=== PATIENT | male | born 1955 | race Caucasian/White ===

== ENCOUNTER 2020-02-15 19:17 | Observation (INO) | payer MEDICARE, MEDICAID ==
[2020-02-15] VITALS (12 sets, daily range): BP systolic 135–171; BP diastolic 66–81
[~2020-02-15] VITALS: Ht 188 cm; Wt 74.4 kg
--- OUTSIDE RECORDS SUMMARY | 2020-02-15 19:27 | XMS REPORT ---
Author Author Christiano WEBB Organization [facility] Address [address] [place], [place] [address] Care Team Providers Care Purchasing Intern Name Role Phone CELI WEBB PCP CELI WEBB PreferredProvider Allergies and Adverse Reactions Not available. Plan of Treatment Not available. Medications Active Name Start Date Estimated Completion Date SIG Co mments Vraylar 1.5 mg oral capsule 02/11/2019 03/13/2019 take 1 capsule (1.5 mg) by oral route once daily for 30 days metformin 500 mg oral tablet 02/11/2019 03/13/2019 attila e 1 tablet (500 mg) by oral route 2 times per day with morning and evening meals for 30 days Discontinued Name Start Date Discontinued Date SIG Comments olanzapine 20 mg oral tablet 02/07/2019 02/11/2019 gabapentin 800 mg oral tablet 01/28/2019 02/11/2019 duloxetine 60 mg oral capsule,delayed release(DR/EC) 01/22/2019 Problem List Description Status Onset Schizoaffective disorder, bipolar type Active Type 2 diabetes mellitus with hyperglycemia Active Medication management Active Bipolar affective disorder, current epis ode depressed, current episode severity unspecified Active 02/14/2019 Type 2 diabetes mellitus with hyperglyce modesta, without long-term current use of insulin Active 02/14/2019 Vital Signs Date Time BP-Sys(mm[Hg] BP-Lizz(mm[Hg]) HR(bpm) RR(rpm) Temp WT HT HC BMI BSA BMI Percentile O2 Sat(%) 02/10/2019 2:58:00 PM 132 mmHg 72 mmHg 72 bpm 19 rpm 98.1 F 173.312 lbs 96 % Social History Not available. History of Procedures Date Ordered Description Order Status 02/11/2019 12:00 AM COMPLETE CBC W/AUTO DIFF WBC Returned 02/11/2019 12:00 AM COMPREHEN METABOLIC PANEL Returned 02/11/2019 12:00 AM GLYCOSYLATED HEMOGLOBIN TEST Returned 02/11/2019 12:00 AM LIPID PANEL Returned 02/11/2019 12:00 AM Prostate Cancer Screening Returned Results Summary Not available. History Of Immunizations Not available. History of Past Illness Name Date of Onset Comments Schizoaffective disorder, bipolar type Type 2 diabetes mellitus with hyperglycemia Medication management Bipolar affective disorder, current epis ode depressed, current episode severity unspecified 02/14/2019 Type 2 diabetes mellitus with hyperglyce modesta, without long-term current use of insulin 02/14/2019 Schizoaffective disorder, bipolar type Feb 11 2019 9:48AM Type 2 diabetes mellitus with hyperglycemia Feb 11 2019 9:4 8AM Medication management Feb 11 2019 9:48AM Prostate cancer screening Feb 11 2019 9:48AM Smoker Feb 10 2019 3:01PM Medication management Feb 10 2019 3:01PM Weight loss, non-intentional Feb 10 2019 3:01PM Type 2 diabetes mellitus with hyperglycemia Feb 10 2019 3:0 1PM Bipolar affective disorder, current epis ode depressed, current episode severity unspecified Feb 10 2019 3:01PM Stress due to marital problems Feb 10 2019 3:01PM Schizoaffective disorder, bipolar type Feb 10 2019 3:01PM Payers Insurance Name Company Name Plan Name Plan Number Policy Number Charles cy Group Number Start Date Medicare [facility] Medicare RH [id number] N/ A Medicare Part A Medicare - Lab/Xray [id number] N/A [facility] [employer] [facility] Comm [id number] N/A History of Encounters Visit Date Visit Type Provider 02/10/2019 Office visit CELI JJ
--- OUTSIDE RECORDS SUMMARY | 2020-02-15 19:27 | XMS REPORT ---
Author Author Christiano WEBB Organization [facility] Address [address] [place] [id number] Care Team Providers Care Education Professional Name Role Phone CELI WEBB PCP CELI WEBB PreferredProvider Allergies and Adverse Reactions Not available. Plan of Treatment Planned Activity Comments Planned Date Planned Time Plan/Goal CBC with Differential 02/11/2019 12:00 AM CMP 02/11/2019 12:00 AM Hgb A1c 02/11/2019 12:00 AM .Lipid Panel 02/11/2019 12:00 AM Medications Active Name Start Date Estimated Completion [...] mellitus with hyperglycemia Active Medication management Active Vital Signs Date Time BP-Sys(mm[Hg] BP-Lizz(mm[Hg]) HR(bpm) RR(rpm) Temp WT HT HC BMI BSA BMI Percentile O2 Sat(%) 02/10/2019 2:58:00 PM 132 mmHg 72 mmHg 72 bpm 19 rpm 98.1 F 173.312 lbs 96 % Social History Not available. History of Procedures Not available. Results Summary Not available. History Of Immunizations Not available. History of Past Illness Name Date of Onset Comments Schizoaffective disorder, bipolar type Type 2 diabetes mellitus with hyperglycemia Medication management Schizoaffective disorder, bipolar type Feb 11 2019 9:48AM Type 2 diabetes mellitus with hyperglycemia Feb 11 2019 9:4 8AM Medication management Feb 11 2019 9:48AM Prostate cancer screening Feb 11 2019 9:48AM Payers Insurance Name Company Name Plan Name Plan Number Policy Number Charles cy Group Number Start Date Medicare RHC Medicare [facility] [id number] N/ A Medicare Part A Medicare - Lab/Xray [id number] N/A [facility] [id number] N/A History of Encounters Visit Date Visit Type Provider 02/10/2019 Office visit CELI JJ
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
--- OUTSIDE RECORDS SUMMARY | 2020-02-15 19:28 | XMS REPORT ---
Author Author Christiano Case Organization Severino Case MD Address [address] [place] [address] Care Team Providers Care Dock Operations Supervisor Name Role Phone Severino Case Unavailable PROBLEMS Type Condition ICD9-CM Code [id number] Code Onset Dates Condition S tatus SNOMED Code Problem Type 2 diabetes mellitus with other specified complication E11.69 Active 12977330338872 Problem Low back pain M54.5 Active 446278 007 Problem Essential (primary) hypertension I10 Active 87780951 ALLERGIES Unknown Allergies SOCIAL HISTORY No smoking Hx information available PLAN OF CARE VITAL SIGNS MEDICATIONS Medication Instructions Dosage Frequency Start Date End Date Duration S tatus Hydrocodone-Acetaminophen 5-325 MG Orally q.i.d. for pain 1 tablet as needed 30 days Active RESULTS No Results PROCEDURES No Known procedures IMMUNIZATIONS No Known Immunizations
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
--- OUTSIDE RECORDS SUMMARY | 2020-02-15 19:28 | XMS REPORT ---
Author Christiano Ortiz Organization [employer] Address Unknown Phone Unavailable Care Team Providers Care Rehab Rn Name Role Phone Raleigh Nuno CP Unavailable Allergies No Known Allergies Problems Problem Type Condition ICD-9 Code Onset Dates Condition Statu s Problem Polyneuropathy in diabetes 357.2 A ctive Problem Lumbago 724.2 Active Problem Unspecified essential hypertension 401.9 Active Problem Diabetes with other specifie d manifestations, type II or unspecified type, not stated as uncontrolled 250.80 Active Assessment Lumbago 724.2 Active Medications Medication Code System Code Instructions Start Date End Date Status Dosage Hydrocodone-Acetaminophen [facility] [address]-81 5-325 MG Orally q.i. d. for pain 1 tablet as needed Results No Known Results Summary Purpose [employer] Submission
--- OUTSIDE RECORDS SUMMARY | 2020-02-15 19:28 | XMS REPORT | Clinical Summary ---
Author Author Christiano Coreas Organization [facility] Address Unknown Phone Unavailable Allergies, Adverse Reactions, Alerts Allergy Name Reaction Description Start Date Severity Status Pr ovider Allergies Unknown Conditions or Problems Problem Name Problem Code Onset Date Status Entry Date Provider Comment Standard Description Annotate Diabetes, Type 2 250.00 Active Karey Li RMTina Diabetes mellitus without mention of complication, type II or unspecified type, not stated as uncontrolled Hypertension 401.9 Active MARLA MerlosTina Unspecified essential hypertension Medication List Medication Instructions Start Date Stop Date Generic Name NDC Status Provider Patient Instruction GABAPENTIN 800 MG ORAL TABS 1 tid GABAPENTIN 584557 43251 Active Karey Li RMA Active HYDROCODONE-ACETAMINOPHEN 5-325 MG ORAL TABS 1 qid 8 HYDROCODONE-ACETAMINOPHEN 38515488131 Active Karey Li RMA Active GLUCOPHAGE 1000 MG ORAL TABS 1 bid METFORMIN HCL 91732766471 Active Karey Li RMA Active LISINOPRIL-HYDROCHLOROTHIAZIDE 20-12.5 MG ORAL TABS 1 daily 20 07/07/28 LISINOPRIL-HYDROCHLOROTHIAZIDE 62150877867 Active Karey Li RMA Active PHENAZO 200 MG ORAL TABS 1 tab prn PHENAZOPYRIDIN E HCL 49530511413 Active Karey Li RMA Active LOVASTATIN 20 MG ORAL TABS 1 daily LOVASTATIN 8875826 7606 Active Karey Li RMA Active LORAZEPAM 2 MG ORAL TABS 1 tid LORAZEPAM 8139280642 1 Active Karey Li RMA Active LANTUS SOLOSTAR 100 UNIT/ML SOLN 30 units daily INSULIN GLARGINE 26690144234 Active Karey Li RMA Active CYMBALTA 20 MG ORAL CPEP 1 bid DULOXETINE HCL 46364 916727 Active AMARI Merlos Active ZYPREXA 20 MG ORAL TABS 1 daily OLANZAPINE 7413552636 0 Active AMARI Merlos Active
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
--- OUTSIDE RECORDS SUMMARY | 2020-02-15 19:28 | XMS REPORT | Continuity of Care Document ---
Author Author [facility] Organization [facility] Address [address] [place] [address] Phone Unavailable Care Team Providers Care Accounting Machine Operator Name Role Phone GOKUL YEAGER MD PCP Insurance Providers Payer Name Policy Number Subscriber Name Relationship Medicare [id number] Maria Ines Rossi 18 Self / Same As Patient Advance Directives Directive Response Recorded Date/Time Living Will No 07/13/16 9:48am Advance Directives No 07/25/16 8:47am Advance Directive on File No 10/14/16 8:52p m Durable POA for HC No 10/14/16 8:52pm Power of Welcome Hostess No 10/14/16 8:52pm Organ Donor No 10/14/16 8:52pm Living Will No 10/14/16 8:52pm Chief Complaint and Reason for Visit Chief Complaint Altered Mental Status Reason for Visit [id number] Recent unexplained weight loss [id number] Problems Active Problems Medical Problem Onset Date Status Dehydration, moderate Unknown Acute Recent unexplained weight loss Unknown Acute Schizophrenia, chronic condition Unknown Acute Seizure with provoking factor Unknown Acute Medications Current Home Medications Medication Dose Units Route Directions Days/Qty Instructions Star t Date Olanzapine 5 Mg 15 Mg Oral Once A Day for Unknown 07/24/16 Duloxetine Hcl 20 Mg 20 Mg Oral Twice A Day for Unknown 07/24/16 Metformin Hcl 1,000 Mg 500 Mg Oral Twice A Day for Diabetes 10/14/16 Lorazepam 1 Mg 0.5 Mg Oral Four Times A Day for Anxiety 10/14/16 Gabapentin 800 Mg 800 Mg Oral Three Times A Day for Neuropat hy 10/14/16 Past Home Medications Medication Directions Ordered Status Lovastatin 20 Mg Tablet, 20 Mg Oral Once A Day for High Cholestr ol 07/24/16 Discontinued Lisinopril/Hydrochlorothiazide 1 Each Tablet, 1 Each O ral Once A Day for Hypertension 07/24/16 Discontinued Social History Social History Problem Response Recorded Date/Cleve e Alcohol Use other 10/14/2016 6:49pm Smoking Status Current every day smoker 10/14/2016 6:49 pm Smoked in the last 12 months? Yes 10/14/2016 6:49pm Do you dip or chew tobacco? No 10/14/2016 6 :49pm Approx how many cigs per day? 22 10/14/2016 6:49pm Level of Dependence High 10/14/2016 6:49pm Former smoker, last day smoked? 10/14/2016 10/14/20 16 6:49pm Query Response Start Date Stop Date Smoking Status Current every day smoker 020 Hospital Discharge Instructions No hospital discharge instructions. Plan of Care Discharge Date 10/14/16 8:30pm Disposition 01 D/C HOME Condition at Discharge Improved Instructions/Education Provided Altered Mental Status (ED) Forms Provided ER Discharge Phone Call [facility] k Prescriptions See Medication Section Referrals GOKUL YEAGER MD - Additional Instructions/Education Drink WATER every 20 minutes while awake through the next 24 hours, with a goal of 4 liters (enough that your urine is either clear, or very pale yellow). Obtain rest/ avoid exertion for the next [address] Follow up with Dr. Yeager to discuss further diagnostic evaluation of sudden weight loss. A full body bone scan may be of benefit. Reference Links [facility] Functional Status Query Response Date Recorded Activities of Daily Living Performs w/o Assistance October 14, 2016 6:36pm Cognitive Function Intact October 14, 2016 6:36pm Allergies, Adverse Reactions, Alerts No known allergies. Immunizations No immunization records. Vital Signs Acute Vital Signs Vital Response Date/Time Temperature (Fahrenheit) 97.6 degrees F (97.6 - 99.5) 2015 8:25pm Temperature (Calculated Celsius) 36.59621 degrees C (36.4 - 37.5) 10/14/2016 8:25pm Temperature Source Temporal Artery Scan 10/14/2016 8:25pm Pulse Pulse Ox Pulse Rate (adult) 80 beats per minute (60 - 90) 10/14/20 8:25pm Pulse Location Modifier Right 10/14/2016 7: 45pm Oxygen Saturation Respiratory Rate 16 breaths per minute (12 - 24) 10/14/20 8:25pm O2 Sat by Pulse Oximetry 96 % (90 - 100) 10/14/2016 8 :25pm Blood Pressure 160/76 mm Hg 10/14/2016 8:25pm Blood Pressure Mean 104 mm Hg 10/14/2016 8:25pm Height 6 ft 2 in Weight 184 lb Body Mass Index 23.6 kg/m^2 Results Pending Laboratory Results Test Name Collection Date/Time Procedures Procedure Status Date Provider(s) ANESTH LOW INTESTINE SCOPE Completed 07/25/16 DENA BETANCOURT GLASS POLISHER DIAGNOSTIC COLONOSCOPY Completed 07/25/16 MARIA INES BROWN MD INSPECTION OF LOWER INTESTINAL TRACT, ENDO Completed 07/25 MARIA INES BROWN MD, ARIC B. GLASS POLISHER Encounters Encounter Location Arrival/Admit Date Discharge/Depart Date Attending Provider Departed Emergency Room [facility] 10/14/16 6:15pm 10/14 8:30pm KM MCKEON APRN Departed Surgical Day Care [facility] 07/25/16 7:35am 07/25/16 11:50am GOKUL YEAGER MD Registered Clinic [facility] 07/13/16 9:47am GOKUL YEAGER MD Recent Diagnosis
--- OUTSIDE RECORDS SUMMARY | 2020-02-15 19:28 | XMS REPORT ---
Author Christiano Ortiz Organization [employer] Address Unknown Phone Unavailable Care Team Providers Care School Community Relations Coordinator Name Role Phone Raleigh Nuno CP Unavailable Allergies No Known Allergies Problems Problem Type Condition Code Onset Dates Condition Statu s Problem Low back pain M54.5 Active Problem Essential (primary) hypertension I10 Active Problem Type 2 diabetes mellitus with other specified complica tion E11.69 Active Assessment Lumbago 724.2 Active Medications Medication Code System Code Instructions Start Date End Date Status Dosage Hydrocodone-Acetaminophen [facility] [address]-21 5-325 MG Orally q.i. d. for pain 1 tablet as needed Results No Known Results Summary Purpose [employer] Submission
--- OUTSIDE RECORDS SUMMARY | 2020-02-15 19:28 | XMS REPORT ---
Author Author Christiano Case Organization [employer] Address Unknown Phone Unavailable Care Team Providers Care Time Piece Repairer Name Role Phone Severino Case CP Unavailable Allergies No Known Allergies Problems Problem Type Condition Code Onset Dates Condition Statu s Problem Low back pain M54.5 Active Problem Essential (primary) hypertension I10 Active Problem Type 2 diabetes mellitus with other specified complica tion E11.69 Active Medications Medication Code System Code Instructions Start Date End Date Status Dosage Hydrocodone-Acetaminophen [facility] [address]-22 5-325 MG Orally q.i. d. for pain 1 tablet as needed Results No Known Results Summary Purpose [employer] Submission
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
--- OUTSIDE RECORDS SUMMARY | 2020-02-15 19:28 | XMS REPORT ---
Author Christiano Ortiz Organization [employer] Address Unknown Phone Unavailable Care Team Providers Care Sub Arc Operator Name Role Phone Raleigh Nuno CP Unavailable [...] Start Date End Date Status Dosage Hydrocodone-Acetaminophen [facility] [address]-93 5-325 MG Orally q.i. d. for pain 1 tablet as needed Results No Known Results Summary Purpose [employer] Submission
--- OUTSIDE RECORDS SUMMARY | 2020-02-15 19:28 | XMS REPORT ---
Author Christiano Ortiz Organization [employer] Address Unknown Phone Unavailable Care Team Providers Care Conservation Or Heritage Architect Name Role Phone Raleigh Nuno CP Unavailable Allergies No Known Allergies Problems Problem Type Condition ICD-9 Code Onset Dates Condition Statu s Problem Polyneuropathy in diabetes 357.2 A ctive Problem Lumbago 724.2 Active Problem Unspecified essential hypertension 401.9 Active Problem Diabetes with other specifie d manifestations, type II or unspecified type, not stated as uncontrolled 250.80 Active Medications Medication Code System Code Instructions Start Date End Date Status Dosage Hydrocodone-Acetaminophen [facility] [address]-37 5-325 MG Orally q.i. d. for pain 1 tablet as needed Results No Known Results Summary Purpose [employer] Submission
--- OUTSIDE RECORDS SUMMARY | 2020-02-15 19:28 | XMS REPORT ---
Author Christiano Ortiz Organization [employer] Address Unknown Phone Unavailable Care Team Providers Care Safe Deposit Box Rental Clerk Name Role Phone Raleigh Nuno CP Unavailable [...] Start Date End Date Status Dosage Hydrocodone-Acetaminophen [facility] [address]-44 5-325 MG Orally q.i. d. for pain 1 tablet as needed Results No Known Results Summary Purpose [employer] Submission
--- OUTSIDE RECORDS SUMMARY | 2020-02-15 19:28 | XMS REPORT | Clinical Summary ---
Author Author Christiano Coreas Organization [facility] Address Unknown Phone Unavailable Allergies, Adverse Reactions, [...] 800 MG ORAL TABS 1 tid GABAPENTIN 564257 63262 Active Karey Li RMA Active HYDROCODONE-ACETAMINOPHEN 5-325 MG ORAL TABS 1 qid 8 HYDROCODONE-ACETAMINOPHEN 99407277114 Active Karey Li RMA Active GLUCOPHAGE 1000 MG ORAL TABS 1 bid METFORMIN HCL 62509095512 Active Karey Li RMA Active LISINOPRIL-HYDROCHLOROTHIAZIDE 20-12.5 MG ORAL TABS 1 daily 20 07/07/28 LISINOPRIL-HYDROCHLOROTHIAZIDE 47244812331 Active Karey Li RMA Active PHENAZO 200 MG ORAL TABS 1 tab prn PHENAZOPYRIDIN E HCL 83228680386 Active Karey Li RMA Active LOVASTATIN 20 MG ORAL TABS 1 daily LOVASTATIN 5941862 7606 Active Karey Li RMA Active LORAZEPAM 2 MG ORAL TABS 1 tid LORAZEPAM 8426087952 1 Active Karey Li RMA Active LANTUS SOLOSTAR 100 UNIT/ML SOLN 30 units daily INSULIN GLARGINE 09988548295 Active Karey Li RMA Active CYMBALTA 20 MG ORAL CPEP 1 bid DULOXETINE HCL 07907 143781 Active AMARI Merlos Active ZYPREXA 20 MG ORAL TABS 1 daily OLANZAPINE 9269401316 0 Active AMARI Merlos Active
--- OUTSIDE RECORDS SUMMARY | 2020-02-15 19:28 | XMS REPORT ---
Author Christiano Ortiz Organization [employer] Address Unknown Phone Unavailable Care Team Providers Care Program Coordinator Executive Education Name Role Phone Raleigh Nuno CP Unavailable [...] Start Date End Date Status Dosage Hydrocodone-Acetaminophen [facility] [address]-30 5-325 MG Orally q.i. d. for pain Active 1 tablet as needed Results No Known Results Summary Purpose [employer] Submission
--- OUTSIDE RECORDS SUMMARY | 2020-02-15 19:28 | XMS REPORT ---
Author Christiano Ortiz Organization [employer] Address Unknown Phone Unavailable Care Team Providers Care Security Escort Name Role Phone Raleigh Nuno CP Unavailable Allergies, Adverse Reactions, Alerts Substance Reaction Event Type N.K.D.A. Info Not Available Non Drug Allergy Problems Problem Type Condition Code Onset Dates Condition Statu s Assessment Acute sinusitis, unspecified J01.90 Active Medications Medication Code System Code Instructions Start Date End Date Status Dosage Cephalexin [facility] [address]-68 500 MG Orally Three times a day N 2014Sep 03, 2015 1 capsule Zyprexa [facility] [address]-50 20 MG Orally Once a day 1 tablet Lantus [facility] [address]-52 100 UNIT/ML Subcutaneous Once a day February 30 units Lancet Device [facility] [address] . dx code 250.80 once a day December 23, 2013 as directed Hydrocodone-Acetaminophen [facility] [address]-98 5-325 MG Orally q.i. d. for pain 1 tablet as needed Lisinopril-Hydrochlorothiazide [facility] 07455370909 20-12.5 MG TAKE 1 TABLET BY MOUTH EVERY DAY FOR BLOOD PRESSURE Contour Blood Glucose System [facility] [address]-96 * March 18, 2013 as directed Lorazepam [facility] [address]-41 2 MG Orally Three times a day 1 tablet Lantus SoloStar [facility] [address]-12 100 UNIT/ML Subcutaneous once a day February 22, 2015 30 units Neurontin [facility] [address]-61 300 MG TAKE 1 CAPSULE BY MOUTH TWICE DAILY Ascensia Contour Test [facility] 0 In Vitro Sep 25, 2014 as directed Metformin HCl [facility] 09877453382 1000 MG TAKE 1 TABLET BY MOUTH TWICE DAILY Lovastatin [facility] 25919848864 20 MG TAKE 1 TA BLET BY MOUTH EVERY DAY Gabapentin [facility] [address]-33 600 MG Orally Three times a day Jun 07, 2015 1 tablet Lisinopril [facility] [address]-80 20 MG Orally Once a day 1 tablet Cymbalta [facility] [address]-56 20 MG Orally Twice a day 1 capsule Insulin Syringe [facility] 8271-793123 31G X 5/16 dx code 250.80 once a day December 23, 2013 as directed Procedures Procedure Coding System Code Date Office Visit, Est Pt., Level 3 CPT-4 53242 N 2014 Vital Signs Date/Time: Aug 24, 2015 BMI 30.87 Index Weight 234 lbs Height 73 in Oximetry 97 % Cardiac Monitoring Heart Rate 79 /min Blood Pressure Diastolic 82 mm Hg Blood Pressure Systolic 136 mm Hg Respiratory Rate 20 /min Temperature 96.8 F Results No Known Results Summary Purpose [employer] Submission
--- OUTSIDE RECORDS SUMMARY | 2020-02-15 19:28 | XMS REPORT ---
Author Christiano Ortiz [facility] Address Unknown Phone Unavailable Care Team Providers Care Mold Closer Helper Name Role Phone Raleigh Nuno CP Unavailable Allergies, Adverse Reactions, Alerts Substance Reaction Event Type N.K.D.A. Info Not Available Non Drug Allergy Problems Problem Type Condition Code Onset Dates Condition Statu s Problem Low back pain M54.5 Active Problem Essential (primary) hypertension I10 Active Problem Type 2 diabetes mellitus with other specified complica tion E11.69 Active Assessment Thrombocytopenia, unspecified D69.6 Active Assessment Type 2 diabetes mellitus with other specified complica tion E11.69 Active Medications Medication Code System Code Instructions Start Date End Date Status Dosage Lantus SoloStar [facility] [address]-12 100 UNIT/ML Subcutaneous once a day February 22, 2015 30 units Insulin Syringe [facility] 8271-712420 31G X 5/16 dx code 250.80 once a day December 23, 2013 as directed Lovastatin [facility] [id number] 20 MG TAKE 1 TA BLET BY MOUTH EVERY DAY Contour Blood Glucose System [facility] [address]-42 * March 18, 2013 as directed Lancet Device [facility] 20716-62468 . dx code 250.80 once a day December 23, 2013 as directed Hydrocodone-Acetaminophen [facility] [address]-79 5-325 MG Orally q.i. d. for pain 1 tablet as needed Gabapentin [facility] [address]-42 800 MG Orally take 1 tablet by mouth three times a day Phenazopyridine HCl [facility] [address]-89 200 MG Orally Three times a day February 16, 2016 1 tablet prn bladder pain Lantus [facility] [address]-51 100 UNIT/ML Subcutaneous Once a day February 30 units Zyprexa [facility] [address]-17 20 MG Orally Once a day 1 tablet Cymbalta [facility] [address]-96 20 MG Orally Twice a day 1 capsule Metformin HCl [facility] 62307493876 1000 MG TAKE 1 TABLET BY MOUTH TWICE DAILY [facility] Contour Test NDC 0 In Vitro Sep 25, 2014 as directed Lorazepam [facility] [address]-05 2 MG Orally Three times a day 1 tablet Lisinopril-Hydrochlorothiazide [facility] 52014143737 20-12.5 MG TAKE 1 TABLET BY MOUTH EVERY DAY FOR BLOOD PRESSURE Procedures Procedure Coding System Code Date Office Visit, Est Pt., Level 3 CPT-4 50425 S ept 2015 Vital Signs Date/Time: Jul 03, 2016 BMI 25.81 Index Weight 197 lbs Height 73.25 in Oximetry 95 % Cardiac Monitoring Heart Rate 88 /min Blood Pressure Diastolic 73 mm Hg Blood Pressure Systolic 135 mm Hg Respiratory Rate 20 /min Results No Known Results Summary Purpose [employer] Submission
[2020-02-15] MEDS ORDERED: NS IV 1000 ML 1,000 ML IV ONE (19:29)
--- OUTSIDE RECORDS SUMMARY | 2020-02-15 19:29 | XMS REPORT ---
Author Author Christiano Case Organization Severino Case MD Address [address] [place] [address] Care Team Providers Care [employer] Principal Name Role Phone Severino Case Unavailable PROBLEMS Type Condition ICD9-CM Code ITF42-CB Code Onset Dates Condition S tatus SNOMED Code Problem Schizophrenia, unspecified F20.9 Act taina 17828675 Problem Personal history of tobacco use, presenting hazards to health V15.82 Active 6442238595054 Problem Essential (primary) hypertension I10 Active 88640853 Problem Type 2 diabetes mellitus with other specified complication E11.69 Active 49232169514222 Problem Low back pain M54.5 Active 760103 007 ALLERGIES Unknown Allergies SOCIAL HISTORY No smoking Hx information available PLAN OF CARE VITAL SIGNS MEDICATIONS Medication Instructions Dosage Frequency Start Date End Date Duration S tatus Hydrocodone-Acetaminophen 5-325 MG Orally q.i.d. for pain 1 tablet as needed 30 days Active RESULTS No Results PROCEDURES No Known procedures IMMUNIZATIONS No Known Immunizations
--- OUTSIDE RECORDS SUMMARY | 2020-02-15 19:29 | XMS REPORT ---
Author Author Christiano Case Organization [employer] Address Unknown Phone Unavailable Care Team Providers Care Academic Tutor Name Role Phone Severino Case CP Unavailable Allergies No Known Allergies Problems Problem Type Condition Code Onset Dates Condition Statu s Problem Low back pain M54.5 Active Problem Essential (primary) hypertension I10 Active Problem Type 2 diabetes mellitus with other specified complica tion E11.69 Active Medications No Known Medications Results No Known Results Summary Purpose [employer] Submission
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
--- OUTSIDE RECORDS SUMMARY | 2020-02-15 19:29 | XMS REPORT ---
Author Author Christiano Case Organization [employer] Address Unknown Phone Unavailable Care Team Providers Care Grails Web Application Developer Name Role Phone Severino Case CP Unavailable Allergies No Known Allergies Problems Problem Type Condition Code Onset Dates Condition Statu s Problem Low back pain M54.5 Active Problem Essential (primary) hypertension I10 Active Problem Type 2 diabetes mellitus with other specified complica tion E11.69 Active Assessment Essential (primary) hypertension I10 Active Assessment Type 2 diabetes mellitus with other specified complica tion E11.69 Active Assessment Low back pain M54.5 Active Medications No Known Medications Results No Known Results Summary Purpose [employer] Submission
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
--- OUTSIDE RECORDS SUMMARY | 2020-02-15 19:29 | XMS REPORT ---
Author Christiano Ortiz Organization [employer] Address Unknown Phone Unavailable Care Team Providers Care Cash Analyst Name Role Phone Raleigh Nuno CP Unavailable Allergies, Adverse Reactions, Alerts Substance Reaction Event Type N.K.D.A. Info Not Available Non Drug Allergy Problems Problem Type Condition ICD-9 Code Onset Dates Condition Statu s Problem Polyneuropathy in diabetes 357.2 A ctive Problem Lumbago 724.2 Active Problem Unspecified essential hypertension 401.9 Active Assessment Lumbago 724.2 Active Problem Diabetes with other specifie d manifestations, type II or unspecified type, not stated as uncontrolled 250.80 Active Assessment Cellulitis and abscess of hand, except fingers and wagner mb 682.4 Active Medications Medication Code System Code Instructions Start Date End Date Status Dosage Hydrocodone-Acetaminophen [facility] [address]-90 5-325 MG Orally q.i. d. for pain Active 1 tablet as needed Bactrim DS [facility] [address]-33 800-160 MG Orally twice a day Oct 01, 2014 Oct 11, 2014 Active 1 tablet Metformin HCl [facility] [address]-47 1000 MG Active TA KE 1 TABLET BY MOUTH TWICE DAILY Lisinopril-Hydrochlorothiazide [facility] [address]-32 20-12.5 MG Active TAKE 1 TABLET BY MOUTH EVERY DAY FOR BLOOD PRESSURE Neurontin [facility] [address]-17 300 MG Active TAKE 1 CAPSULE BY MOUTH TWICE DAILY [employer] Contour Test ND 0 In Vitro Sep 25, 2014 Ac tive as directed Lancet Device [facility] [address] . dx code 250.80 once a day December 23, 2013 Active as directed Lovastatin [facility] [address]-70 20 MG Active TAKE 1 TABLET BY MOUTH EVERY DAY Insulin Syringe [facility] 8271-595956 31G X 5/16 dx code 250.80 once a day December 23, 2013 Active as directed Flexeril [facility] [address]-76 10 MG Orally up to three times a day March 27, 2012 Active 1 tablet Etodolac [facility] [address]-73 400 MG Active TAKE 1 T ABLET BY MOUTH TWICE DAILY Cymbalta [facility] [address]-87 20 MG Orally Twice a day Active 1 capsule Lantus [facility] [address]-86 100 UNIT/ML Subcutaneous Once a day February 12, 2014 Active 30 units Zyprexa [facility] [address]-14 20 MG Orally Once a day Ac tive 1 tablet Lisinopril [facility] [address]-25 20 MG Orally Once a day Active 1 tablet Contour Blood Glucose System [facility] [address]-82 * March 18, 2013 Active as directed Procedures Procedure Coding System Code Date BP SCR PRFRM RCMDD DEFIND SCR INTVL CPT-4 G8783 Oct 01, 2014 Office Visit, Est Pt., Level 3 CPT-4 36465 D 2013 Vital Signs Date/Time: Oct 01, 2014 BMI 29.16 Index Weight 215 lbs Height 72 in Oximetry 97 % Cardiac Monitoring Heart Rate 88 /min Blood Pressure Diastolic 68 mm Hg Blood Pressure Systolic 136 mm Hg Respiratory Rate 20 /min Results No Known Results Summary Purpose [employer] Submission
--- OUTSIDE RECORDS SUMMARY | 2020-02-15 19:29 | XMS REPORT ---
Author Author Christiano Case Organization [employer] Address Unknown Phone Unavailable Care Team Providers Care Organic Section Technical Lead Name Role Phone Severino Case CP Unavailable Allergies No Known Allergies Problems Problem Type Condition Code Onset Dates Condition Statu s Problem Low back pain M54.5 Active Problem Essential (primary) hypertension I10 Active Problem Type 2 diabetes mellitus with other specified complica tion E11.69 Active Medications Medication Code System Code Instructions Start Date End Date Status Dosage Lantus [facility] [address]-40 100 UNIT/ML Subcutaneous Once a day February 30 units Results No Known Results Summary Purpose [employer] Submission
--- OUTSIDE RECORDS SUMMARY | 2020-02-15 19:29 | XMS REPORT | Continuity of Care Document ---
Author Author [facility] Organization [facility] Address [address] [place] [address] Phone Unavailable Care Team Providers Care Roller Engraver Name Role Phone GOKUL YEAGER MD PCP Insurance Providers Payer Name Policy Number Subscriber Name Relationship Medicare [id number] Maria Ines Rossi 18 Self / Same As Patient Advance Directives Directive Response Recorded Date/Time Living Will No 07/13/16 9:48am Advance Directives No 07/25/16 8:47am Advance Directive on File No 07/25/16 8:47a m Problems No problem information available. Medications Current Home Medications Medication Dose Units Route Directions Days/Qty Instructions Star t Date Olanzapine 5 Mg 20 Mg Oral Once A Day for Unknown 07/24/16 Duloxetine Hcl 20 Mg 20 Mg Oral Twice A Day for Unknown 07/24/16 Insulin Glargine,Hum.rec.anlog 100 Unit/1 Ml 0 Sosa b-Q Once A Day for Diabetes 07/24/16 Lovastatin 20 Mg 20 Mg Oral Once A Day for High Cholestrol 07/24/16 Phenazopyridine Hcl 200 Mg 200 Mg Oral T hree Times A Day as needed for Bladder Pain 07/24/16 Lisinopril/Hydrochlorothiazide 1 Each 1 Each Oral On ce A Day for Hypertension 07/24/16 Gabapentin 800 Mg 800 Mg Oral Three Times A Day for Unknown 07/24/16 Social History No social history. Hospital Discharge Instructions No hospital discharge instructions. Plan of Care Discharge Date 07/25/16 11:50am Prescriptions See Medication Section Functional Status No functional status results. Allergies, Adverse Reactions, Alerts No allergy information available. Immunizations No immunization records. Vital Signs Acute Vital Signs Vital Response Date/Time Temperature (Fahrenheit) 97.7 degrees F (97.6 - 99.5) 2015 10:33am Temperature (Calculated Celsius) 36.48904 degrees C (36.4 - 37.5) 07/25/2016 10:33am Temperature Source Temporal Artery Scan 07/25/2016 10:33am Pulse Pulse Rate (adult) 68 beats per minute (60 - 90) 07/25/20 16 10:48am Pulse Pulse Rate (adult) 65 beats per minute (60 - 90) 07/25/20 16 10:48am Oxygen Saturation Respiratory Rate 16 breaths per minute (12 - 24) 07/25/20 10:48am O2 Sat by Pulse Oximetry 96 % (90 - 100) 07/25/2016 1 0:48am Oxygen Saturation Respiratory Rate 18 breaths per minute (12 - 24) 07/25/20 16 10:48am O2 Sat by Pulse Oximetry 96 % (90 - 100) 07/25/2016 1 0:48am Blood Pressure 148/74 mm Hg 07/25/2016 10:48am Blood Pressure Mean 98 mm Hg 07/25/2016 10:48a m Blood Pressure 162/89 mm Hg 07/25/2016 10:48am Blood Pressure Mean 113 mm Hg 07/25/2016 10:48a m Results No known relevant diagnostic tests, laboratory data and/or discharge summary. Procedures Procedure Status Date Provider(s) Colonoscopy Completed 07/25/16 ANITRA BROWN MD Encounters Encounter Location Arrival/Admit Date Discharge/Depart Date Attending Provider Departed Surgical Day Care [facility] 07/25/16 7:35am 07/25/16 11:50am GOKUL YEAGER MD Registered Clinic [facility] 07/13/16 9:47am GOKUL YEAGER MD
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
--- OUTSIDE RECORDS SUMMARY | 2020-02-15 19:29 | XMS REPORT ---
Author Christiano Ortiz Organization [employer] Address Unknown Phone Unavailable Care Team Providers Care It Sales Executive Name Role Phone Raleigh Nuno CP Unavailable [...] Date End Date Status Dosage Lantus SoloStar [facility] [address]-05 100 UNIT/ML Subcutaneous once a day February 22, 2015 30 units Results No Known Results Summary Purpose [employer] Submission
--- OUTSIDE RECORDS SUMMARY | 2020-02-15 19:29 | XMS REPORT ---
Author Author Christiano Case Organization [employer] Address Unknown Phone Unavailable Care Team Providers Care Coffee Roaster Name Role Phone Severino Case CP Unavailable Allergies, Adverse Reactions, Alerts Substance Reaction Event Type N.K.D.A. Info Not Available Non Drug Allergy Problems Problem Type Condition Code Onset Dates Condition Statu s Problem Low back pain M54.5 Active Problem Essential (primary) hypertension I10 Active Problem Type 2 diabetes mellitus with other specified complica tion E11.69 Active Assessment Thrombocytopenia, unspecified D69.6 Active Medications Medication Code System Code Instructions Start Date End Date Status Dosage Metformin HCl [facility] 93850281363 1000 MG TAKE 1 TABLET BY MOUTH TWICE DAILY Ascensia Contour Test ND 0 In Vitro Sep 25, 2014 as directed Cymbalta [facility] [address]-19 20 MG Orally Twice a day 1 capsule Lovastatin [facility] 12774352049 20 MG TAKE 1 TA BLET BY MOUTH EVERY DAY Gabapentin [facility] [address]-54 800 MG Orally take 1 tablet by mouth three times a day Lantus [facility] [address]-45 100 UNIT/ML Subcutaneous Once a day February 30 units Lorazepam [facility] [address]-30 2 MG Orally Three times a day 1 tablet Zyprexa [facility] [address]-21 20 MG Orally Once a day 1 tablet Contour Blood Glucose System [facility] [address]-60 * March 18, 2013 as directed Hydrocodone-Acetaminophen [facility] [address]-25 5-325 MG Orally q.i. d. for pain 1 tablet as needed Lancet Device [facility] [address] . dx code 250.80 once a day December 23, 2013 as directed Phenazopyridine HCl [facility] [address]-56 200 MG Orally Three times a day February 16, 2016 1 tablet prn bladder pain Lisinopril-Hydrochlorothiazide [facility] 96467262874 20-12.5 MG TAKE 1 TABLET BY MOUTH EVERY DAY FOR BLOOD PRESSURE Insulin Syringe [facility] 8271-116677 31G X 5/16 dx code 250.80 once a day December 23, 2013 as directed Procedures Procedure Coding System Code Date Office Visit, Est Pt., Level 1 CPT-[address] 2015 Results Name Result Date Reference Range Unit Abnormali ty Flag COMPLETE BLOOD COUNT ----Eos Auto 0.4 [id number] % ----Candler Auto 4.7 12040509 % ----Neutrophil Abs 5.58 [id number] 1.80-7.80 10e9/L ----Baso Auto 0.6 17214748 % ----Mean Plt Volume 12.4 [id number] 9.5-12.8 fL ----Monocyte Abs 0.34 [id number] 0.20-1.00 10e9/L ----Platelet Count 127 [id number] 146-367 10e9/L L ----Lymphocyte Abs 1.16 66050746 1.00-4.00 10e9/L ----MCHC 35.1 83437375 31.6-35.5 g/dL ----MCH 34.2 93329426 27.6-33.8 pg H ----MCV 97.3 55645775 83.7-99.8 fL ----RDW-SD 46.5 48252841 39.8-51.6 fL ----RDW 12.9 72542946 12.2-15.0 % ----Lymph Auto 16.2 76338801 % ----Neut Auto 78.0 25376281 % ----Eosinophil Abs 0.03 46960483 0.00-0.45 10e9/L ----Basophil Abs 0.04 87879052 0.00-0.20 10e9/L ----WBC 7.2 05210432 4.3-11.0 10e9/L ----RBC 4.77 02067035 4.34-5.61 10e12/L ----Hemoglobin 16.3 86622988 12.5-17.3 g/dL ----Hematocrit 46.4 81068414 38.3-51.2 % Summary Purpose [employer] Submission
--- OUTSIDE RECORDS SUMMARY | 2020-02-15 19:29 | XMS REPORT | Continuity of Care Document ---
Author Author [facility] Organization [facility] Address [address] [place] [address] Phone Unavailable Care Team Providers Care Line Repairer Name Role Phone GOKUL YEAGER MD PCP Insurance Providers Guarantor Maria Ines Rossi Address [address] [place] [address] Email N Payer Medicare Policy Number [id number] Subscriber's Name Maria Ines Rossi Relationship 18 Self / Same As Patient Effective Date 91 Advance Directives Directive Response Recorded Date/Time Living Will No 07/13/16 9:48am Advance Directives No 07/25/16 8:47am Advance Directive on File No 08/07/17 9:49p m Durable POA for HC No 08/07/17 9:49pm Power of Crossing [place] No 08/07/17 9:49pm Organ Donor No 08/07/17 9:49pm Living Will No 08/07/17 9:49pm Chief Complaint and Reason for Visit Chief Complaint Laceration Reason for Visit Laceration of index finger o f right hand without complication Problems Medical Problem Onset Date Status Dehydration, moderate Unknown Acute Recent unexplained weight loss Unknown Acute Schizophrenia, chronic condition Unknown Acute Seizure with provoking factor Unknown Acute Past Problems Medical Problem Onset Date Status Laceration of index finger of right hand without complicatio n Unknown Acute Medications Current Home Medications Medication Dose Units Route Directions Days Qty Instructio ns Start Date Duloxetine Hcl (Cymbalta) 20 Mg Capsule.dr 20 Mg Oral Twice A Day for Unknown Gabapentin 800 Mg Tablet 800 Mg Oral Three Times A Day for N europathy Metformin Hcl 1,000 Mg Tablet 500 Mg Oral Twice A Day for Di abetes Olanzapine (Zyprexa Tablet) 5 Mg Tablet 15 Mg Oral Once A D ay for Unknown Past Home Medications Medication Directions Ordered Status Lisinopril/Hydrochlorothiazide (Lisinopr il-Hctz 20-12.5 Mg Tab) 1 Each Tablet, 1 Each Oral Once A Day for Hypertension Discontinued Lorazepam 1 Mg Tablet, 0.5 Mg Oral Four Times A Day for Anxiety Discontinued Lovastatin 20 Mg Tablet, 20 Mg Oral Once A Day for High Cholestr ol Discontinued Social History Social History Problem Response Recorded Date/Time Onset Date Status Smoking Status Current every day smoker 08/07/2017 9:52pm Not Appli cable Not Applicable Smoked in the last 12 months? Yes 08/07/2017 9:52pm Not Ap plicable Not Applicable Do you dip or chew tobacco? No 08/07/2017 9:52pm Not Appl icable Not Applicable Approx how many cigs per day? 22 08/07/2017 9:52pm Not Ap plicable Not Applicable Level of Dependence High 08/07/2017 9:52pm Not Applicable N ot Applicable Former smoker, last day smoked? 10/14/2016 08/07/2017 9:52pm Not Applicable Not Applicable Smoking Status Start Date Stop Date Current every day smoker 10/14/2020 Hospital Discharge Instructions No hospital discharge instruction information available. Plan of Care Discharge Date 08/07/17 10:47pm Disposition 01 D/C HOME Condition at Discharge Stable and Improved Instructions/Education Provided How to Stop Smoking (E D) Laceration (ED) Forms Provided ER Discharge Phone Call [facility] k Prescriptions See Medication Section Referrals GOKUL YEAGER MD Address: [address] [address] [address] [place], [place] [address] Additional Instructions/Education Keep area clean and dry. Antibiotic ointment and dressing to laceration daily for the next 48 hours. If laceration begins to have pus/drainage, red streaks, increased pain, fever, seek medical attention immediately Tetanus was updated today F/U with PCP for suture removal in 7 days or sooner if needed Functional Status Query Response Date Recorded Activities of Daily Living Performs w/o Assistance August 07, 2017 9:52pm Cognitive Function Intact August 07, 2017 9:52pm Allergies, Adverse Reactions, Alerts No known allergies. 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 08/07/17 Administered 1 [id number] SANOFI- [employer]UR Query Response on File Recorded Date/Time Hx Influenza Vaccination No 08/07/17 9:50pm Hx Pneumococcal Vaccination No 08/07/17 9:5 0pm Hx Tetanus, Diphtheria Vaccination Unsure when 08/07 9:50pm Vital Signs Acute Vital Signs Vital Response Date/Time Temperature (Fahrenheit) 98.8 degrees F (97.6 - 99.5) 2016 10:39pm Temperature (Calculated Celsius) 37.03646 degrees C (36.4 - 37.5) 08/07/2017 10:39pm Temperature Source Temporal Artery Scan 08/07/2017 10:39pm Pulse Pulse Ox Pulse Rate (adult) 82 beats per minute (60 - 90) 08/07/20 10:39pm Pulse Location Modifier Left 08/07/2017 10 :39pm Oxygen Saturation Respiratory Rate 18 breaths per minute (12 - 24) 08/07/20 10:39pm O2 Sat by Pulse Oximetry 94 % (90 - 100) 08/07/2017 1 0:39pm Blood Pressure 130/69 mm Hg 08/07/2017 10:39pm Blood Pressure Mean 89 mm Hg 08/07/2017 10:39p m Height 6 ft 2 in 08/07/2017 10:11pm Weight 180 lb 08/07/2017 10:11pm Body Mass Index 23.1 kg/m^2 08/07/2017 10:11pm Results Laboratory Results Test Name Result Units Flags Reference Collection Date/Time Result Date/Time Comments White Blood Count 10.2 x10^3/uL 4.0-11.0 10/14/2016 6:14pm 6:36pm Red Blood Count 4.69 10^6/uL 4.50-6.50 10/14/2016 6:14pm 09/22 6:36pm Hematocrit 45.9 % 40.0-54.0 10/14/2016 6:14pm 6 6:36pm Mean Corpuscular Volume 98 fl H 76-96 10/14/2016 6:14p m 10/14/2016 6:36pm Mean Corpuscular Hemoglobin 35.4 pg *H 27.0-32.0 6:14pm 10/14/2016 6:36pm Mean Corpuscular Hemoglobin Concent 36.2 g/dl *H 31.0 -35.0 10/14/2016 6:14pm 10/14/2016 6:36pm Red Cell Distribution Width 12.6 % 11.0-16.0 6:14pm 10/14/2016 6:36pm Platelet Count 151 10^3/uL 150-400 10/14/2016 6:14pm 016 6:36pm Mean Platelet Volume 10.5 fl H 6.0-10.0 10/14/2016 6:14pm 10/14/2016 6:36pm Neutrophils (%) (Auto) 71.2 % H 45.0-70.0 10/14/2016 6:14 pm 10/14/2016 6:36pm Lymphocytes (%) (Auto) 22.0 % 20.0-40.0 10/14/2016 6:14 pm 10/14/2016 6:36pm Monocytes (%) (Auto) 5.9 % 3.0-10.0 10/14/2016 6:14pm 10/14/2016 6:36pm Eosinophils (%) (Auto) 0.7 % L 1.0-5.0 10/14/2016 6:14pm 10/14/2016 6:36pm Basophils (%) (Auto) 0.2 % 0.0-0.5 10/14/2016 6:14pm 1 12/15/2015 6:36pm Neutrophils # (Auto) 7.27 x10^3/uL 2.00-7.50 6 6:14pm 10/14/2016 6:36pm Lymphocytes # (Auto) 2.25 x10^3/uL 1.50-4.00 6 6:14pm 10/14/2016 6:36pm Monocytes # (Auto) 0.60 x10^3/uL 0.20-0.80 10/14/2016 6:14pm 10/14/2016 6:36pm Eosinophils # (Auto) 0.07 x10^3/uL 0.04-0.40 6 6:1410/14/2016 6:36pm Basophils # (Auto) 0.02 x10^3/uL 0.02-0.10 10/14/2016 6:14pm 10/14/2016 6:36pm Prothrombin Time 12.0 Seconds 11.1-13.9 10/14/2016 6:14pm 6:50pm Prothromb Time International Ratio 1.09 1.0-2 .0 10/14/2016 6:14pm 10/14/2016 6:50pm Volume Urine Centrifuged 12 ML ml 10/14/2016 6:14 pm 10/14/2016 7:16pm Test based ON 12 ml volume. Urine Color DARK YELLOW STRAW 10/14/2016 6:14pm 2015 7:16pm Urine Clarity CLEAR CLEAR 10/14/2016 6:14pm 10/14/20 16 7:16pm Urine Specific [place] 1.030 A 1.010-1.020 10/14 6:14pm 10/14/2016 7:16pm Urine pH 5.5 5.0-6.0 10/14/2016 6:14pm 10/14/2016 7: 16pm Urine Leukocyte Esterase NEGATIVE NEGATIVE 10/14 6:14pm 10/14/2016 7:16pm Urine Nitrite NEGATIVE NEGATIVE 10/14/2016 6:14pm 2015 7:16pm Urine Protein 100 NEGATIVE 10/14/2016 6:14pm 016 7:16pm Urine Glucose (UA) NEGATIVE NEGATIVE 10/14/2016 6:14pm 1 12/15/2015 7:16pm Urine Ketones NEGATIVE NEGATIVE 10/14/2016 6:14pm 2015 7:16pm Urine Urobilinogen 0.2 0.2-1.0 10/14/2016 6:14pm 7:16pm Urine Bilirubin NEGATIVE NEGATIVE 10/14/2016 6:14pm 09/22 7:16pm Urine Occult Blood TRACE A NEGATIVE 10/14/2016 6:14pm 7:16pm Urine WBC NONE #/HPF OCCASIONAL 10/14/2016 6:14pm 6 7:16pm Urine RBC NONE #/HPF OCCASIONAL 10/14/2016 6:14pm 6 7:16pm Urine Epithelial Cells NONE #/HPF OCCASIONAL 2015 6:14pm 10/14/2016 7:16pm Urine Other Casts NONE #/LPF NEGATIVE 10/14/2016 6:14pm 7:16pm Urine Bacteria NONE NONE 10/14/2016 6:14pm 016 7:16pm Urine Other Crystals NONE NONE 10/14/2016 6:14pm 1 12/15/2015 7:16pm Urine Mucus NONE NONE 10/14/2016 6:1410/14/2016 7:16pm Urine Culture Indicated NO NO 10/14/2016 6:14p m 10/14/2016 7:16pm Sodium Level 135 mmol/L L 137-145 10/14/2016 6:14pm 6 6:54pm Potassium Level 3.6 mmol/L 3.5-5.1 10/14/2016 6:142015 6:54pm Carbon Dioxide Level 23.8 mmol/L 22-10/14/2016 6:14pm 12/15/2015 6:54pm Anion Gap 19.8 mEq/L H 8-16 10/14/2016 6:1410/14/2016 6 :54pm Blood Urea Nitrogen 11 mg/dL -10/14/2016 6:14pm 6:54pm Creatinine 0.86 mg/dl 0.66-1.25 10/14/2016 6:14pm 6 6:54pm Est Glomerular Filtrat Rate mL/min > 90.00 10/14/2016 6:10/14/2016 6:53pm GFR NORMALS: Stage I: GFR >90 Stage II GFR 60-89 Stage III GFR 30-60 Stage IV: GFR 15-29 Stage V: GFR <15 BUN/Creatinine Ratio 12.79 10/14/2016 6:14pm 1 12/15/2015 6:54pm Glucose Level 167 mg/dL H 74-106 10/14/2016 6:14pm 10/14/20 16 6:54pm Calculated Osmolality 282.9 mosm/kg 273-304 10/14/20 16 6:14pm 10/14/2016 6:54pm Calcium Level 8.8 mg/dL 8.4-10.2 10/14/2016 6:14pm 016 6:54pm Total Bilirubin 1.0 mg/dL 0.2-1.3 10/14/2016 6:14pm 2015 6:54pm Aspartate Amino Transf (AST/SGOT) 46 U/L 17-59 10/14/2016 6:14pm 10/14/2016 6:54pm Alanine Aminotransferase (ALT/SGPT) 84 U/L H 21-7 2 10/14/2016 6:14pm 10/14/2016 6:54pm Alkaline Phosphatase 80 U/L 38-126 10/14/2016 6:14pm 1 12/15/2015 6:54pm Total Protein 7.9 g/dL 6.4-8.4 10/14/2016 6:14pm 10/14/20 16 6:54pm Albumin 3.7 g/dL 3.4-5.5 10/14/2016 6:14pm 10/14/2016 6:5 4pm Globulin 4.2 H 2.3-3.5 10/14/2016 6:14pm 10/14/2016 6: 54pm Albumin/Globulin Ratio 0.880 10/14/2016 6:14pm 10/14/2016 6:54pm Phencyclidine (PCP) Screen NEGATIVE NEGATIVE 6:14pm 10/14/2016 7:16pm Propoxyphene Screen NEGATIVE NEGATIVE 10/14/2016 6:14pm 10/14/2016 7:16pm Procedures Procedure Status Date Provider(s) ROUTINE VENIPUNCTURE Completed 10/14/16 CT HEAD/BRAIN W/O DYE Completed 10/14/16 COMPREHEN METABOLIC PANEL Completed 10/14/16 URINALYSIS NONAUTO W/SCOPE Completed 10/14/16 COMPLETE CBC W/AUTO DIFF WBC Completed 10/14/16 PROTHROMBIN TIME Completed 10/14/16 BLOOD CULTURE FOR BACTERIA Completed 10/14/16 ELECTROCARDIOGRAM TRACING Completed 10/14/16 EMERGENCY DEPT VISIT Completed 10/14/16 DRUG TEST PRESUMP OPTICAL Completed 10/14/16 DRUG TEST DEF 1-7 CLASSES Completed 10/14/16 INFUSION, NORMAL SALINE SOLUTION , 1000 CC Com pleted 10/14/16 EMERGENCY DEPT VISIT Completed 10/14/16 ELECTROCARDIOGRAM REPORT Completed 10/14/16 HYDRATION IV INFUSION INIT Completed 10/14/16 HYDRATE IV INFUSION ADD-ON Completed 10/14/16 Check Blood Sugar Active 10/14/16 REI MCKEON APRN Insertion of intravenous saline lock Active 10/14/16 KM MCKEON APRN Cardiac event monitoring Active 10/14/16 KM MCKEON APRN Insertion of intravenous saline lock Active 10/14/16 KM MCKEON APRN Computed tomography of head or brain without contrast Completed 10/14/16 KM MCKEON APRN 12-lead electrocardiogram Completed 10/14/16 KM MCKEON APRN X-ray of chest, PA and lateral views Completed 11/17/16 BRIANNE WALKER APRN Magnetic resonance imaging of brain without then with contra st Completed 11/21/16 GOKUL YEAGER MD Encounters Encounter Location Arrival/Admit Date Discharge/Depart Date Attending Provider Departed Emergency Room [facility] 08/07/17 9:50pm 08/07 10:47pm SHUBHAM WADDELL PA-C Registered Clinic [facility] 11/21/16 4:21pm GOKUL YEAGER MD Registered Clinic [facility] 11/17/16 11:19am BRIANNE WALKER APRN Departed Emergency Room [facility] 10/14/16 6:15pm 10/14 8:30pm KM MCKEON APRN Recent Diagnosis
[2020-02-15] MEDS ORDERED: ACETAMINOPHEN 500 MG TAB (TYLENOL) PO ONE (19:30)
[2020-02-15] MEDS ORDERED: OLANZapine 5 MG ODT (ZyPREXA ZYDIS) PO ONE (19:30)
--- OUTSIDE RECORDS SUMMARY | 2020-02-15 19:30 | XMS REPORT ---
Author Author Christiano Case Organization [employer] Address Unknown Phone Unavailable Care Team Providers Care Financial Accounting Manager Name Role Phone Severino Case CP Unavailable Allergies No Known Allergies Problems Problem Type Condition Code Onset Dates Condition Statu s Problem Low back pain M54.5 Active Problem Essential (primary) hypertension I10 Active Problem Type 2 diabetes mellitus with other specified complica tion E11.69 Active Medications Medication Code System Code Instructions Start Date End Date Status Dosage Hydrocodone-Acetaminophen [facility] [address]-71 5-325 MG Orally q.i. d. for pain 1 tablet as needed Results No Known Results Summary Purpose [employer] Submission
--- OUTSIDE RECORDS SUMMARY | 2020-02-15 19:30 | XMS REPORT ---
Author Christaino Ortiz Organization [employer] Address Unknown Phone Unavailable Care Team Providers Care Physical Therapy Nurse Name Role Phone Raleigh Nuno CP Unavailable [...] Status Dosage Hydrocodone-Acetaminophen [facility] [id number] 5-325 MG Orally q.i. d. for pain Active 1 tablet as needed Results No Known Results Summary Purpose [employer] Submission
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
--- OUTSIDE RECORDS SUMMARY | 2020-02-15 19:30 | XMS REPORT ---
Author Author Christiano Case Organization Severino Case MD Address [address] [place] [address] Care Team Providers Care Emt I/99 Name Role Phone Severino Case Unavailable PROBLEMS Type Condition ICD9-CM Code [id number] Code Onset Dates Condition S tatus SNOMED Code Problem Type 2 diabetes mellitus with other specified complication E11.69 Active 08424402250915 Problem Low back pain M54.5 Active 483521 007 Problem Essential (primary) hypertension I10 Active 43128129 ALLERGIES Unknown Allergies SOCIAL HISTORY No smoking Hx information available PLAN OF CARE VITAL SIGNS MEDICATIONS Medication Instructions Dosage Frequency Start Date End Date Duration S tatus Gabapentin 800 MG take 1 tablet by mouth three times a day 31 Active RESULTS No Results PROCEDURES No Known procedures IMMUNIZATIONS No Known Immunizations
--- OUTSIDE RECORDS SUMMARY | 2020-02-15 19:30 | XMS REPORT ---
Author Christiano Ortiz Organization [employer] Address Unknown Phone Unavailable Care Team Providers Care Logistics Project Manager Name Role Phone Raleigh Nuno CP Unavailable [...] Start Date End Date Status Dosage Hydrocodone-Acetaminophen [facility] [address]-70 5-325 MG Orally q.i. d. for pain 1 tablet as needed Results No Known Results Summary Purpose [employer] Submission
--- OUTSIDE RECORDS SUMMARY | 2020-02-15 19:30 | XMS REPORT ---
Author Christiano Ortiz Organization [employer] Address Unknown Phone Unavailable Care Team Providers Care Aerodynamics Teacher Name Role Phone Raleigh Nuno CP Unavailable Allergies No Known Allergies Problems Problem Type Condition Code Onset Dates Condition Statu s Problem Low back pain M54.5 Active Problem Essential (primary) hypertension I10 Active Problem Type 2 diabetes mellitus with other specified complica tion E11.69 Active Assessment Lumbago 724.2 Active Medications Medication Code System Code Instructions Start Date End Date Status Dosage Hydrocodone-Acetaminophen [facility] [address]-72 5-325 MG Orally q.i. d. for pain 1 tablet as needed Results No Known Results Summary Purpose [employer] Submission
--- OUTSIDE RECORDS SUMMARY | 2020-02-15 19:30 | XMS REPORT ---
Author Christiano Ortiz [facility] [employer] Address Unknown Phone Unavailable Care Team Providers Care Disability Insurance Hearing Officer Name Role Phone Raleigh Nuno CP Unavailable Allergies, Adverse Reactions, Alerts Substance Reaction Event Type N.K.D.A. Info Not Available Non Drug Allergy Problems Problem Type Condition Code Onset Dates Condition Statu s Problem Low back pain M54.5 Active Problem Essential (primary) hypertension I10 Active Problem Type 2 diabetes mellitus with other specified complica tion E11.69 Active Assessment Low back pain M54.5 Active Medications Medication Code System Code Instructions Start Date End Date Status Dosage Gabapentin [facility] 40907532096 600 MG TAKE 1 T ABLET BY MOUTH THREE TIMES A DAY [facility] Contour Test ND 0 In Vitro Sep 25, 2014 as directed Insulin Syringe [facility] 8271-962556 31G X 5/16 dx code 250.80 once a day December 23, 2013 as directed Lisinopril-Hydrochlorothiazide [facility] 40388369471 20-12.5 MG TAKE 1 TABLET BY MOUTH EVERY DAY FOR BLOOD PRESSURE Lantus SoloStar [facility] [address]-55 100 UNIT/ML Subcutaneous once a day February 22, 2015 30 units Metformin HCl [facility] 09609445748 1000 MG TAKE 1 TABLET BY MOUTH TWICE DAILY Lantus [facility] [address]-61 100 UNIT/ML Subcutaneous Once a day February 30 units Lancet Device [facility] [address] . dx code 250.80 once a day December 23, 2013 as directed Cymbalta [facility] [address]-68 20 MG Orally Twice a day 1 capsule Hydrocodone-Acetaminophen [facility] [address]-20 5-325 MG Orally q.i. d. for pain 1 tablet as needed Phenazopyridine HCl [facility] [address]-25 200 MG Orally Three times a day February 16, 2016 1 tablet prn bladder pain Lovastatin [facility] 75297682914 20 MG TAKE 1 TA BLET BY MOUTH EVERY DAY Zyprexa [facility] [address]-25 20 MG Orally Once a day 1 tablet Lorazepam [facility] [address]-33 2 MG Orally Three times a day 1 tablet Contour Blood Glucose System [facility] [address]-37 * March 18, 2013 as directed Procedures Procedure Coding System Code Date Office Visit, Ruddy Pt., Level 3 CPT-4 20[address] [facility] 2015 Vital Signs Date/Time: May 19, 2016 BMI 26.07 Index Weight 199 lbs Height 73.25 in Oximetry 99 % Cardiac Monitoring Heart Rate 72 /min Blood Pressure Diastolic 78 mm Hg Blood Pressure Systolic 128 mm Hg Respiratory Rate 20 /min Results No Known Results Summary Purpose [employer] Submission
--- OUTSIDE RECORDS SUMMARY | 2020-02-15 19:30 | XMS REPORT ---
Author Author Christiano Case Organization Severino Case MD Address [address] [place] [address] Care Team Providers Care Sales Development Associate Name Role Phone Severino Case Unavailable PROBLEMS Type Condition ICD9-CM Code [id number] Code Onset Dates Condition S tatus SNOMED Code Problem Schizophrenia, unspecified F20.9 Act taina 12222302 Problem Personal history of tobacco use, presenting hazards to health V15.82 Active 4675388593030 Problem Essential (primary) hypertension I10 Active 16585323 Problem Type 2 diabetes mellitus with other specified complication E11.69 Active 37720438871254 Problem Low back pain M54.5 Active 973163 007 ALLERGIES Unknown Allergies SOCIAL HISTORY No smoking Hx information available PLAN OF CARE VITAL SIGNS MEDICATIONS Medication Instructions Dosage Frequency Start Date End Date Duration S tatus Hydrocodone-Acetaminophen 5-325 MG Orally q.i.d. for pain 1 tablet as needed 30 days Active RESULTS No Results PROCEDURES No Known procedures IMMUNIZATIONS No Known Immunizations
--- OUTSIDE RECORDS SUMMARY | 2020-02-15 19:30 | XMS REPORT ---
Author Author Christiano Case Organization [employer] Address Unknown Phone Unavailable Care Team Providers Care Hand Woven Carpet And Rug Mender Name Role Phone Severino Case CP Unavailable Allergies, Adverse Reactions, Alerts Substance Reaction Event Type N.K.D.A. Info Not Available Non Drug Allergy Problems Problem Type Condition Code Onset Dates Condition Statu s Problem Low back pain M54.5 Active Problem Essential (primary) hypertension I10 Active Problem Type 2 diabetes mellitus with other specified complica tion E11.69 Active Assessment Abnormal weight loss R63.4 Active Assessment Type 2 diabetes mellitus with other specified complica tion E11.69 Active Assessment Essential (primary) hypertension I10 Active Medications Medication Code System Code Instructions Start Date End Date Status Dosage Insulin Syringe [facility] 8271-211587 31G X /16 dx code 250.80 once a day December 23, 2013 as directed Lantus [facility] [address]-86 100 UNIT/ML Subcutaneous Once a day February 30 units Metformin HCl [facility] 96255603627 1000 MG TAKE 1 TABLET BY MOUTH TWICE DAILY Contour Blood Glucose System [facility] [address]-58 * March 18, 2013 as directed Ascensia Contour Test [facility] 0 In Vitro Sep 25, 2014 as directed Gabapentin [facility] [address]-96 800 MG Orally take 1 tablet by mouth three times a day Lovastatin [facility] 27789116961 20 MG TAKE 1 TA BLET BY MOUTH EVERY DAY Phenazopyridine HCl [facility] [address]-45 200 MG Orally Three times a day February 16, 2016 1 tablet prn bladder pain Zyprexa [facility] [address]-25 20 MG Orally Once a day 1 tablet Cymbalta [facility] [address]-86 20 MG Orally Twice a day 1 capsule Lisinopril-Hydrochlorothiazide [facility] 39061811440 20-12.5 MG TAKE 1 TABLET BY MOUTH EVERY DAY FOR BLOOD PRESSURE Lancet Device [facility] 98[address]-92392 . dx code 250.80 once a day December 23, 2013 as directed Lorazepam [facility] [address]-30 2 MG Orally Three times a day 1 tablet Hydrocodone-Acetaminophen [facility] [address]-90 5-325 MG Orally q.i. d. for pain 1 tablet as needed Procedures Procedure Coding System Code Date Office Visit, Est Pt., Level 3 CPT-4 08635 S ept 2015 Vital Signs Date/Time: Jul 12, 2016 BMI 25.68 Index Weight 196 lbs Height 73.25 in Oximetry 96 % Cardiac Monitoring Heart Rate 86 /min Results No Known Results Summary Purpose [employer] Submission
--- OUTSIDE RECORDS SUMMARY | 2020-02-15 19:30 | XMS REPORT ---
Author Christiano Ortiz Organization [employer] Address Unknown Phone Unavailable Care Team Providers Care Tradeshow Worker Name Role Phone Raleigh Nuno CP Unavailable [...] Dosage Hydrocodone-Acetaminophen [facility] [address]-27 5-325 MG Orally q.i. d. for pain 1 tablet as needed Results No Known Results Summary Purpose [employer] Submission
--- OUTSIDE RECORDS SUMMARY | 2020-02-15 19:30 | XMS REPORT ---
Author Author Christiano Case Organization [employer] Address Unknown Phone Unavailable Care Team Providers Care Lathe Operator Name Role Phone Severino Case CP Unavailable Allergies No Known Allergies Problems Problem Type Condition Code Onset Dates Condition Statu s Problem Low back pain M54.5 Active Problem Essential (primary) hypertension I10 Active Problem Type 2 diabetes mellitus with other specified complica tion E11.69 Active Medications Medication Code System Code Instructions Start Date End Date Status Dosage Uniqueantwanrob [facility] [address]-56 236 GM Orally starte the day befo re Jul 19, 2016 Jul 25, 2016 as directed Results No Known Results Summary Purpose [employer] Submission
--- OUTSIDE RECORDS SUMMARY | 2020-02-15 19:30 | XMS REPORT ---
Author Christiano Ortiz Organization [employer] Address Unknown Phone Unavailable Care Team Providers Care Geospatial Specialist Name Role Phone Raleigh Nuno CP Unavailable [...] Start Date End Date Status Dosage Hydrocodone-Acetaminophen [facility] [address]-92 5-325 MG Orally q.i. d. for pain 1 tablet as needed Results No Known Results Summary Purpose [employer] Submission
--- OUTSIDE RECORDS SUMMARY | 2020-02-15 19:30 | XMS REPORT ---
Author Author Christiano Case Organization [employer] Address Unknown Phone Unavailable Care Team Providers Care Lathe Scalper Operator Name Role Phone Severino Case CP Unavailable Allergies No Known Allergies Problems Problem Type Condition Code Onset Dates Condition Statu s Problem Low back pain M54.5 Active Problem Essential (primary) hypertension I10 Active Problem Type 2 diabetes mellitus with other specified complica tion E11.69 Active Assessment Type 2 diabetes mellitus with other specified complica tion E11.69 Active Medications Medication Code System Code Instructions Start Date End Date Status Dosage Cymbalta [facility] [address]-14 20 MG Orally Twice a day 1 capsule Gabapentin [facility] [address]-36 800 MG Orally take 1 tablet by mouth three times a day Results No Known Results Summary Purpose [employer] Submission
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
--- OUTSIDE RECORDS SUMMARY | 2020-02-15 19:30 | XMS REPORT ---
Author Author Christiano Case Organization [employer] Address Unknown Phone Unavailable Care Team Providers Care [employer] Pilot Name Role Phone Severino Case CP Unavailable [...]
--- OUTSIDE RECORDS SUMMARY | 2020-02-15 19:30 | XMS REPORT ---
Author Author Christiano Nuno Organization [employer] Address Unknown Phone Unavailable Care Team Providers Care Program Officer Name Role Phone Raleigh Nuno CP Unavailable Allergies No Known Allergies Problems Problem Type Condition Code Onset Dates Condition Statu s Problem Low back pain M54.5 Active Problem Essential (primary) hypertension I10 Active Problem Type 2 diabetes mellitus with other specified complica tion E11.69 Active Medications Medication Code System Code Instructions Start Date End Date Status Dosage Hydrocodone-Acetaminophen [facility] [address]-22 5-325 MG Orally q.i. d. for pain 1 tablet as needed Results No Known Results Summary Purpose [employer] Submission
--- OUTSIDE RECORDS SUMMARY | 2020-02-15 19:30 | XMS REPORT ---
Author Christiano Mccauley Organization [employer] Address Unknown Phone Unavailable Care Team Providers Care Can Slider Name Role Phone Severino Case CP Unavailable [...] Instructions Start Date End Date Status Dosage Lisinopril [facility] [address]-83 20 MG Orally Once a day 1 tablet Hydrocodone-Acetaminophen [facility] [address]-41 5-325 MG Orally q.i. d. for pain 1 tablet as needed [facility] Contour Test ND 0 In Vitro Sep 25, 2014 as directed Lancet Device [facility] [address]80 . dx code 250.80 once a day December 23, 2013 as directed Gabapentin [facility] [address]-28 600 MG Orally Three times a day Jun 07, 2015 1 tablet Lantus SoloStar [facility] [address]-04 100 UNIT/ML Subcutaneous once a day February 22, 2015 30 units Lisinopril-Hydrochlorothiazide [facility] 78414865040 20-12.5 MG TAKE 1 TABLET BY MOUTH EVERY DAY FOR BLOOD PRESSURE Lovastatin [facility] 36017537005 20 MG TAKE 1 TA BLET BY MOUTH EVERY DAY Insulin Syringe [facility] 8271-731964 31G X 5/16 dx code 250.80 once a day December 23, 2013 as directed Cymbalta [facility] [address]-42 20 MG Orally Twice a day 1 capsule Lorazepam [facility] [address]-69 2 MG Orally Three times a day 1 tablet Metformin HCl [facility] 22206756432 1000 MG TAKE 1 TABLET BY MOUTH TWICE DAILY Neurontin [facility] [address]-06 300 MG TAKE 1 CAPSULE BY MOUTH TWICE DAILY Lantus [facility] [address]-55 100 UNIT/ML Subcutaneous Once a day February 30 units Zyprexa [facility] [address]-69 20 MG Orally Once a day 1 tablet LiveAction Blood Glucose System [facility] [address]-78 * March 18, 2013 as directed Vital Signs Date/Time: Sep 21, 2015 Blood Pressure Systolic 148 mm Hg Weight 00 lbs Height 73 in Blood Pressure Diastolic 88 mm Hg Results No Known Results Summary Purpose [employer] Submission
--- OUTSIDE RECORDS SUMMARY | 2020-02-15 19:30 | XMS REPORT ---
Author Author Christiano Case Organization [employer] Address Unknown Phone Unavailable Care Team Providers Care Online Facilitator Name Role Phone Severino Case CP Unavailable [...]
--- OUTSIDE RECORDS SUMMARY | 2020-02-15 19:31 | XMS REPORT ---
Author Christiano Ortiz Organization [employer] Address Unknown Phone Unavailable Care Team Providers Care Batching Operator Name Role Phone Raleigh Nuno CP Unavailable Allergies No Known Allergies Problems Problem Type Condition Code Onset Dates Condition Statu s Problem Low back pain M54.5 Active Problem Essential (primary) hypertension I10 Active Problem Type 2 diabetes mellitus with other specified complica tion E11.69 Active Assessment Lumbago 724.2 Active Medications Medication Code System Code Instructions Start Date End Date Status Dosage Hydrocodone-Acetaminophen [facility] [address]-06 5-325 MG Orally q.i. d. for pain 1 tablet as needed Results No Known Results Summary Purpose [employer] Submission
--- OUTSIDE RECORDS SUMMARY | 2020-02-15 19:31 | XMS REPORT ---
Author Author Christiano Case Organization [employer] Address Unknown Phone Unavailable Care Team Providers Care Wet Press Tender Name Role Phone Severino Case CP Unavailable Allergies No Known Allergies Problems Problem Type Condition Code Onset Dates Condition Statu s Problem Low back pain M54.5 Active Problem Essential (primary) hypertension I10 Active Problem Type 2 diabetes mellitus with other specified complica tion E11.69 Active Medications Medication Code System Code Instructions Start Date End Date Status Dosage Hydrocodone-Acetaminophen [facility] [address]-95 5-325 MG Orally q.i. d. for pain 1 tablet as needed Results No Known Results Summary Purpose [employer]Works Submission
--- NOTE | 2020-02-15 19:35 | NUR ---
JENNIFER WHITE AT BEDSIDE SITTER D/T PT VERY CONFUSED AND MX ATTEMPTS TO GET OUT OF BED AND PT IS VERY UNSTEADY ON HIS FEET.
--- NOTE | 2020-02-15 19:36 | ED General ---
General Stated Complaint: CONFUSION Source of Information: Patient Exam Limitations: No Limitations History of Present Illness Date Seen by Provider: Feb 15, 2020 Time Seen by Provider: 19:15 Initial Comments Patient presents to ER by EMS from [facility] [address] with chief complaint of increasing confusion and fever. He's had no cough nor was he given any antipyretics. He has normal oxygen sats per EMS staff. He had good blood pressure and a pulse of 115. Patient states he needs to urinate. He has a history of schizoaffective bipolar disorder as well as diabetes on metformin. Blood sugar was 150 per EMS. The patient denies any pain shortness of breath abdominal pain or abdominal surgeries. Case with the nurse from [facility] and she says that his temperature has been running 97-98 week until today it was 99.9 which they considered a low-grade fever. Allergies and Home Medications Allergies Coded Allergies: No Known Drug Allergies (Unverified , 02/15/20) Patient Home Medication List Home Medication List Reviewed: Yes Review of Systems Review of Systems Constitutional: No chills; fever, malaise EENTM: No ear discharge, No ear pain Respiratory: No cough, No phlegm, No short of breath Cardiovascular: No chest pain, No edema, No Hx of Intervention, No palpitations Gastrointestinal: No abdominal pain, No constipation, No diarrhea, No nausea Genitourinary: No discharge, No dysuria; frequency Musculoskeletal: No back pain, No joint pain Skin: No pruritus, No rash Psychiatric/Neurological: Denies Headache, Denies Numbness All Other Systems Reviewed Negative Unless Noted: Yes Past [id number]-Asfvuy-Pxndrf Hx Patient Social History Alcohol Use: Denies Use Recreational Drug Use: No Smoking Status: Never a Smoker Physical Exam-Suspected Sepsis Physical Exam Vital Signs Vital Signs - First Documented 02/15/20 02/15/20 19:17 20:10 Temp 37.6 Pulse 98 Resp 20 B/P (MAP) 155/79 (104) Pulse Ox 98 O2 Delivery Room Air Capillary Refill : Height, Weight, BMI Height: '" Weight: lbs. oz. kg; BMI Method: General Appearance: WD/WN, Mild Distress Eyes: Bilateral Eye Normal Inspection, Bilateral Eye PERRL, Bilateral Eye EOMI HEENT: PERRL/EOMI, TMs Normal, Normal ENT Inspection, Pharynx Normal; No Moist Mucous Membranes Neck: Full Range of Motion, Normal Inspection Respiratory: Lungs Clear, Normal Breath Sounds, No Accessory Muscle Use, No Respiratory Distress Cardiovascular: Regular Rate, Rhythm, No Edema, No Murmur, Normal Peripheral Pulses, Tachycardia Gastrointestinal: Normal Bowel Sounds, Non Tender, Soft Extremity: Normal Capillary Refill, Normal Inspection, Non Tender Neurologic/Psychiatric: Alert, Other (oriented to person and place but not time. Attempting to get up and walk around, easily redirectable but continues to try and get up and wander) Skin: normal color, warm/dry Focused Exam Lactate Level 02/15/20 19:35: Lactic Acid Level 4.11*H 02/15/20 21:46: Lactic Acid Level 1.58 Lactic Acid Level Laboratory Tests Test 02/15/20 19:35 02/15/20 21:46 Lactic Acid Level 4.11 MMOL/L (0.50-2.00) *H 1.58 MMOL/L (0.50-2.00) Progress/Results/Core Measures Suspected Sepsis SIRS Temperature: Pulse: Respiratory Rate: Laboratory Tests 02/15/20 19:35: White Blood Count 13.7H Blood Pressure / Mean: 02/15/20 19:35: Lactic Acid Level 4.11*H 02/15/20 21:46: Lactic Acid Level 1.58 Laboratory Tests 02/15/20 19:35: Creatinine 0.77, INR Comment 1.1, Platelet Count 171, Total Bilirubin 1.0 Results/Orders Lab Results Laboratory Tests Test 02/15/20 19:35 02/15/20 21:46 Range/Units White Blood Count 13.7 H 4.3-11.0 10^3/uL Red Blood Count 4.04 L 4.35-5.85 10^6/uL Hemoglobin 13.5 13.3-17.7 G/DL Hematocrit 36 L 40-54 % Mean Corpuscular Volume 90 80-99 FL Mean Corpuscular Hemoglobin 33 25-34 PG Mean Corpuscular Hemoglobin Concent 37 H 32-36 G/DL Red Cell Distribution Width 12.1 10.0-14.5 % Platelet Count 171 130-400 10^3/uL Mean Platelet Volume 10.3 7.4-10.4 FL Neutrophils (%) (Auto) 88 H 42-75 % Lymphocytes (%) (Auto) 6 L 12-44 % Monocytes (%) (Auto) 6 0-12 % Eosinophils (%) (Auto) 0 0-10 % Basophils (%) (Auto) 0 0-10 % Neutrophils # (Auto) 12.1 H 1.8-7.8 X 10^3 Lymphocytes # (Auto) 0.8 L 1.0-4.0 X 10^3 Monocytes # (Auto) 0.8 0.0-1.0 X 10^3 Eosinophils # (Auto) 0.0 0.0-0.3 10^3/uL Basophils # (Auto) 0.0 0.0-0.1 10^3/uL Neutrophils % (Manual) 90 % Lymphocytes % (Manual) 4 % Monocytes % (Manual) 6 % Spherocytes MODERATE Prothrombin Time 14.3 12.2-14.7 SEC INR Comment 1.1 0.8-1.4 Activated Partial Thromboplast Time 30 24-35 SEC Urine Color YELLOW Urine Clarity CLEAR Urine pH 6.0 5-9 Urine Specific Kimball <=1.005 1.016-1.022 Urine Protein NEGATIVE NEGATIVE Urine Glucose (UA) 3+ H NEGATIVE Urine Ketones NEGATIVE NEGATIVE Urine Nitrite NEGATIVE NEGATIVE Urine Bilirubin NEGATIVE NEGATIVE Urine Urobilinogen 1.0 < = 1.0 MG/DL Urine Leukocyte Esterase NEGATIVE NEGATIVE Urine RBC (Auto) NEGATIVE NEGATIVE Urine RBC 0-2 /HPF Urine WBC RARE /HPF Urine Squamous Epithelial Cells NONE /HPF Urine Crystals NONE /LPF Urine Bacteria NEGATIVE /HPF Urine Casts NONE /LPF Urine Mucus NEGATIVE /LPF Urine Culture Indicated NO Sodium Level 131 L 135-145 MMOL/L Potassium Level 3.8 3.6-5.0 MMOL/L Chloride Level 97 L 98-107 MMOL/L Carbon Dioxide Level 18 L 21-32 MMOL/L Anion Gap 16 H 5-14 MMOL/L Blood Urea Nitrogen 11 7-18 MG/DL Creatinine 0.77 0.60-1.30 MG/DL Estimat Glomerular Filtration Rate > 60 BUN/Creatinine Ratio 14 Glucose Level 165 H 70-105 MG/DL Lactic Acid Level 4.11 *H 1.58 0.50-2.00 MMOL/L Calcium Level 8.6 8.5-10.1 MG/DL Corrected Calcium 8.7 8.5-10.1 MG/DL Total Bilirubin 1.0 0.1-1.0 MG/DL Aspartate Amino Transf (AST/SGOT) 31 5-34 U/L Alanine Aminotransferase (ALT/SGPT) 41 0-55 U/L Alkaline Phosphatase 61 40-136 U/L Total Protein 6.6 6.4-8.2 GM/DL Albumin 3.9 3.2-4.5 GM/DL Micro Results Microbiology 02/15/20 Influenza Types A,B Antigen (MELISSA) - Final, Complete My Orders Orders - TOBI,MIYA J Cbc With Automated Diff (02/15/20 19:24) Comprehensive Metabolic Panel (02/15/20 19:24) Blood Culture (02/15/20 19:24) Sputum Culture (02/15/20 19:24) Urinalysis (02/15/20:24) Urine Culture (02/15/20:24) Protime With Inr (02/15/20:) Partial Thromboplastin Time (02/15/20:24) Chest 1 View, Ap/Pa Only (02/15/20 19:24) Ed Iv/Invasive Line Start (02/15/20 19:24) Ed Iv/Invasive Line Start (02/15/20 19:24) Vital Signs Adult Sepsis Patie Q15M (02/15/20 19:24) O2 (02/15/20 19:24) Remove Rings In Anticipation O (02/15/20:24) Lactic Acid Analyzer (02/15/20 19:24) Ed Iv/Invasive Line Start (02/15/20 19:24) Ed Iv/Invasive Line Start (02/15/20 19:29) Ns Iv 1000 Ml (Sodium Chloride 0.9%) (02/15/20 19:29) Ns Iv 1000 Ml (Sodium Chloride 0.9%) (02/15/20 19:29) Olanzapine Orally Dissolve Tab (Zyprexa (02/15/20 19:30) Acetaminophen Tablet (Tylenol Tablet) (02/15/20 19:30) Influenza A And B Antigens (02/15/20 19:56) Manual Differential (02/15/20 19:35) Ed Iv/Invasive Line Start (02/15/20 20:22) Ns Iv 1000 Ml (Sodium Chloride 0.9%) (02/15/20 20:22) Ct Abdomen/Pelvis W (02/15/20 20:22) Iohexol Injection (Omnipaque 350 Mg/Ml 1 (02/15/20 21:00) Received Contrast (Hold Metformin- Contr (02/15/20 21:00) Sodium Chloride Flush (Catheter Flush Sy (02/15/20 21:00) Ns (Ivpb) (Sodium Chloride 0.9% Ivpb Bag (02/15/20 21:00) Medications Given in ED Current Medications Medications Dose Ordered Sig/Una Route Start Time Stop Time Status Last Admin Dose Admin Acetaminophen 1,000 mg ONCE ONCE PO 02/15/20 19:30 02/15/20 19:31 DC 02/15/20 19:54 1,000 MG Iohexol 100 ml ONCE ONCE IV 02/15/20 21:00 02/15/20 21:01 DC 02/15/20 21:03 100 ML Olanzapine 5 mg ONCE ONCE PO 02/15/20 19:30 02/15/20 19:31 DC 02/15/20 19:50 5 MG Sodium Chloride 10 ml NEEDED PRN IV 02/15/20 21:00 02/15/20 21:03 10 ML Sodium Chloride 100 ml ONCE ONCE IV 02/15/20 21:00 02/15/20 21:01 DC 02/15/20 21:03 80 ML Sodium Chloride 1,000 ml @ 0 mls/hr Q0M ONCE IV 02/15/20 19:29 02/15/20 20:00 DC 02/15/20 19:50 999 MLS/HR Vital Signs/I&O 02/15/20 02/15/20 02/15/20 02/15/20 19:17 19:54 20:10 20:20 Temp 37.6 37.6 37.2 Pulse 98 87 98 Resp 20 14 14 B/P (MAP) 155/79 (104) 157/73 (101) 145/66 Pulse Ox 98 98 O2 Delivery Room Air Room Air Room Air 02/15/20 02/15/20 02/15/20 02/15/20 20:24 20:32 21:19 21:33 Temp 37.3 Pulse 92 92 85 78 Resp 16 17 19 19 B/P (MAP) 159/67 (97) 152/69 (96) 136/68 (90) 153/81 (105) Pulse Ox 96 95 97 96 O2 Delivery Room Air Room Air Room Air Room Air 4/02/15/20 02/15/20 02/15/20 21:48 22:02 22:16 22:32 Pulse 76 68 63 61 Resp 20 22 21 20 B/P (MAP) 141/68 (92) 135/68 (90) 137/68 (91) 135/66 (89) Pulse Ox 96 98 98 98 O2 Delivery Room Air Room Air Room Air Room Air Capillary Refill : Progress Note #1: Time: 19:36 Progress Note Septic workup, suspect bladder infection. We'll get a dose of Rocephin on board after blood cultures. For his wandering behaviors were going to give him a little extra dose of Zyprexa 5 mg oral dissolving tablet. Progress Note #2: Time: 20:24 Progress Note Patient's urine is unremarkable. He has a fever and significantly elevated lactic acid. We've given 2 L or any give a third liter to give him over 30 mL/kg. His tachycardia is mildly improved. Zyprexa and a sitter have been very helpful with redirecting him. Plan to get a CT of his abdomen and pelvis. Looking for source of infection. After discussing the case with the nurse from [facility] a doesn't sound like the patient had a true fever and we have not detected a fever nor has EMS. Suspect that his lactic acidosis represents just dehydration. Diagnostic Imaging Diagonstic Imaging: Xray Plain Films/CT/US/NM/MRI: chest (1v) Comments Unremarkable one view chest x-ray. [facility] [place] NAME: MARIA INES ROSSI [facility] REC#: [id number] PT STATUS: REG ER : 1955 PHYSICIAN: MIYA BRITTON MD ADMIT DATE: 02/15/20/ER Draft Date of Exam:02/15/20 CHEST 1 VIEW, AP/PA ONLY INDICATION: Altered mental status. COMPARISON: None. EXAMINATION: Single frontal view of the chest was obtained. FINDINGS: Normal heart size and pulmonary vascularity. The lungs are well aerated and clear. No large pleural effusion or pneumothorax is seen. The visualized osseous structures show no acute abnormality. IMPRESSION: No acute cardiopulmonary process. Dictated on workstation # [id number] Dict: 02/15/202030 Trans: 02/15/202039 [facility] [phone] Interpreted by: MIN WEBER MD Electronically signed by: Reviewed: Reviewed by Me Diagonstic Imaging: CT (with IV contrast) Plain Films/CT/US/NM/MRI: abdomen, pelvis Comments NAME: MARIA INES ROSSI [facility] REC#: [id number] PT STATUS: REG ER : 1955 PHYSICIAN: MIYA BRITTON MD ADMIT DATE: 02/15/20/ER Draft Date of Exam:02/15/20 CT ABDOMEN/PELVIS W PROCEDURE: CT abdomen and pelvis with contrast. TECHNIQUE: Multiple contiguous axial images were obtained through the abdomen and pelvis after administration of intravenous contrast. Auto Exposure Controls were utilized during the CT exam to meet ALARA standards for radiation dose reduction. INDICATION: Increased confusion and fever. COMPARISON: None. FINDINGS: Included portions of the lung bases show pleural-based masslike density within the posterior left lower lobe that measures 1.2 x 2.6 cm (image 1, series 2). CT abdomen: Large amount of air and stool is noted within the colon and rectum. Stool ball measures 8.7 x 9.5 cm in axial dimension. Normal appendix cannot be adequately identified, but there is no pericecal inflammation. Small bowel loops are nondistended. Kidneys, adrenal glands, spleen, pancreas and liver have a normal CT appearance. There is no loculated fluid collection, free fluid or free air within the abdomen. No abnormal mesenteric or retroperitoneal adenopathy is seen. Note is made of moderate calcified aortic, arterial and coronary atherosclerosis. Osseous structures show no acute abnormality. CT pelvis: Urinary bladder is unopacified. No calculi are seen within the urinary bladder. There is no loculated fluid collection, free fluid or free air within the pelvis. No abnormal adenopathy is seen. Osseous structures show no acute abnormality. IMPRESSION: 1. Large amount of rectal and colonic air and stool. Please correlate for underlying impaction/constipation. 2. Partially visualized pleural-based nodular masslike density within the posterior left lower lobe. Complete characterization with dedicated CT of the chest is recommended and could be performed on a nonemergent basis. 3. Moderate calcified aortic, coronary and arterial atherosclerosis. Dictated on workstation # [id number] Dict: 02/15/202108 Trans: 02/15/202117 [facility] [phone] Interpreted by: MIN WEBER MD Electronically signed by: Reviewed: Reviewed [place] Study, Reviewed by Me Departure Communication (Admissions) Time/Spoke to Admitting Phy: 22:10 Discussed the case with Dr. Eden and he agrees to observe the patient for some IV fluids and repeat labs in the morning. Impression Primary Impression: Dehydration Additional Impressions: Impaction of colon Lactic acidosis Disposition: ADMITTED INPATIENT Condition: Stable Admissions Decision to Admit Reason: Admit from ER (General) Decision to Admit/Date: Feb 15, 2020 Time/Decision to Admit Time: 22:17 Departure-Patient Inst. Referrals: NO,LOCAL PHYSICIAN (PCP) Primary Care Physician MIYA BRITTON Feb 15, 2020 19:36
[2020-02-15] MEDS: NS IV 1000 ML 1,000 ML IV SCH ×2 (19:57→20:42)
[2020-02-15 20:01] LABS: BILIRUBIN,URINE NEGATIVE (NEGATIVE); CLARITY,URINE CLEAR; COLOR,URINE YELLOW; GLUCOSE, URINE (UA) 3+ (NEGATIVE); KETONES,URINE NEGATIVE (NEGATIVE); LEUKOCYTE ESTERASE ,URINE NEGATIVE (NEGATIVE); NITRITE,URINE NEGATIVE (NEGATIVE); PROTEIN,URINE NEGATIVE (NEGATIVE)
[2020-02-15 20:04] LABS: BASOPHILS % (AUTO) 0 % (0-10); EOSINOPHILS % (AUTO) 0 % (0-10); HEMATOCRIT 36 % (40-54); HEMOGLOBIN 13.5 G/DL (13.3-17.7); LYMPHOCYTES # (AUTO) 0.8 X 10^3 (1.0-4.0); LYMPHOCYTES % (AUTO) 6 % (12-44); MEAN CORPUSCULAR HEMOGLOBIN 33 PG (25-34); MEAN CORPUSCULAR HGB CONC 37 G/DL (32-36); MEAN CORPUSCULAR VOLUME 90 FL (80-99); MEAN PLATELET VOLUME 10.3 FL (7.4-10.4); MONOCYTES # (AUTO) 0.8 X 10^3 (0.0-1.0); MONOCYTES % (AUTO) 6 % (0-12); NEUTROPHILS # (AUTO) 12.1 X 10^3 (1.8-7.8); NEUTROPHILS % (AUTO) 88 % (42-75); PLATELET COUNT 171 10^3/uL (130-400); RED CELL DISTRIBUTION WIDTH 12.1 % (10.0-14.5); WHITE BLOOD COUNT 13.7 10^3/uL (4.3-11.0)
[2020-02-15 20:10] LABS: BACTERIA,URINE NEGATIVE /HPF; RBC,URINE 0-2 /HPF; WBC,URINE RARE /HPF
--- NOTE | 2020-02-15 20:12 | NUR ---
2005-1ST LITER OF NS STARTED BY EMS COMPLETE AT THIS TIME. 2012-2ND LITER OF NS STARTED IN ED COMPLETE AT THIS TIME.
[2020-02-15 20:13] LABS: INR 1.1 (0.8-1.4); PROTHROMBIN TIME PATIENT 14.3 SEC (12.2-14.7)
[2020-02-15 20:19] LABS: ALANINE AMINOTRANSFERASE 41 U/L (0-55); ALBUMIN 3.9 GM/DL (3.2-4.5); ALKALINE PHOSPHATASE 61 U/L (40-136); BUN/CREATININE RATIO 14; CALCIUM 8.6 MG/DL (8.5-10.1); CARBON DIOXIDE 18 MMOL/L (21-32); CHLORIDE 97 MMOL/L (98-107); CREATININE SERUM 0.77 MG/DL (0.60-1.30); GFR ESTIMATED > 60; GLUCOSE 165 MG/DL (70-105); POTASSIUM 3.8 MMOL/L (3.6-5.0); SODIUM 131 MMOL/L (135-145); TOTAL PROTEIN 6.6 GM/DL (6.4-8.2)
[2020-02-15] MEDS ORDERED: NS IV 1000 ML 1,000 ML IV SCH (20:22)
--- NOTE | 2020-02-15 20:40 | Diagnostic Imaging Report ---
INDICATION: Altered mental status. COMPARISON: None. EXAMINATION: Single frontal view of the chest was obtained. FINDINGS: Normal heart size and pulmonary vascularity. The lungs are well aerated and clear. No large pleural effusion or pneumothorax is seen. The visualized osseous structures show no acute abnormality. IMPRESSION: No acute cardiopulmonary process. Dictated by: Dictated on workstation # [id number]
[2020-02-15 20:43] LABS: LYMPHOCYTES % (MANUAL) 4 %; MONOCYTES % (MANUAL) 6 %; NEUTROPHILS % (MANUAL) 90 %
[2020-02-15 20:44] LABS: SPHEROCYTES MODERATE
[2020-02-15] MEDS ORDERED: HOLD METFORMIN - RECEIVED CONTRAST 20 ML VIAL IV SCH (21:00)
[2020-02-15] MEDS ORDERED: CATHETER FLUSH 10 ML SYR IV PRN (21:00)
[2020-02-15] MEDS ORDERED: IOHEXOL 350 MG/ML 100 ML (OMNIPAQUE 350) VIAL IV ONE (21:00)
[2020-02-15] MEDS ORDERED: NS 100 ML (IVPB) BAG IV ONE (21:00)
--- NOTE | 2020-02-15 21:19 | Diagnostic Imaging Report ---
PROCEDURE: CT abdomen and pelvis with contrast. TECHNIQUE: Multiple contiguous axial images were obtained through the abdomen and pelvis after administration of intravenous contrast. Auto Exposure Controls were utilized during the CT exam to meet ALARA standards for radiation dose reduction. INDICATION: Increased confusion and fever. COMPARISON: None. FINDINGS: Included portions of the lung bases show pleural-based masslike density within the posterior left lower lobe that measures 1.2 x 2.6 cm (image 1, series 2). CT abdomen: Large amount of air and stool is noted within the colon and rectum. Stool ball measures 8.7 x 9.5 cm in axial dimension. Normal appendix cannot be adequately identified, but there is no pericecal inflammation. Small bowel loops are nondistended. Kidneys, adrenal glands, spleen, pancreas and liver have a normal CT appearance. There is no loculated fluid collection, free fluid or free air within the abdomen. No abnormal mesenteric or retroperitoneal adenopathy is seen. Note is made of moderate calcified aortic, arterial and coronary atherosclerosis. Osseous structures show no acute abnormality. CT pelvis: Urinary bladder is unopacified. No calculi are seen within the urinary bladder. There is no loculated fluid collection, free fluid or free air within the pelvis. No abnormal adenopathy is seen. Osseous structures show no acute abnormality. IMPRESSION: 1. Large amount of rectal and colonic air and stool. Please correlate for underlying impaction/constipation. 2. Partially visualized pleural-based nodular masslike density within the posterior left lower lobe. Complete characterization with dedicated CT of the chest is recommended and could be performed on a nonemergent basis. 3. Moderate calcified aortic, coronary and arterial atherosclerosis. Dictated by: Dictated on workstation # [id number]
--- NOTE | 2020-02-15 23:30 | NUR ---
MARIA INES ROSSI admitted to room 425-1, with an admitting diagnosis of Dehydration, Metformin Lactic Acidosis, and Constipation, on 02/15/20 from ER via card, accompanied by this RN.MARIA INES ROSSI introduced to surroundings, call light, bed controls, phone, TV, temperature control, lights, meal times, smoking policy, visitor policy, side rail policy, bathrooms and showers. Patient Rights given to patient in the handbook. MARIA INES ROSSI verbalizes understanding that [facility] is not responsible for the loss or damage to any personal effects or valuables that are kept in the patients posession during their hospitalization. The following Patient Care Plans were discussed with the fall precautions and dehydration: Discharge Planning, to [place]. MARIA INES ROSSI verbalizes understanding of Interdisciplinary Patient Education. Patient was informed about the Rapid Response Team and its purpose.
[2020-02-15] MEDS ORDERED: LORazepam INJ 2 MG/ML (ATIVAN) VIAL IV PRN (23:45)
[2020-02-15] MEDS ORDERED: ONDANSETRON 4 MG/2 ML (SDV) Z0FRAN IV PRN (23:45)
[2020-02-15] MEDS ORDERED: polyethylene glycoL POWDER 17 GM (MIRALAX) PACK PO PRN (23:45)
[2020-02-15] MEDS ORDERED: OLANZapine 5 MG ODT (ZyPREXA ZYDIS) PO PRN (23:45)
[2020-02-15] MEDS: NS W/KCL 20 MEQ/L 1,000 ML IV SCH (23:52)
[2020-02-16 04:00] VITALS: BP 158/67
[2020-02-16] MEDS: NS W/KCL 20 MEQ/L 1,000 ML IV SCH ×4 (04:41→20:24)
[2020-02-16 04:49] LABS: BASOPHILS % (AUTO) 0 % (0-10); EOSINOPHILS % (AUTO) 0 % (0-10); HEMATOCRIT 33 % (40-54); HEMOGLOBIN 11.8 G/DL (13.3-17.7); LYMPHOCYTES % (AUTO) 21 % (12-44); MEAN CORPUSCULAR HEMOGLOBIN 33 PG (25-34); MEAN CORPUSCULAR HGB CONC 36 G/DL (32-36); MEAN CORPUSCULAR VOLUME 92 FL (80-99); MEAN PLATELET VOLUME 10.5 FL (7.4-10.4); MONOCYTES # (AUTO) 0.6 X 10^3 (0.0-1.0); MONOCYTES % (AUTO) 6 % (0-12); NEUTROPHILS # (AUTO) 6.9 X 10^3 (1.8-7.8); NEUTROPHILS % (AUTO) 72 % (42-75); PLATELET COUNT 142 10^3/uL (130-400); RED CELL DISTRIBUTION WIDTH 12.2 % (10.0-14.5); WHITE BLOOD COUNT 9.6 10^3/uL (4.3-11.0)
[2020-02-16 05:02] LABS: ALBUMIN 3.2 GM/DL (3.2-4.5); CHLORIDE 112 MMOL/L (98-107); POTASSIUM 3.6 MMOL/L (3.6-5.0); SODIUM 141 MMOL/L (135-145)
[2020-02-16 05:03] LABS: CALCIUM 7.9 MG/DL (8.5-10.1)
[2020-02-16 05:04] LABS: GLUCOSE 137 MG/DL (70-105)
[2020-02-16 05:05] LABS: TOTAL PROTEIN 5.5 GM/DL (6.4-8.2)
[2020-02-16 05:06] LABS: BILIRUBIN,TOTAL 0.8 MG/DL (0.1-1.0); CARBON DIOXIDE 20 MMOL/L (21-32)
[2020-02-16 05:08] LABS: ALKALINE PHOSPHATASE 48 U/L (40-136); CREATININE SERUM 0.63 MG/DL (0.60-1.30); GFR ESTIMATED > 60
[2020-02-16 05:09] LABS: BUN/CREATININE RATIO 13
[2020-02-16 05:11] LABS: ALANINE AMINOTRANSFERASE 33 U/L (0-55)
[2020-02-16] MEDS: inSUlin ASPART (NovoLOG) 1 UNIT/0.01 ML (CHARGE PER UNIT) SC SCH ×4 (06:06→21:22)
[2020-02-16] MEDS ORDERED: OLAN10TA19 PO (06:17)
[2020-02-16] MEDS ORDERED: METF-397 PO (06:17)
[2020-02-16 07:44] VITALS: BP 143/63
[2020-02-16] MEDS: OLANZapine 5 MG (ZyPREXA) TAB PO SCH (09:18)
[2020-02-16] MEDS ORDERED: CANA300T PO (10:38)
--- NOTE | 2020-02-16 10:39 | NUR ---
I ENTERED THE MED REC USING THE MEDICATION REVIEW REPORT FROM [facility]. INVOKANA 300MG WAS NOT SHOWING ON THE EXT MED HISTORY- I CALLED [facility] TO QUESTION THIS AND WAS TOLD IT WAS A NEW MED AND [facility] HAD DELIVERED IT- I SPOKE WITH SHAVON AND IT WAS FILLED ON 02-12-2020 #30/30DS
--- NOTE | 2020-02-16 15:06 | NUR ---
RD ASSESSMENT PMHx: DM; schizophrenia PT INTERACTION: Pt was awake and pleasant during nutrition assessment. Note pt has AMS, per chart review. Pt states current appetite is fair. Note avg PO intake 50% x2meal, per chart review. Pt states following a regular diet at home, and has no issues with chewing/swallowing food. Pt states no issues with nausea, vomiting, constipation, or diarrhea, and that his last BM was "about a month ago." Note no BM has been recorded and pt currently on bowel regimen of Miralax PRN, per chart review. Pt states recent 20# wt loss x1mon. Note unable to determine recent wt hx, per chart review. Pt states current DM management is good, but he is unaware of average blood glucose levels. Note unable to determine recent HbA1c, per chart review. ABNORMAL NUTRITION-RELATED LAB VALUES LOW: Ca 7.9; HIGH: Cl 112; glu 137 Est. kcal needs: 4098-7006 kcal | 25-30 kcal/kg Est. Pro needs: 74-89 g Pro | 1.0-1.2 g Pro/kg PES STATEMENT: Inadequate oral intake (NI-2.1) related to loss of appetite | AMS as evidenced by pt interview | chart review | avg PO intake 50% x2meal INTERVENTION: Continue with current diet order of CHO 75g/m 0snack diet. Pt may benefit from nutrition supplementation if PO intake declines. Due to pt's mental status, will attempt to offer DM education at another time. Will continue to follow and reassess as pt needs, intake, and status change. MONITOR/EVALUATE: PO Intake; Plan of Care; Hydration Status; Weight Status; Lab Values Lena Trujillo, MS, RD, LD
--- NOTE | 2020-02-16 15:12 | History & Physical ---
HPI History of Present Illness: 64 yo male sent from [facility] due to elevated temperature and increased confusion. He denies any concerns this morning. His work-up in the ER was remarkable for positive flu A, lactic acid elevation and large amount of rectal and colonic stool and air as well as partially visualized lung mass. Source: patient Exam Limitations: clinical condition Date seen by provider: Feb 16, 2020 Time Seen by Provider: 15:00 Attending Physician Claudio Guardado MD PCP Anthony Logan MD Consult Date of Admission Feb 15, 2020 at 22:15 Home Medications Home Medications Reviewed patient Home Medication Reconciliation performed by pharmacy medication reconciliations medical records technician and/or nursing. Patients Allergies have been reviewed. Allergies Coded Allergies: No Known Drug Allergies (Unverified , 02/15/20) OST-Gbprij-Byvths Hx Patient Social History Alcohol Use: Denies Use Recreational Drug Use: No Smoking Status: Current Everyday Smoker Type Used: Cigarettes Recent Foreign Travel: No Contact w/other who traveled: No Recent Hopitalizations: No Recent Infectious Disease Expo: No Physical Abuse Screen: No Sexual Abuse: No Past Medical History PMHx: Difficult to obtain due to patient unable to provide DMII Behvaioral health disorder suspected given he is on olanzepine SurgHx: Unknown Family Medical History Family History: Patient reports no known family medical history. Review of Systems ([facility]) Constitutional: No fever EENTM: No nose congestion, No throat pain Respiratory: No cough, No short of breath Cardiovascular: No chest pain Gastrointestinal: No abdominal pain, No constipation, No diarrhea, No nausea, No vomiting Musculoskeletal: No joint pain Psychiatric/Neurological: No Symptoms Reported Reviewed Test Results Reviewed Test Results Lab Laboratory Tests Test 02/15/20 19:35 02/15/20 21:46 02/16/20 04:35 02/16/20 10:24 Range/Units White Blood Count 13.7 H 9.6 4.3-11.0 10^3/uL Red Blood Count 4.04 L 3.62 L 4.35-5.85 10^6/uL Hemoglobin 13.5 11.8 L 13.3-17.7 G/DL Hematocrit 36 L 33 L 40-54 % Mean Corpuscular Volume 90 92 80-99 FL Mean Corpuscular Hemoglobin 33 33 25-34 PG Mean Corpuscular Hemoglobin Concent 37 H 36 32-36 G/DL Red Cell Distribution Width 12.1 12.2 10.0-14.5 % Platelet Count 171 142 130-400 10^3/uL Mean Platelet Volume 10.3 10.5 H 7.4-10.4 FL Neutrophils (%) (Auto) 88 H 72 42-75 % Lymphocytes (%) (Auto) 6 L 21 12-44 % Monocytes (%) (Auto) 6 6 0-12 % Eosinophils (%) (Auto) 0 0 0-10 % Basophils (%) (Auto) 0 0 0-10 % Neutrophils # (Auto) 12.1 H 6.9 1.8-7.8 X 10^3 Lymphocytes # (Auto) 0.8 L 2.0 1.0-4.0 X 10^3 Monocytes # (Auto) 0.8 0.6 0.0-1.0 X 10^3 Eosinophils # (Auto) 0.0 0.0 0.0-0.3 10^3/uL Basophils # (Auto) 0.0 0.0 0.0-0.1 10^3/uL Neutrophils % (Manual) 90 % Lymphocytes % (Manual) 4 % Monocytes % (Manual) 6 % Spherocytes MODERATE Prothrombin Time 14.3 12.2-14.7 SEC INR Comment 1.1 0.8-1.4 Activated Partial Thromboplast Time 30 24-35 SEC Urine Color YELLOW Urine Clarity CLEAR Urine pH 6.0 5-9 Urine Specific [place] <=1.005 1.016-1.022 Urine Protein NEGATIVE NEGATIVE Urine Glucose (UA) 3+ H NEGATIVE Urine Ketones NEGATIVE NEGATIVE Urine Nitrite NEGATIVE NEGATIVE Urine Bilirubin NEGATIVE NEGATIVE Urine Urobilinogen 1.0 < = 1.0 MG/DL Urine Leukocyte Esterase NEGATIVE NEGATIVE Urine RBC (Auto) NEGATIVE NEGATIVE Urine RBC 0-2 /HPF Urine WBC RARE /HPF Urine Squamous Epithelial Cells NONE /HPF Urine Crystals NONE /LPF Urine Bacteria NEGATIVE /HPF Urine Casts NONE /LPF Urine Mucus NEGATIVE /LPF Urine Culture Indicated NO Sodium Level 131 L 141 135-145 MMOL/L Potassium Level 3.8 3.6 3.6-5.0 MMOL/L Chloride Level 97 L 112 #H 98-107 MMOL/L Carbon Dioxide Level 18 L 20 L 21-32 MMOL/L Anion Gap 16 H 9 5-14 MMOL/L Blood Urea Nitrogen 11 8 7-18 MG/DL Creatinine 0.77 0.63 0.60-1.30 MG/DL Estimat Glomerular Filtration Rate > 60 > 60 BUN/Creatinine Ratio 14 13 Glucose Level 165 H 137 H 70-105 MG/DL Lactic Acid Level 4.11 *H 1.58 0.50-2.00 MMOL/L Calcium Level 8.6 7.9 L 8.5-10.1 MG/DL Corrected Calcium 8.7 8.5 8.5-10.1 MG/DL Total Bilirubin 1.0 0.8 0.1-1.0 MG/DL Aspartate Amino Transf (AST/SGOT) 31 34 5-34 U/L Alanine Aminotransferase (ALT/SGPT) 41 33 0-55 U/L Alkaline Phosphatase 61 48 40-136 U/L Total Protein 6.6 5.5 L 6.4-8.2 GM/DL Albumin 3.9 3.2 3.2-4.5 GM/DL Glucometer 157 H 70-110 MG/DL Radiology 02/14 CXR no acute process 02/15 CT abd/pelvis IMPRESSION: 1. Large amount of rectal and colonic air and stool. Please correlate for un derlying impaction/constipation. 2. Partially visualized pleural-based nodular masslike density within the posterior left lower lobe. Complete characterization with dedicated CT of the chest is recommended and could be performed on a nonemergent basis. 3. Moderate calcified aortic, coronary and arterial atherosclerosis. Physical Exam-([facility]) Physical Exam Vital Signs VS - Last 72 Hours, by Label 02/15/20 02/15/20 02/15/20 02/15/20 19:17 19:54 20:10 20:20 Temp 37.6 37.6 37.2 Pulse 98 87 98 Resp 20 14 14 B/P (MAP) 155/79 (104) 157/73 (101) 145/66 Pulse Ox 98 98 O2 Delivery Room Air Room Air Room Air 02/15/20 02/15/20 02/15/20 02/15/20 20:24 20:32 21:19 21:33 Temp 37.3 Pulse 92 92 85 78 Resp 16 17 19 19 B/P (MAP) 159/67 (97) 152/69 (96) 136/68 (90) 153/81 (105) Pulse Ox 96 95 97 96 O2 Delivery Room Air Room Air Room Air Room Air 02/15/20 02/15/20 02/15/20 02/15/20 21:48 22:02 22:16 22:32 Pulse 76 68 63 61 Resp 20 22 21 20 B/P (MAP) 141/68 (92) 135/68 (90) 137/68 (91) 135/66 (89) Pulse Ox 96 98 98 98 O2 Delivery Room Air Room Air Room Air Room Air 02/15/20 02/15/20 02/15/20 02/15/20 22:49 23:22 23:30 23:30 Temp 36.7 36.7 36.9 Pulse 66 66 60 Resp 15 15 20 B/P (MAP) 171/77 (108) 171/77 (108) 137/70 Pulse Ox 99 99 98 98 O2 Delivery Room Air Room Air Room Air Room Air 02/15/20 02/15/20 02/16/20 02/16/20 23:30 23:35 04:00 07:44 Temp 36.9 36.9 36.7 Pulse 60 64 60 Resp 20 16 18 B/P (MAP) 137/70 (92) 158/67 (97) 143/63 (89) Pulse Ox 98 98 97 97 O2 Delivery Room Air Room Air Room Air Room Air 02/16/20 02/16/20 08:00 12:23 Temp 36.7 Pulse Ox 97 O2 Delivery Room Air Capillary Refill : Less Than 3 SecondsLess Than 3 Seconds General Appearance: WD/WN, no apparent distress Eyes: Bilateral Eye EOMI Respiratory: lungs clear, normal breath sounds Cardiovascular: regular rate, rhythm, no murmur Gastrointestinal: normal bowel sounds, non tender, soft, no organomegaly Extremities: no pedal edema Neurologic/Psychiatric: standards engineer II-XII nml as tested, alert, normal mood/affect, other (oriented to self, location and year but not date or reason for admission) Skin: warm/dry Assessment/Plan Assessment/Plan Admission Status: Observation (1) Influenza A Status: Acute Assessment & Plan: No respiratory symptoms, however given age and comorbidities will start Tamiflu. Stable on room air. (2) Dehydration Status: Resolved Assessment & Plan: Hyponatremia and acidosis resolved with IVF. (3) Lactic acidosis Status: Resolved Assessment & Plan: Suspect secondary to dehydration. Resolved with IVF. (4) Pleural mass Assessment & Plan: CT chest for further evaluation. (5) Constipation Status: Acute Assessment & Plan: Miralax TID (6) Hyponatremia Status: Resolved Assessment & Plan: Hypovolemic hyponatremia, resolved with IVF (7) Diabetes mellitus, type 2 Status: Chronic Assessment & Plan: Hold home orals, diabetic diet, sliding scale insulin Qualifiers: (8) High anion gap metabolic acidosis Status: Resolved Assessment & Plan: Lactic acidosis (9) DVT prophylaxis Status: Acute Assessment & Plan: Enoxaparin Clinical Quality Measures DVT/VTE Risk/Contraindication: Risk Factor Score Per Nursin RFS Level Per Nursing on Admit: 4+=Very High CLAUDIO GUARDADO MD Feb 16, 2020 15:12
[2020-02-16] MEDS ORDERED: ENOXAPARIN 40 MG/0.4 ML (LOVENOX) SYR SQ SCH (15:30)
[2020-02-16 16:08] VITALS: BP 165/70
--- NOTE | 2020-02-16 16:17 | Diagnostic Imaging Report ---
EXAMINATION: CT Chest without contrast. TECHNIQUE: Multiple contiguous axial images were obtained through the chest without the use of intravenous contrast. All CT scans use one or more of the following dose optimizing techniques: automated exposure control, MA and/or KvP adjustment based on a patient size and exam type, or iterative reconstruction. HISTORY: Lung mass. COMPARISON: None available. FINDINGS: There is no edema or pneumonia. No pleural effusion. No pneumothorax. No suspicious nodules. Lungs are moderately emphysematous. There is mucous in the trachea. There is a 2.6 x 1.1 cm pleural-based mass in the left hemithorax in the eighth and ninth left intercostal spaces. The attenuation is that of fluid. Heart size is normal. There are moderate coronary artery calcifications. No pericardial effusion. Aorta is normal in caliber. There is no axillary or supraclavicular lymphadenopathy. There is no mediastinal lymphadenopathy. Limited views of the upper abdomen show cholelithiasis. There are no suspicious osseus lesions. IMPRESSION: 1. Indeterminate pleural-based mass in the left hemithorax between the eighth and ninth intercostal spaces. The attenuation is that of fluid. This is suggestive of a neurogenic tumor such as neurofibroma or schwannoma but the differential also includes metastatic disease and solitary fibrous tumor of the pleura among other considerations. If biopsy is not done, then close follow-up is recommended to ensure stability. Dictated by: Dictated on workstation # [id number]
[2020-02-16] MEDS: ACETAMINOPHEN 500 MG TAB (TYLENOL) PO PRN (18:46)
[2020-02-16 19:43] VITALS: BP 162/81
[2020-02-16] MEDS: polyethylene glycoL POWDER 17 GM (MIRALAX) PACK PO SCH (20:23)
[2020-02-16] MEDS: OSELTAMIVIR 75 MG (TAMIFLU) CAPSULE PO SCH (20:23)
[2020-02-16 23:25] VITALS: BP 153/92
[2020-02-17 04:30] VITALS: BP 162/70
[2020-02-17 05:07] LABS: HEMOGLOBIN 11.2 G/DL (13.3-17.7); MEAN PLATELET VOLUME 10.5 FL (7.4-10.4); RED CELL DISTRIBUTION WIDTH 12.7 % (10.0-14.5)
[2020-02-17 05:16] LABS: CHLORIDE 112 MMOL/L (98-107); POTASSIUM 3.9 MMOL/L (3.6-5.0); SODIUM 139 MMOL/L (135-145)
[2020-02-17 05:18] LABS: CALCIUM 7.8 MG/DL (8.5-10.1); GLUCOSE 148 MG/DL (70-105)
[2020-02-17 05:20] LABS: CARBON DIOXIDE 20 MMOL/L (21-32)
[2020-02-17 05:22] LABS: CREATININE SERUM 0.59 MG/DL (0.60-1.30); GFR ESTIMATED > 60
[2020-02-17 05:23] LABS: BUN/CREATININE RATIO 14
[2020-02-17] MEDS: inSUlin ASPART (NovoLOG) 1 UNIT/0.01 ML (CHARGE PER UNIT) SC SCH ×2 (05:28→11:44)
[2020-02-17] MEDS: NS W/KCL 20 MEQ/L 1,000 ML IV SCH (06:41)
[2020-02-17 08:12] VITALS: BP 167/73
[2020-02-17] MEDS: OLANZapine 5 MG (ZyPREXA) TAB PO SCH (10:25)
[2020-02-17] MEDS: polyethylene glycoL POWDER 17 GM (MIRALAX) PACK PO SCH (10:25)
[2020-02-17] MEDS: OSELTAMIVIR 75 MG (TAMIFLU) CAPSULE PO SCH (10:26)
[2020-02-17] MEDS ORDERED: POLY17PO31 PO (10:30)
[2020-02-17] MEDS ORDERED: OSLT75C PO (10:30)
--- NOTE | 2020-02-17 10:34 | Discharge Summary ---
Discharge Summary Hospital Course Problems/Diagnosis: (1) Influenza A Status: Acute Assessment & Plan: No respiratory symptoms, however given age and comorbidities will start Tamiflu. Stable on room air. Discharged with remainder of Tamiflu. (2) Dehydration Status: Resolved Resolution Date/Time: 02/16/20 @ 15:18 Assessment & Plan: Hyponatremia and acidosis resolved with IVF. (3) Lactic acidosis Status: Resolved Resolution Date/Time: 02/16/20 @ 15:19 Assessment & Plan: Suspect secondary to dehydration. Resolved with IVF. (4) Pleural mass Assessment & Plan: CT chest for further evaluation showed indeterminate mass, most likely needs biopsy, will need arranged outpatient after completing flu treatment. CT chest/abdomen 02/15: "IMPRESSION: 1. Indeterminate pleural-based mass in the left hemithorax between the eighth and ninth intercostal spaces. The attenuation is that of fluid. This is suggestive of a neurogenic tumor such as neurofibroma or schwannoma but the differential also includes metastatic disease and solitary fibrous tumor of the pleura among other considerations. If biopsy is not done, then close follow-up is recommended to ensure stability." (5) Constipation Status: Acute Assessment & Plan: Miralax TID (6) Hyponatremia Status: Resolved Resolution Date/Time: 02/16/20 @ 15:19 Assessment & Plan: Hypovolemic hyponatremia, resolved with IVF (7) Diabetes mellitus, type 2 Status: Chronic Assessment & Plan: Held home orals inpatient, diabetic diet, sliding scale insulin Qualifiers: (8) High anion gap metabolic acidosis Status: Resolved Resolution Date/Time: 02/16/20 @ 15:19 Assessment & Plan: Lactic acidosis Hospital Course Date of Admission: Feb 15, 2020 at 22:15 Admission Diagnosis : Family Physician/Provider: Anthony Logan MD Date of Discharge: 02/17/20 Discharge Diagnosis: See problem list Hospital Course: See problem list Labs and Pending Lab Test: Laboratory Tests 02/16/20 16:11: Glucometer 153H 02/17/20 04:44: White Blood Count 4.0L, Red Blood Count 3.40L, Hemoglobin 11.2L, Hematocrit 32L, Mean Corpuscular Volume 94, Mean Corpuscular Hemoglobin 33, Mean Corpuscular Hemoglobin Concent 35, Red Cell Distribution Width 12.7, Platelet Count 112L, Mean Platelet Volume 10.5H, Sodium Level 139, Potassium Level 3.9, Chloride Level 112H, Carbon Dioxide Level 20L, Anion Gap 7, Blood Urea Nitrogen 8, Creatinine 0.59L, Estimat Glomerular Filtration Rate > 60, BUN/Creatinine Ratio 14, Glucose Level 148H, Calcium Level 7.8L Microbiology 02/15/20 Influenza Types A,B Antigen (MELISSA) - Final, Complete 02/15/20 Blood Culture - Preliminary, Resulted No growth 02/15/20 Urine Culture - Final, Complete 3 or more isolates Home Meds Active Reported Invokana (Canagliflozin) 300 Mg Tablet 300 Mg PO DAILY Olanzapine 10 Mg Tablet 20 Mg PO DAILY TAKES 2 (10MG) TABS Metformin HCl 500 Mg Tablet 1,000 Mg PO BID TAKES 2 (500MG) TABS TWICE DAILY Assessment/Pt DC Instructions Anne Robbins will see you at [facility]. Discharge Diet: ADA Diet Activity as Tolerated: Yes Orders-Post D/C & Referrals Pneu Vac Indicated: Yes Discharge Physical Examination Allergies: Coded Allergies: No Known Drug Allergies (Unverified , 02/15/20) General Appearance: No Apparent Distress Respiratory: Lungs Clear, Normal Breath Sounds Cardiovascular: Regular Rate, Rhythm, No Murmur Skin: Warm/Dry Neurologic/Psychiatric: Alert, Oriented x3 (oriented to month/year not date) Copy Copies To 1: Anne Robbins APRN Clinical Quality Measures DVT/VTE Risk/Contraindication: Risk Factor Score Per Nursin RFS Level Per Nursing on Admit: 4+=Very High CLAUDIO COOK MD Feb 17, 2020 10:34
[2020-02-17 11:38] VITALS: BP 173/78
[2020-02-17] MEDS: ACETAMINOPHEN 500 MG TAB (TYLENOL) PO PRN (11:45)
[2020-02-17 13:54] VITALS: BP 173/78
--- NOTE | 2020-02-17 14:23 | NUR ---
CM/SS visited with the patient for discharge planning. Plan: The patient will return to [facility]. The set cherry picker operator time is for 1:30 today. CM/SS faxed the patients discharge information to the facility. The facility did not have any further questions or needs. CM/SS asked the patient if he had other discharge needs. He stated "no".
== END 2020-02-17 13:55 | disposition home or self-care (01) ==
LOC: ER 19:22 → 4TH 22:15
PROVIDERS: ADMIT Internal Medicine; ATTEND Family Medicine
DX: J10.1 Influenza due to other identified influenza virus with other respiratory manifestations (principal); E86.0 Dehydration; E11.10 Type 2 diabetes mellitus with ketoacidosis without coma; K56.49 Other impaction of intestine; E78.1 Pure hyperglyceridemia; R91.8 Other nonspecific abnormal finding of lung field; K59.00 Constipation, unspecified; I82.509 Chronic embolism and thrombosis of unspecified deep veins of unspecified lower extremity; F31.89 Other bipolar disorder; F17.210 Nicotine dependence, cigarettes, uncomplicated; Z79.01 Long term (current) use of anticoagulants; Z79.84 Long term (current) use of oral hypoglycemic drugs
CPT/HCPCS: 36415; 71045; 71250; 74177; 80048; 80053; 81000; 82962; 83605; 85007; 85025; 85027; 85610; 85730; 87040; 87088; 87804; G0378

== ENCOUNTER → 2020-03-22 | Outpatient (CLI) | payer MEDICARE, MEDICAID ==
[~2020-03-22] MED LIST: CANA300T PO; CATHETER FLUSH 10 ML SYR IV PRN; HOLD METFORMIN - RECEIVED CONTRAST 20 ML VIAL IV SCH; IOHEXOL 350 MG/ML 100 ML (OMNIPAQUE 350) VIAL IV ONE; METF-397 PO; NS 100 ML (IVPB) BAG IV ONE; OLAN10TA19 PO; OSLT75C PO; POLY17PO31 PO
[2020-03-22 11:07] LABS: ALANINE AMINOTRANSFERASE 60 U/L (0-55); ALBUMIN 4.3 GM/DL (3.2-4.5); ALKALINE PHOSPHATASE 61 U/L (40-136); BILIRUBIN,TOTAL 0.7 MG/DL (0.1-1.0); BUN/CREATININE RATIO 11; CALCIUM 9.5 MG/DL (8.5-10.1); CARBON DIOXIDE 27 MMOL/L (21-32); CHLORIDE 104 MMOL/L (98-107); CREATININE SERUM 0.71 MG/DL (0.60-1.30); GFR ESTIMATED > 60; GLUCOSE 112 MG/DL (70-105); POTASSIUM 4.2 MMOL/L (3.6-5.0); SODIUM 141 MMOL/L (135-145); TOTAL PROTEIN 7.6 GM/DL (6.4-8.2)
--- NOTE | 2020-03-22 12:15 | Diagnostic Imaging Report ---
PROCEDURE: CT chest with contrast only. TECHNIQUE: Multiple contiguous axial images were obtained through the chest after administration of intravenous contrast. Auto Exposure Controls were utilized during the CT exam to meet ALARA standards for radiation dose reduction. INDICATION: Mass in the left lower lung. COMPARISON: February 16, 2020. FINDINGS: No significant adenopathy within the chest. Scattered vascular calcifications without aneurysmal dilatation of the thoracic aorta. Advanced coronary artery calcifications are present. Trace pericardial effusion, similar to the prior examination. Lymph nodes anterior to the heart within the epicardial space are present, having decreased in size since the prior exam. This currently measures 1.0 x 0.8 cm when previously measured 1.2 x 1.0 cm. Mild background emphysematous changes, particularly paraseptal emphysematous changes. 2.5 cm pleural-based ovoid nodular density is again identified between the left 8th and 9th ribs. This measures 2.5 cm in length, which is not significantly changed since the prior examination. No associated osseous destruction. Mild adjacent atelectasis is present. Stable 6 mm left upper lobe pulmonary nodule, axial image 81. Mild dependent atelectasis on the right. Sub-4 mm subpleural right middle lobe pulmonary nodules are stable. No new pulmonary nodule. The trachea is patent. Cholelithiasis. Visualized upper abdomen is otherwise unremarkable. No acute osseous abnormality. IMPRESSION: Essentially stable pleural-based mass lesion between the left 8th and 9th ribs without associated osseous destruction. Prior differential considerations remain unchanged. Anterior epicardial lymph nodes are present appearing slightly decreased in size since the prior examination. Background emphysematous changes with stable 6 mm and smaller bilateral pulmonary nodules. Recommend a CT of the chest in 12 months to ensure stability of these pulmonary nodules. Cholelithiasis. Dictated by: Dictated on workstation # [id number]
== END ==
LOC: RAD 10:17
PROVIDERS: ATTEND Nurse Practitioner Community Health
DX: J98.4 Other disorders of lung (principal); R91.8 Other nonspecific abnormal finding of lung field
CPT/HCPCS: 36415; 71260; 80053

== ENCOUNTER 2020-12-24 21:54 | Emergency (ER) | payer MEDICARE, MEDICAID ==
[~2020-12-24] VITALS: Ht 187.9 cm; Wt 72.5 kg
[~2020-12-24 21:54] MED LIST changes: -CATHETER FLUSH 10 ML SYR IV PRN; -HOLD METFORMIN - RECEIVED CONTRAST 20 ML VIAL IV SCH; -IOHEXOL 350 MG/ML 100 ML (OMNIPAQUE 350) VIAL IV ONE; -NS 100 ML (IVPB) BAG IV ONE; -POLY17PO31 PO; +POLY17PO54 PO
--- NOTE | 2020-12-24 22:07 | ED General ---
General Chief Complaint: General Problems/Pain Stated Complaint: NOT ACTING RIGHT Source of Information: Patient, EMS Exam Limitations: No Limitations History of Present Illness Date Seen by Provider: Dec 24, 2020 Time Seen by Provider: 22:00 Initial Comments Patient is a 65-year-old male who is sent to the emergency department by his half-way with a chief complaint of "not acting right". residential reports that the patient was walking in a abnormal manner when he was walking to the med room. They state that he did not seem to be acting like himself. He does have a history of bipolar disorder and schizoaffective disorder. Patient presents to me without complaints. He denies any chest pain or abdominal pain. He denies headache vision changes or speech difficulties. He states that he has not been sick recently. He states that he has had a little bit of urinary hesitancy over the course of the last month but denies burning or frequency. Patient denies any history of recent falls or trauma. He is eager to be discharged back to the half-way even at the time of presentation. All other review of systems reviewed and negative except as stated. Timing/Duration: 1 Hour Severity: Mild Associated Systoms: Denies Symptoms Allergies and Home Medications Allergies Coded Allergies: No Known Drug Allergies (Unverified , 02/15/20) Home Medications Canagliflozin 300 Mg Tablet, 300 MG PO DAILY, (Reported) Metformin HCl 500 Mg Tablet, 1,000 MG PO BID, (Reported) TAKES 2 (500MG) TABS TWICE DAILY Olanzapine 10 Mg Tablet, 20 MG PO DAILY, (Reported) TAKES 2 (10MG) TABS Oseltamivir Phosphate 75 Mg Cap, 75 MG PO BID Prescribed by: CLAUDIO COOK on 02/17/20 1030 Polyethylene Glycol 3350 17 Gm Powd.pack, 17 GM PO TID PRN for CONSTIPATION-1ST LINE Prescribed by: CLAUDIO COOK on 02/17/20 1030 Patient Home Medication List Home Medication List Reviewed: Yes Review of Systems Review of Systems Constitutional: see HPI EENTM: no symptoms reported Respiratory: no symptoms reported Cardiovascular: no symptoms reported Genitourinary: hesitancy Musculoskeletal: no symptoms reported Skin: no symptoms reported Psychiatric/Neurological: Anxiety All Other Systems Reviewed Negative Unless Noted: Yes Past Nolgzhi-Wxtqyu-Ldxuvo Hx Patient Social History Alcohol Use: Denies Use Smoking Status: Current Everyday Smoker Type Used: Electronic/Vapor Recent Hopitalizations: No Immunizations Up To Date Tetanus Booster (TDap): Unknown Seasonal Allergies Seasonal Allergies: No Past Medical History Cardiac: Yes Hypertension Endocrine: Yes (OBTAINED BY [employer] RECORDS) Diabetes, Non-Insulin dep Psychosocial: Yes (SCHIZOAFFECTIVE DISORDER - OBTAINED BY [employer] RECORDS) Bipolar Integumentary: No (POOR HISTORIAN-UNABLE TO OBTAIN INFO) Family Medical History Patient reports no known family medical history. Physical Exam Vital Signs Vital Signs - First Documented 12/24/20 21:55 Temp 35.8 Pulse 82 Resp 17 B/P (MAP) 188/77 (114) Pulse Ox 97 O2 Delivery Room Air Capillary Refill : Height, Weight, BMI Height: '" Weight: lbs. oz. kg; 21.05 BMI Method: General Appearance: No Apparent Distress, WD/WN Eyes: Bilateral Eye Normal Inspection, Bilateral Eye PERRL, Bilateral Eye EOMI HEENT: PERRL/EOMI, Normal ENT Inspection Neck: Supple Respiratory: Lungs Clear, Normal Breath Sounds, No Accessory Muscle Use, No Respiratory Distress Cardiovascular: Regular Rate, Rhythm Gastrointestinal: Non Tender, Soft Extremity: Normal Inspection Neurologic/Psychiatric: Alert, Oriented x3, No Motor/Sensory Deficits, Normal Mood/Affect Skin: Normal Color, Warm/Dry Progress/Results/Core Measures Suspected Sepsis SIRS Temperature: Pulse: Respiratory Rate: Blood Pressure / Mean: Results/Orders Lab Results Laboratory Tests Test 12/24/20 22:14 Range/Units Urine Color YELLOW Urine Clarity SL CLOUDY Urine pH 5.5 5-9 Urine Specific [place] 1.020 1.016-1.022 Urine Protein NEGATIVE NEGATIVE Urine Glucose (UA) 3+ H NEGATIVE Urine Ketones NEGATIVE NEGATIVE Urine Nitrite NEGATIVE NEGATIVE Urine Bilirubin NEGATIVE NEGATIVE Urine Urobilinogen 1.0 < = 1.0 MG/DL Urine Leukocyte Esterase NEGATIVE NEGATIVE Urine RBC (Auto) NEGATIVE NEGATIVE Urine RBC NONE /HPF Urine WBC NONE /HPF Urine Squamous Epithelial Cells NONE /HPF Urine Crystals NONE /LPF Urine Bacteria NEGATIVE /HPF Urine Casts NONE /LPF Urine Mucus NEGATIVE /LPF Urine Culture Indicated NO My Orders Orders - MARIO PIMENTEL MD Ua Culture If Indicated (12/24/20 22:07) Vital Signs/I&O 12/24/20 12/24/20 21:55 23:22 Temp 35.8 Pulse 82 78 Resp 17 18 B/P (MAP) 188/77 (114) 169/80 Pulse Ox 97 97 O2 Delivery Room Air Room Air Capillary Refill : Departure Impression Primary Impression: Well adult exam Disposition: HOME, SELF-CARE Condition: Stable Departure-Patient Inst. Decision time for Depature: 22:55 Referrals: CLAUDIA HERNANDEZ MD (PCP/Family) Primary Care Physician Patient Instructions: Heart Healthy Diet Add. Discharge Instructions: Continue to take your daily medications as prescribed. Follow-up with your primary care physician as needed. Return to the emergency room for any new, concerning or emergent symptoms. All discharge instructions reviewed with patient and/or family. Voiced understanding. MARIO PIMENTEL MD Dec 24, 2020 22:07
[2020-12-24 22:19] LABS: BILIRUBIN,URINE NEGATIVE (NEGATIVE); CLARITY,URINE SL CLOUDY; COLOR,URINE YELLOW; GLUCOSE, URINE (UA) 3+ (NEGATIVE); KETONES,URINE NEGATIVE (NEGATIVE); LEUKOCYTE ESTERASE ,URINE NEGATIVE (NEGATIVE); NITRITE,URINE NEGATIVE (NEGATIVE); PH,URINE 5.5 (5-9); PROTEIN,URINE NEGATIVE (NEGATIVE)
[2020-12-24 22:27] LABS: BACTERIA,URINE NEGATIVE /HPF
[2020-12-24 23:22] VITALS: BP 169/80
== END 2020-12-24 23:27 | disposition home or self-care (01) ==
LOC: EDUNIT# 21:54 → ER 21:55
DX: Z00.00 Encounter for general adult medical examination without abnormal findings (principal); F31.9 Bipolar disorder, unspecified; F20.9 Schizophrenia, unspecified; F41.9 Anxiety disorder, unspecified; E11.9 Type 2 diabetes mellitus without complications; F17.290 Nicotine dependence, other tobacco product, uncomplicated; Z79.84 Long term (current) use of oral hypoglycemic drugs
CPT/HCPCS: 81000; 99283

== ENCOUNTER 2021-06-04 15:23 | Inpatient (IN) | payer MEDICARE, MEDICAID ==
[~2021-06-04] VITALS: Ht 187 cm; Wt 72.5 kg
[~2021-06-04 15:23] MED LIST changes: -OLAN10TA19 PO; +OLAN10TA71 PO
--- NOTE | 2021-06-04 15:31 | ED Chest Pain ---
General Stated Complaint: CP Source: patient Exam Limitations: no limitations History of Present Illness Date Seen by Provider: Jun 04, 2021 Time Seen by Provider: 15:28 Initial Comments To ER by [facility] from his home at [facility] with reports of chest pain onset 15 minutes prior to EMS arrival while he was at rest sitting in his chair. No history of chest pain is never had this before. The pain radiated down the left arm and resolved spontaneously. He could not identify any exacerbating or alleviating factors. EMS arrived and gave aspirin and nitroglycerin. History of schizoaffective disorder and diabetes type 2. No coronary history. Timing/Duration: resolved prior to arrival Severity/Quality: moderate Location: central Radiation: no radiation Activities at Onset: none ASA po MAPPING SPECIALIST: No NTG SL MAPPING SPECIALIST: No Allergies and Home Medications Allergies Coded Allergies: No Known Drug Allergies (Unverified , 02/15/20) Home Medications Canagliflozin 300 Mg Tablet, 300 MG PO DAILY, (Reported) Metformin HCl 500 Mg Tablet, 1,000 MG PO BID, (Reported) TAKES 2 (500MG) TABS TWICE DAILY Olanzapine 10 Mg Tablet, 20 MG PO DAILY, (Reported) TAKES 2 (10MG) TABS Oseltamivir Phosphate 75 Mg Cap, 75 MG PO BID Prescribed by: CLAUDIO COOK on 02/17/20 1030 Polyethylene Glycol 3350 17 Gm Powd.pack, 17 GM PO TID PRN for CONSTIPATION-1ST LINE Prescribed by: CLAUDIO COOK on 02/17/20 1030 Patient Home Medication List Home Medication List Reviewed: Yes Review of Systems Review of Systems Constitutional: see HPI EENTM: No Symptoms Reported Respiratory: No Symptoms Reported Cardiovascular: See HPI, Chest Pain Gastrointestinal: No Symptoms Reported Genitourinary: No Symptoms Reported Musculoskeletal: no symptoms reported Skin: no symptoms reported Psychiatric/Neurological: No Symptoms Reported Endocrine: No Symptoms Reported Hematologic/Lymphatic: No Symptoms Reported Past Zniqfpg-Edlyrj-Pupsof Hx Immunizations Up To Date Tetanus Booster (TDap): Unknown Seasonal Allergies Seasonal Allergies: No Past Medical History Cardiac: Yes Hypertension Endocrine: Yes (OBTAINED BY [facility]) Diabetes, Non-Insulin dep Psychosocial: Yes (SCHIZOAFFECTIVE DISORDER - OBTAINED BY [facility]) Bipolar Integumentary: No (POOR HISTORIAN-UNABLE TO OBTAIN INFO) Family Medical History Patient reports no known family medical history. Physical Exam Vital Signs Vital Signs - First Documented 06/04/21 06/04/21 15:24 15:30 Temp 36.5 Pulse 110 Resp 18 B/P (MAP) 117/80 (92) O2 Delivery Room Air Capillary Refill : Height, Weight, BMI Height: '" Weight: lbs. oz. kg; 20.00 BMI Method: General Appearance: No Apparent Distress, WD/WN, Thin, Other (A&O makes poor eye contact, GCS 15. ) Neck: Full Range of Motion, Normal Inspection Respiratory: Normal Breath Sounds, No Accessory Muscle Use, No Respiratory Distress Cardiovascular: Regular Rate, Rhythm, Normal Peripheral Pulses Gastrointestinal: Normal Bowel Sounds, Non Tender, Soft Extremity: Normal Capillary Refill, Normal Inspection Neurologic/Psychiatric: Alert, Oriented x3 Skin: Normal Color, Warm/Dry Progress/Results/Core Measures Results/Orders Lab Results Laboratory Tests Test 06/04/21 15:24 06/04/21 17:20 Range/Units White Blood Count 5.9 4.3-11.0 10^3/uL Red Blood Count 4.29 L 4.30-5.52 10^6/uL Hemoglobin 14.2 13.3-17.7 g/dL Hematocrit 42 40-54 % Mean Corpuscular Volume 97 80-99 fL Mean Corpuscular Hemoglobin 33 25-34 pg Mean Corpuscular Hemoglobin Concent 34 32-36 g/dL Red Cell Distribution Width 12.5 10.0-14.5 % Platelet Count 168 130-400 10^3/uL Mean Platelet Volume 10.6 9.0-12.2 fL Immature Granulocyte % (Auto) 0 % Neutrophils (%) (Auto) 55 42-75 % Lymphocytes (%) (Auto) 34 12-44 % Monocytes (%) (Auto) 8 0-12 % Eosinophils (%) (Auto) 3 0-10 % Basophils (%) (Auto) 0 0-10 % Neutrophils # (Auto) 3.2 1.8-7.8 X 10^3 Lymphocytes # (Auto) 2.0 1.0-4.0 X 10^3 Monocytes # (Auto) 0.5 0.0-1.0 X 10^3 Eosinophils # (Auto) 0.2 0.0-0.3 10^3/uL Basophils # (Auto) 0.0 0.0-0.1 10^3/uL Immature Granulocyte # (Auto) 0.0 0.0-0.1 10^3/uL Prothrombin Time 12.6 12.2-14.7 SEC INR Comment 0.9 0.8-1.4 Activated Partial Thromboplast Time 30 24-35 SEC D-Dimer 0.30 0.00-0.49 UG/ML Sodium Level 148 H 135-145 MMOL/L Potassium Level 4.7 3.6-5.0 MMOL/L Chloride Level 108 H 98-107 MMOL/L Carbon Dioxide Level 24 21-32 MMOL/L Anion Gap 16 H 5-14 MMOL/L Blood Urea Nitrogen 12 7-18 MG/DL Creatinine 0.75 0.60-1.30 MG/DL Estimat Glomerular Filtration Rate 104 BUN/Creatinine Ratio 16 Glucose Level 177 H 70-105 MG/DL Calcium Level 8.9 8.5-10.1 MG/DL Corrected Calcium 9.0 8.5-10.1 MG/DL Magnesium Level 2.2 1.6-2.4 MG/DL Total Bilirubin 0.3 0.1-1.0 MG/DL Aspartate Amino Transf (AST/SGOT) 41 H 5-34 U/L Alanine Aminotransferase (ALT/SGPT) 54 0-55 U/L Alkaline Phosphatase 64 40-136 U/L Myoglobin 28.4 10.0-92.0 NG/ML Troponin I < 0.028 0.055 H <0.028 NG/ML Total Protein 7.2 6.4-8.2 GM/DL Albumin 3.9 3.2-4.5 GM/DL My Orders Orders - KEYON ASIF [employer] Cbc With Automated Diff (06/04/21 15:) Magnesium (06/04/21 15:27) Chest 1 View, Ap/Pa Only (06/04/21 15:) Ekg Tracing (06/04/21 15:) Comprehensive Metabolic Panel (06/04/21 15:) Myoglobin Serum (06/04/21 15:) Protime With Inr (06/04/21 15:) Partial Thromboplastin Time (06/04/21 15:) O2 (06/04/21 15:) Monitor-Rhythm Ecg Trace Only (06/04/21 15:) Lipid Panel (06/05/21 06:00) Ed Iv/Invasive Line Start (06/04/21 15:27) Troponin I (06/04/21 15:27) Lactated Ringers (Lr 1000 Ml Iv Solution (06/04/21 16:15) Fibrin Degradation Products (06/04/21 16:29) Troponin I (06/04/21 17:30) Ekg Tracing (06/04/21 17:39) Covid 19 Inhouse Test (06/04/21 18:07) Vital Signs/I&O 06/04/21 06/04/21 15:24 15:30 Temp 36.5 Pulse 110 Resp 18 B/P (MAP) 117/80 (92) O2 Delivery Room Air Departure Communication (Admissions) NAME: MARIA INES [facility] REC#: [id number] PT STATUS: REG ER : 1955 PHYSICIAN: KEYON ASIF APRN ADMIT DATE: 06/04/21/ER Draft Date of Exam:06/04/21 CHEST 1 VIEW, AP/PA ONLY Clinical indication: Patient with chest pain. Exam: Portable chest x-ray upright view. Comparisons: Chest x-ray dated 02/15/2020. Findings: Lungs/pleura: Lungs are clear. There is no pneumothorax. There is no pleural effusion. Mediastinum: Unremarkable. Pulmonary vasculature: Unremarkable. Heart: Unremarkable. Bones/extrathoracic soft tissue: There are degenerative spurs involving the thoracic spine. Impression: There is no radiographic evidence of acute cardiopulmonary process. Dictated on workstation # [id number] Dict: 06/04/21 1601 Trans: 06/04/21 1608 [facility] [id number] Interpreted by: RASHMI CROWDER MD Electronically signed by: EKG shows sinus tachycardia rate of 110 with 1 to [address] segment depression in the inferior leads without reciprocal elevation he does not have a previous EKG that I can compare. 181-Repeat EKG done at [address] segment depression in the inferior leads as was seen on the initial EKG. His repeat troponin is a little bumped. Will admit him, trend his troponin and consult Dr. Aceves from cardiology. Impression Primary Impression: Chest pain Disposition: ADMITTED INPATIENT Condition: Stable Admissions Decision to Admit Reason: Admit from ER (General) Decision to Admit/Date: Jun 04, 2021 Time/Decision to Admit Time: 18:08 Departure-Patient Inst. Referrals: CLAUDIA HERNANDEZ MD (PCP/Family) Primary Care Physician KEYON ASIF APRN Jun 04, 2021 15:31
[2021-06-04 15:46] LABS: BASOPHILS % (AUTO) 0 % (0-10); EOSINOPHILS # (AUTO) 0.2 10^3/uL (0.0-0.3); EOSINOPHILS % (AUTO) 3 % (0-10); HEMATOCRIT 42 % (40-54); HEMOGLOBIN 14.2 g/dL (13.3-17.7); LYMPHOCYTES % (AUTO) 34 % (12-44); MEAN CORPUSCULAR HEMOGLOBIN 33 pg (25-34); MEAN CORPUSCULAR HGB CONC 34 g/dL (32-36); MEAN CORPUSCULAR VOLUME 97 fL (80-99); MEAN PLATELET VOLUME 10.6 fL (9.0-12.2); MONOCYTES # (AUTO) 0.5 X 10^3 (0.0-1.0); MONOCYTES % (AUTO) 8 % (0-12); NEUTROPHILS # (AUTO) 3.2 X 10^3 (1.8-7.8); NEUTROPHILS % (AUTO) 55 % (42-75); PLATELET COUNT 168 10^3/uL (130-400); WHITE BLOOD COUNT 5.9 10^3/uL (4.3-11.0)
[2021-06-04 15:59] LABS: ALBUMIN 3.9 GM/DL (3.2-4.5); POTASSIUM 4.7 MMOL/L (3.6-5.0)
[2021-06-04 16:00] LABS: CALCIUM 8.9 MG/DL (8.5-10.1)
[2021-06-04 16:02] LABS: TOTAL PROTEIN 7.2 GM/DL (6.4-8.2)
[2021-06-04 16:03] LABS: BILIRUBIN,TOTAL 0.3 MG/DL (0.1-1.0)
[2021-06-04 16:05] LABS: CREATININE SERUM 0.75 MG/DL (0.60-1.30)
[2021-06-04 16:08] LABS: MAGNESIUM 2.2 MG/DL (1.6-2.4)
--- NOTE | 2021-06-04 16:10 | Diagnostic Imaging Report ---
Clinical indication: Patient with chest pain. Exam: Portable chest x-ray upright view. Comparisons: Chest x-ray dated 02/15/2020. Findings: Lungs/pleura: Lungs are clear. There is no pneumothorax. There is no pleural effusion. Mediastinum: Unremarkable. Pulmonary vasculature: Unremarkable. Heart: Unremarkable. Bones/extrathoracic soft tissue: There are degenerative spurs involving the thoracic spine. Impression: There is no radiographic evidence of acute cardiopulmonary process. Dictated by: Dictated on workstation # [id number]
[2021-06-04] MEDS ORDERED: LACTATED RINGERS 1,000 ML IV SCH (16:15)
[2021-06-04 16:28] LABS: INR 0.9 (0.8-1.4); PROTHROMBIN TIME PATIENT 12.6 SEC (12.2-14.7)
[2021-06-04 19:00] VITALS: BP 122/73
[2021-06-04] MEDS ORDERED: LORazepam 0.5 MG (ATIVAN) TABLET PO PRN (20:30)
[2021-06-04] MEDS ORDERED: LORazepam INJ 2 MG/ML (ATIVAN) VIAL IVP PRN (20:30)
[2021-06-04] MEDS ORDERED: HYDROcodone/APAP 5 MG/325 MG (LORTAB) TAB PO PRN (21:45)
[2021-06-04] MEDS ORDERED: DOCUSATE SODIUM 100 MG (COLACE) CAP PO PRN (21:45)
[2021-06-04] MEDS ORDERED: diphenhydrAMINE 25 MG TAB (BENADRYL) PO PRN (21:45)
[2021-06-04] MEDS ORDERED: LOPERAMIDE 2 MG (IMODIUM) TABLET PO PRN (21:45)
[2021-06-04] MEDS ORDERED: MELATONIN 3 MG TABLET PO PRN (21:45)
[2021-06-04] MEDS ORDERED: ACETAMINOPHEN 500 MG TAB (TYLENOL) PO PRN (21:45)
[2021-06-04] MEDS ORDERED: ONDANSETRON 4 MG/2 ML (SDV) Z0FRAN IVP PRN (21:45)
[2021-06-04] MEDS ORDERED: CALCIUM CARBONATE 500 MG (TUMS) TAB.CHEW PO PRN (21:45)
[2021-06-05] VITALS (12 sets, daily range): BP systolic 114–187; BP diastolic 63–93
[2021-06-05 03:15] LABS: BASOPHILS % (AUTO) 0 % (0-10); EOSINOPHILS # (AUTO) 0.2 10^3/uL (0.0-0.3); EOSINOPHILS % (AUTO) 3 % (0-10); HEMATOCRIT 40 % (40-54); HEMOGLOBIN 13.2 g/dL (13.3-17.7); LYMPHOCYTES % (AUTO) 32 % (12-44); MEAN CORPUSCULAR HEMOGLOBIN 33 pg (25-34); MEAN CORPUSCULAR HGB CONC 33 g/dL (32-36); MEAN CORPUSCULAR VOLUME 100 fL (80-99); MEAN PLATELET VOLUME 10.5 fL (9.0-12.2); MONOCYTES # (AUTO) 0.6 10^3/uL (0.0-1.0); MONOCYTES % (AUTO) 10 % (0-12); NEUTROPHILS # (AUTO) 3.3 10^3/uL (1.8-7.8); NEUTROPHILS % (AUTO) 55 % (42-75); PLATELET COUNT 140 10^3/uL (130-400); WHITE BLOOD COUNT 6.1 10^3/uL (4.3-11.0)
[2021-06-05 03:26] LABS: POTASSIUM 4.1 MMOL/L (3.6-5.0)
[2021-06-05 03:27] LABS: CALCIUM 8.8 MG/DL (8.5-10.1)
[2021-06-05 03:32] LABS: CREATININE SERUM 0.66 MG/DL (0.60-1.30)
--- NOTE | 2021-06-05 06:36 | History & Physical-Hospitalist ---
History of Present Illness HPI/Chief Complaint Chief complaint: Non-STEMI History present illness: This is a 66-year-old white male who presented with chest pain found to have elevated troponin diagnosis of non-STEMI. Dr. Aceves with cardiology has been consulted. Protocol meds given. Patient a poor historian. Patient appears to be very thin and cachectic. Source: patient, RN/MD Exam Limitations: clinical condition Date Seen 06/05/21 Time Seen by a Provider: 12:00 Attending Physician Leda Hirsch DO PCP Anthony Logan MD Referring Physician Date of Admission Jun 04, 2021 at 19:31 Home Medications & Allergies Home Medications Reviewed patient Home Medication Reconciliation performed by pharmacy medication reconciliations respiratory therapy technician and/or nursing. Patients Allergies have been reviewed. Allergies Allergies Coded Allergies No Known Drug Allergies (Unverified02/15/20) Past Difqxng-Sxhsok-Wqiaco Hx Patient Social History Marrital Status: single Employed/Student: unemployed Tobacco Use?: Yes Tobacco type used: Cigarettes Smoking Status: Former Smoker Use of E-Cig and/or Vaping dev: Yes E-Cig or Vaping type used: Nicotine Use of E-Cig and/or Vaping Julius: Current Everyday User Substance use?: No Alcohol Use?: No Pt feels they are or have been: No Immunizations Up To Date Tetanus Booster (TDap): Unknown Hepatitis A: Yes Hepatitis B: Yes Seasonal Allergies Seasonal Allergies: No Current Status Advance Directives: No Communicates: Verbally Primary Language: Brazilian Preferred Spoken Language: Brazilian Is interpretation needed?: No Past Medical History Hypertension Diabetes, Non-Insulin dep Bipolar PMHx: Difficult to obtain due to patient unable to provide DMII Behvaioral health disorder suspected given he is on olanzepine SurgHx: Unknown Family Medical History Patient reports no known family medical history. Review of Systems Constitutional: see HPI Cardiovascular: chest pain Physical Exam Physical Exam Vital Signs Vital Signs - First Documented 06/04/21 06/04/21 06/04/21 15:24 15:30 18:41 Temp 36.5 Pulse 110 Resp 18 B/P (MAP) 117/80 (92) Pulse Ox 98 O2 Delivery Room Air Capillary Refill : Less Than 3 Seconds Height, Weight, BMI Height: '" Weight: lbs. oz. kg; 20.73 BMI Method: General Appearance: No Apparent Distress, Chronically ill, Thin Eyes: Right Eye Normal Inspection, Right Eye PERRL HEENT: PERRL/EOMI, Normal ENT Inspection, Pharynx Normal, Moist Mucous Membranes Neck: Full Range of Motion, Normal Inspection, Non Tender Respiratory: Chest Non Tender, Lungs Clear, Normal Breath Sounds, No Accessory Muscle Use, No Respiratory Distress Cardiovascular: Regular Rate, Rhythm, No Edema, No Gallop, No JVD, No Murmur, Normal Peripheral Pulses Gastrointestinal: Normal Bowel Sounds, No Organomegaly, No Pulsatile Mass, Non Tender, Soft Back: Normal Inspection, No CVA Tenderness, No Vertebral Tenderness Extremity: Normal Capillary Refill, Normal Inspection, Normal Range of Motion, Non Tender, No Calf Tenderness, No Pedal Edema Neurologic/Psychiatric: Alert, Oriented x3, No Motor/Sensory Deficits, Normal Mood/Affect Skin: Normal Color, Warm/Dry Lymphatic: No Adenopathy Results Results/Procedures Labs Laboratory Tests 06/04/21 15:24 06/05/21 02:55 Patient resulted labs reviewed. Assessment/Plan Admission Diagnosis Assessment: Non-STEMI Diabetes Hypertension Cachexia Debility Plan: Cardiology consult Admission Status: Inpatient Order (span 2 midnights) Reason for Inpatient Admission: Non-STEMI Clinical Quality Measures AMI/AHF: ASA po Prior to arrival: LEDA Jain DO Jun 05, 2021 06:36
[2021-06-05] MEDS ORDERED: ROSUVASTATIN 20 MG (CRESTOR) TABLET PO NR (09:00)
[2021-06-05] MEDS ORDERED: CATHETER FLUSH 10 ML SYR IV PRN (09:15)
[2021-06-05] MEDS ORDERED: NS IV 1000 ML 1,000 ML IV ONE (09:15)
--- NOTE | 2021-06-05 09:17 | Consultation-Cardiology ---
HPI-Cardiology Cardiology Consultation: Date of Consultation 06/05/2021 Date of Admission 06/04/2021 Attending Physician Leda Hirsch DO Admitting Physician Claudia Logan MD Consulting Physician CLAUDIA CADE JR, MD HPI: Time Seen by a Provider: 09:13 Chief Complaint: Reason for consultation: Chest pain with elevated troponin. I had the pleasure of seeing Christiano in the intensive care unit at [facility] this morning. He has no known history of coronary artery disease. He lives in independent living at [facility]. He has cardiac risk factors of type 2 diabetes mellitus and cigarette smoking. He was in his usual state of health until yesterday when he developed substernal chest discomfort with radiation to his left arm. He notified somebody at the [facility] facility who called EMS and he was brought to the hospital for further evaluation. EMS gave him aspirin and sublingual nitroglycerin and by the time he arrived in the emergency room, his chest discomfort have resolved. His initial electrocardiogram showed sinus rhythm with inferior ST depression. An electrocardiogram obtained short while later showed sinus rhythm with resolution of the inferior ST depression. His initial troponin level was undetectable. He was admitted to the hospital. Overnight, his troponin levels have gradually become elevated. When I saw the patient, he was not complaining of any chest or arm pain. He denies any previous history of chest pain. He denies dyspnea, paroxysmal nocturnal dyspnea, orthopnea, palpitations, lightheadedness, syncope, or ankle edema. From what I can tell, he smokes electronic cigarettes. Certain portions of this document may have been dictated utilizing voice recognition technology. Inherent to this technology, typographical and grammatical errors may exist. As much as I am diligent to identify and correct these mistakes, some errors may remain in the document. Review of Systems-Cardiology Review of Systems Other comments Review of 10 organ systems is as per the history of present illness, otherwise negative. RPX-Sdbbsi-Bqvjft Hx Patient Social History Marrital Status: Employed/Student: unemployed Smoking Status: Current Everyday Smoker Have you traveled recently?: No Alcohol Use?: No Pt feels they are or have been: No Tobacco type used: Cigarettes Immunizations Up To Date Tetanus Booster (TDap): Unknown Past Medical History PMH As described under Assessment. Family Medical History Family Medical History: The patient does not know of any family history of premature coronary artery disease. Family History: Patient reports no known family medical history. Allergies and Home Medications Allergies Coded Allergies: No Known Drug Allergies (Unverified , 02/15/20) Home Medications Canagliflozin 300 Mg Tablet, 300 MG PO DAILY, (Reported) Metformin HCl 500 Mg Tablet, 1,000 MG PO BID, (Reported) TAKES 2 (500MG) TABS TWICE DAILY Olanzapine 10 Mg Tablet, 20 MG PO DAILY, (Reported) TAKES 2 (10MG) TABS Oseltamivir Phosphate 75 Mg Cap, 75 MG PO BID Prescribed by: CLAUDIO COOK on 02/17/20 1030 Polyethylene Glycol 3350 17 Gm Powd.pack, 17 GM PO TID PRN for CONSTIPATION-1ST LINE Prescribed by: CLAUDIO COOK on 02/17/20 1030 Patient Home Medication List Home Medication List Reviewed: Yes Exam Vital Signs Vital Signs Date Time Temp Pulse Resp B/P (MAP) Pulse Ox O2 Delivery O2 Flow Rate FiO2 06/05/21 08:03 Room Air 06/05/21 08:00 34.9 57 12 160/73 (102) 99 Physical Exam General: Alert. No acute distress. Well nourished and appears stated age. Eye: Extraocular movements are intact. Conjunctivae are clear. There are no xanthelasma. HENT: Normocephalic. Atraumatic. Carotid pulsations 2/2 without bruits. He has seborrheic keratosis. Neck: Jugular venous pressure does not appear elevated. No thyromegaly appreciated. Respiratory: Lungs are clear to auscultation. Respirations are non-labored. Breath sounds are equal. Symmetrical chest wall expansion. Cardiovascular: Normal rate. Regular rhythm. No murmur. No gallop. Point of maximal impulse is not appear displaced. Good pulses equal in all extremities. No edema. Gastrointestinal: Soft. Normal bowel sounds. Skin: Skin turgor is normal. There is no pallor. Musculoskeletal: No kyphosis or scoliosis appreciated. Neurologic: Alert and oriented to person but not place or time. He does know he is in a hospital. Cranial nerves 3-12 appear grossly intact. The patient has good motor tone strength in the upper and lower extremities bilaterally. Psychiatric: Cooperative. Appropriate mood & affect. Labs Laboratory Tests Test 06/04/21 15:24 8/14/21 17:20 06/04/21 18:11 06/05/21 02:55 Range/Units White Blood Count 5.9 6.1 4.3-11.0 10^3/uL Red Blood Count 4.29 L 3.95 L 4.30-5.52 10^6/uL Hemoglobin 14.2 13.2 L 13.3-17.7 g/dL Hematocrit 42 40 40-54 % Mean Corpuscular Volume 97 100 H 80-99 fL Mean Corpuscular Hemoglobin 33 33 25-34 pg Mean Corpuscular Hemoglobin Concent 34 33 32-36 g/dL Red Cell Distribution Width 12.5 12.4 10.0-14.5 % Platelet Count 168 140 130-400 10^3/uL Mean Platelet Volume 10.6 10.5 9.0-12.2 fL Immature Granulocyte % (Auto) 0 0 % Neutrophils (%) (Auto) 55 55 42-75 % Lymphocytes (%) (Auto) 34 32 12-44 % Monocytes (%) (Auto) 8 10 0-12 % Eosinophils (%) (Auto) 3 3 0-10 % Basophils (%) (Auto) 0 0 0-10 % Neutrophils # (Auto) 3.2 3.3 1.8-7.8 10^3/uL Lymphocytes # (Auto) 2.0 2.0 1.0-4.0 10^3/uL Monocytes # (Auto) 0.5 0.6 0.0-1.0 10^3/uL Eosinophils # (Auto) 0.2 0.2 0.0-0.3 10^3/uL Basophils # (Auto) 0.0 0.0 0.0-0.1 10^3/uL Immature Granulocyte # (Auto) 0.0 0.0 0.0-0.1 10^3/uL Prothrombin Time 12.6 12.2-14.7 SEC INR Comment 0.9 0.8-1.4 Activated Partial Thromboplast Time 30 24-35 SEC D-Dimer 0.30 0.00-0.49 UG/ML Sodium Level 148 H 146 H 135-145 MMOL/L Potassium Level 4.7 4.1 3.6-5.0 MMOL/L Chloride Level 108 H 110 H 98-107 MMOL/L Carbon Dioxide Level 24 24 21-32 MMOL/L Anion Gap 16 H 12 5-14 MMOL/L Blood Urea Nitrogen 12 15 7-18 MG/DL Creatinine 0.75 0.66 0.60-1.30 MG/DL Estimat Glomerular Filtration Rate 104 120 BUN/Creatinine Ratio 16 23 Glucose Level 177 H 138 H 70-105 MG/DL Calcium Level 8.9 8.8 8.5-10.1 MG/DL Corrected Calcium 9.0 8.5-10.1 MG/DL Magnesium Level 2.2 1.6-2.4 MG/DL Total Bilirubin 0.3 0.1-1.0 MG/DL Aspartate Amino Transf (AST/SGOT) 41 H 5-34 U/L Alanine Aminotransferase (ALT/SGPT) 54 0-55 U/L Alkaline Phosphatase 64 40-136 U/L Myoglobin 28.4 10.0-92.0 NG/ML Troponin I < 0.028 0.055 H 0.120 H <0.028 NG/ML Total Protein 7.2 6.4-8.2 GM/DL Albumin 3.9 3.2-4.5 GM/DL SARS-CoV-2 RNA (RT-PCR) Not Detected Not Detecte Triglycerides Level 39 <150 MG/DL Cholesterol Level 135 < 200 MG/DL LDL Cholesterol Direct 89 1-129 MG/DL VLDL Cholesterol 8 5-40 MG/DL HDL Cholesterol 44 40-60 MG/DL ECG Impression ECG Comment Initial electrocardiogram in the emergency room showed sinus rhythm with approximately [address] depression. Follow-up chest x-ray in the emergency room showed sinus rhythm with resolution of the ST depression. Diagnosis/Problems Diagnosis/Problems (1) Non-ST elevation myocardial infarction (NSTEMI), initial care episode Assessment & Plan: He appears to be suffering a non-ST elevation myocardial infarction. He had dynamic ECG changes in the emergency room. Fortunately, his chest discomfort has now resolved. Nonetheless, his troponin levels are trending upwards. As such, I recommend further evaluation with an urgent cardi ac catheterization. I did need to see the patient and do my consultation in order to determine whether or not he was a candidate and needed cardiac catheterization. Unfortunately, he ate breakfast this morning so we will need to hold off for a few hours before performing the test. In the interim, I will start him on statin medication and beta-srinath. I will obtain an echocardio gram prior to the cardiac catheterization. Since he is currently pain-free, I will hold off on giving him therapeutic dose anticoagulation until we perform the cardiac catheterization. However, I did order another troponin level to be done now. If this is further elevated, then I will start him on intravenous heparin. I will hold off on giving him a P2Y12 inhibitor until we have the results of the cardiac catheterization. (2) Diabetes mellitus, type 2 Status: Chronic Assessment & Plan: This will be managed by the hospitalist. I have taken the liberty of adding an HbA1c to his blood sample from this morning. We will need to hold the Metformin for 48 hours following the cardiac catheterization. (3) Cigarette smoker Assessment & Plan: Cigarette smoking cessation was strongly encouraged. CLAUDIA CADE JR, MD Jun 05, 2021 09:17
[2021-06-05] MEDS ORDERED: METOCLOPRAMIDE INJ 10 MG/2 ML (REGLAN) IVP NR (09:30)
[2021-06-05] MEDS: NICOTINE 14 MG (NICODERM) PATCH TD SCH (09:39)
[2021-06-05] MEDS: ENOXAPARIN 40 MG/0.4 ML (LOVENOX) SYR SC SCH (09:39)
[2021-06-05] MEDS: ASPIRIN E.C. 81 MG (ECOTRIN) TAB PO SCH (09:39)
[2021-06-05] MEDS: SENNA W/DOCUSATE (SENOKOT S) TABLET PO SCH ×2 (09:39→19:39)
--- NOTE | 2021-06-05 10:31 | Tele-ICU Progress Note ---
Progress Note video rounds completed 66 y/o with NSTEMI and rising troponin Chest pain resolved Hemodynamically normal Cardiology on consult and plans for cath today Focused Exam Height, Weight, BMI Height: '" Weight: lbs. oz. kg; 20.73 BMI Method: JULIO SINGH MD Jun 05, 2021 10:31
[2021-06-05] MEDS: OLANZapine 5 MG (ZyPREXA) TAB PO SCH ×2 (11:13→19:39)
[2021-06-05] MEDS ORDERED: VERAPAMIL 5 MG/2 ML (CALAN) VIAL IV ONE (13:39)
[2021-06-05] MEDS ORDERED: LIDOCAINE 1% INJ 20 ML 20 ML VIAL ONE (13:40)
[2021-06-05] MEDS ORDERED: HEParin 1000 UNIT/ML (10ML VIAL) FOR BOLUS ONE (13:40)
[2021-06-05] MEDS ORDERED: NITRO DRIP 25000 MCG/D5W 0 ML IV ONE (13:40)
[2021-06-05] MEDS ORDERED: MIDAZOLAM 5 MG/5 ML (VERSED) VIAL ONE (13:40)
[2021-06-05] MEDS ORDERED: HEParin (CATH LAB) 2,000 ML IV ONE (13:40)
[2021-06-05] MEDS ORDERED: NS IV 1000 ML 1,000 ML ONE (13:40)
[2021-06-05] MEDS ORDERED: fentaNYL INJ 100 MCG/2 ML AMP ONE (13:41)
[2021-06-05] MEDS ORDERED: NITRO DRIP 25000 MCG/D5W 250 ML IV ONE (13:46)
--- NOTE | 2021-06-05 14:14 | Pre-Op Note & Conscious Sedat ---
Pre-Operative Progress Note H&P Reviewed The H&P was reviewed, patient examined and no changes noted. Date H&P Reviewed: Jun 05, 2021 Time H&P Reviewed: 14:13 Pre-Op Diagnosis: NSTEMI Conscious Sedation Pre-Proced ASA Score 3 For ASA 3 and 4: Consider anesthesia and medical clearance. Also, for patients with a history of failed moderate sedation consider anesthesia. Airway Lungs Heart ASA score ASA 1: a normal healthy patient ASA 2: a patient with a mild systemic disease (mid diabetes, controlled hypertension, obesity ASA 3: a patient with a severe systemic disease that limits activity (angina, COPD, prior Myocardial infarction) ASA 4: a patient with an incapacitating disease that is a constant threat to life (CHF, renal failure) ASA 5: a moribund patient not expected to survive 24 hrs. (ruptured aneurysm) ASA 6: a declared brain- patient whose organs are being harvested. For emergent operations, add the letter E after the classification Mallampati Classification Grade 1 Sedation Plan Analgesia, Amnesia, Plan communicated to team members, Discussed options with patient/fam, Discussed risks with patient/fam The patient is an appropriate candidate to undergo the planned procedure, sedation, and anesthesia. The patient immediately re-assessed prior to indication. CLAUDIA CADE JR, MD Jun 05, 2021 14:14
--- NOTE | 2021-06-05 15:10 | Cardiac Cath Report ---
CARDIAC CATHETERIZATION DATE OF PROCEDURE: 06/05/2021 INDICATION: Non-ST elevation myocardial infarction. HISTORY: The patient is a 66 year old male with no previously known history of coronary artery disease. He was in his usual state of health until yesterday when he developed substernal chest discomfort at rest. EMS was called and he was given aspirin and nitroglycerin in the field. He was taken to the emergency room for further evaluation. By the time he arrived in the emergency room, his chest discomfort had resolved. His initial troponin level was undetectable. However, overnight, his troponin levels had risen. As such, he is now referred for further evaluation with a cardiac catheterization. PROCEDURES PERFORMED: 1. Left heart catheterization with hemodynamic measurements. 2. Diagnostic [place] coronary angiography. PROCEDURE DESCRIPTION: After informed consent and in the fasting state, left heart catheterization was performed through the right radial artery utilizing a 6 Kazakh system by percutaneous approach. Standard 5 Kazakh Emmanuel catheters were utilized for the diagnostic portion of the procedure. All catheters were exchanged over a guidewire. Following the procedure, a vascular band was applied to the right wrist and the radial sheath was removed. RESULTS: HEMODYNAMICS: The aortic pressure was 124/62 mmHg. The left ventricular p ressure was 128/0 mmHg with a left ventricular end-diastolic pressure of 8 mmHg. There was no significant pressure gradient upon pullback across the aortic valve. CORONARY ANGIOGRAPHY: The coronary arteries were moderately calcified. Left main coronary artery: There was a long 70-80% stenosis distally which formed a bifurcation lesion with the left anterior descending and left c ircumflex coronary arteries with a De La Torre classification of 1, 1, 1. There was TATUM-3 flow beyond the bifurcation. Left anterior descending coronary artery: There was an 80% stenosis in the ostium and mild diffuse disease distally with TATUM-3 flow. There was a small first diagonal branch which contained a 70% stenosis proximally but this was no more than a 2 mm vessel. There was a moderate sized second diagonal branch which was subtotally occluded proximally (99%) and contained diffuse disease distally. This branch extends all the way out to the distal lateral wall. There was TATUM-1 flow. Left circumflex coronary artery: The left circumflex coronary artery was essentially 2 obtuse marginal branches. The first obtuse marginal branch contained mild diffuse disease. The second obtuse marginal branch was subtotally occluded (99%) with diffuse disease distally and TATUM-1 flow. Right coronary artery: Dominant and contained mild irregularities in the proximal and mid segment with a 70% stenosis distally in between the takeoff of the posterior descending artery and posterolateral branch. The posterior descending artery and posterolateral branches had moderate to severe diffuse disease as well as a 70% stenosis in the proximal third of the posterior descen ding artery and a 70% stenosis in the mid segment of the largest posterolateral branch. There was TATUM-2 flow. IMPRESSION: 1. Normal left heart pressures. 2. Severe calcific three-vessel coronary artery disease with a distal left main stenosis as outlined above. 3. The patient is known to have normal left ventricular systolic function with an estimated ejection fraction of 55-60% by echocardiogram performed earlier today. CLAUDIA CADE JR, MD Jun 05, 2021 15:10
[2021-06-05] MEDS ORDERED: NS IV 1000 ML 1,000 ML IV SCH ×2 (15:15)
[2021-06-05] MEDS ORDERED: PATIENT MAY USE OWN MEDS, ALL PO SCH (15:15)
[2021-06-05] MEDS ORDERED: CLOPIDOGREL 300 MG (PLAVIX) TABLET PO ONE ×2 (19:00→19:35)
[2021-06-05] MEDS ORDERED: PANTOPRAZOLE 40 MG (PROTONIX) TAB PO ONE ×2 (19:00→19:36)
[2021-06-06] VITALS (13 sets, daily range): BP systolic 116–165; BP diastolic 63–106
[2021-06-06 03:58] LABS: HEMOGLOBIN 12.3 g/dL (13.3-17.7); MEAN PLATELET VOLUME 10.4 fL (9.0-12.2)
[2021-06-06 04:14] LABS: POTASSIUM 3.8 MMOL/L (3.6-5.0)
[2021-06-06 04:15] LABS: CALCIUM 8.6 MG/DL (8.5-10.1)
[2021-06-06 04:19] LABS: CREATININE SERUM 0.7 MG/DL (0.60-1.30)
[2021-06-06] MEDS: NICOTINE 14 MG (NICODERM) PATCH TD SCH (09:09)
[2021-06-06] MEDS: PANTOPRAZOLE 40 MG (PROTONIX) TAB PO SCH (09:10)
[2021-06-06] MEDS: ASPIRIN E.C. 81 MG (ECOTRIN) TAB PO SCH (09:10)
[2021-06-06] MEDS: SENNA W/DOCUSATE (SENOKOT S) TABLET PO SCH ×2 (09:10→20:11)
[2021-06-06] MEDS: CLOPIDOGREL 75 MG (PLAVIX) TABLET PO SCH (09:11)
[2021-06-06] MEDS: NICOTINE PATCH REMOVAL TP SCH (09:13)
[2021-06-06] MEDS: ENOXAPARIN 40 MG/0.4 ML (LOVENOX) SYR SC SCH (09:21)
--- NOTE | 2021-06-06 10:42 | Progress Note ---
Subjective Subjective/Events-last exam Patient denies concerns, but is unable to explain why he is in the hospital. Objective Exam Last Set of Vital Signs Vital Signs Date Time Temp Pulse Resp B/P (MAP) Pulse Ox O2 Delivery O2 Flow Rate FiO2 06/06/21 08:15 36.5 54 15 122/63 (82) 97 Room Air Capillary Refill : Less Than 3 Seconds I&O Intake and Output 06/06/21 00:00 Intake Total 1410 ml Output Total 775 ml Balance 635 ml Intake Oral 1410 ml Output Urine Total 775 ml # Voids 1 General: Alert, No Acute Distress Lungs: Clear to Auscultation, Normal Air Movement Heart: Regular Rate, No Murmurs Abdomen: Normal Bowel Sounds, Soft Psych/Mental Status: Other (oriented to self and location, year) Results/Procedures Lab Laboratory Tests 06/06/21 03:30: White Blood Count 5.0, Red Blood Count 3.72L, Hemoglobin 12.3L, Hematocrit 37L, Mean Corpuscular Volume 100H, Mean Corpuscular Hemoglobin 33, Mean Corpuscular Hemoglobin Concent 33, Red Cell Distribution Width 12.3, Platelet Count 126L, Mean Platelet Volume 10.4, Percent Immature Platelet Fraction 2.5, Sodium Level 142, Potassium Level 3.8, Chloride Level 112H, Carbon Dioxide Level 22, Anion Gap 8, Blood Urea Nitrogen 18, Creatinine 0.70, Estimat Glomerular Filtration Rate 112, BUN/Creatinine Ratio 26, Glucose Level 213H, Calcium Level 8.6 Assessment/Plan Assessment/Plan Assessment & Plan Non-STEMI- appreciate Cardiology recommendations, had cardiac catheterization showing severe three vessel disease, unclear whether bypass will be pursued Diabetes- resume home dapagliflozin, holding metformin due to recent cath Hypertension- resume home lisinopril Altered mental status- sounds like it may be baseline, per nursing family reports he has been having progressive worsening. Minimize lines, reorient as needed. DVT prophylaxis- enoxaparin Clinical Quality Measures AMI/AHF: ASA po Prior to arrival: CLAUDIO Ye MD Jun 06, 2021 10:42
[2021-06-06] MEDS ORDERED: POLY17PO6 PO (11:55)
[2021-06-06] MEDS ORDERED: DAPA10TA PO (11:55)
[2021-06-06] MEDS ORDERED: ACET325C7 PO (11:55)
[2021-06-06] MEDS ORDERED: LISI20TA26 PO (11:55)
--- NOTE | 2021-06-06 12:24 | Cardiology Progress Note ---
Progress Note-Cardiology Events since last exam Date Seen by Provider: Jun 06, 2021 Time Seen by Provider: 12:23 Events since last exam I am seeing him for coronary artery disease with an NSTEMI. He was sitting up in bed eating lunch. He denies recurrent chest discomfort. He denies dyspnea, palpitations, syncope, or ankle edema. He is not sure if he would want to have open heart surgery. Certain portions of this document may have been dictated utilizing voice recognition technology. Inherent to this technology, typographical and grammatical errors may exist. As much as I am diligent to identify and correct these mistakes, some errors may remain in the document. Vitals Last set of Vitals Signs Vital Signs 06/06/21 06/06/21 06/06/21 11:48 12:00 12:12 Temp 36.3 Pulse 57 Resp 16 B/P (MAP) 165/81 (109) Pulse Ox 100 O2 Delivery Room Air Labs Labs Laboratory Tests 06/06/21 03:30 Exam Vital Signs Vital Signs Date Time Temp Pulse Resp B/P (MAP) Pulse Ox O2 Delivery O2 Flow Rate FiO2 06/06/21 12:12 57 06/06/21 12:00 16 165/81 (109) 100 Room Air 06/06/21 11:48 36.3 Physical Exam General: Alert. No acute distress. He is disheveled. Eye: No xanthelasma. HENT: Normocephalic. Neck: Jugular venous pressure does not appear elevated. Respiratory: Lungs are clear to auscultation. Respirations are non-labored. Breath sounds are equal. Symmetrical chest wall expansion. Cardiovascular: Normal rate. Regular rhythm. No murmur. No gallop. No edema. Gastrointestinal: Soft. Normal bowel sounds. Skin: Warm. Dry. Neurologic: Alert and oriented to person, place, time. Cranial nerves 3-11 grossly intact. Psychiatric: Cooperative. Appropriate mood & affect. Labs Laboratory Tests Test 06/06/21 03:30 Range/Units White Blood Count 5.0 4.3-11.0 10^3/uL Red Blood Count 3.72 L 4.30-5.52 10^6/uL Hemoglobin 12.3 L 13.3-17.7 g/dL Hematocrit 37 L 40-54 % Mean Corpuscular Volume 100 H 80-99 fL Mean Corpuscular Hemoglobin 33 25-34 pg Mean Corpuscular Hemoglobin Concent 33 32-36 g/dL Red Cell Distribution Width 12.3 10.0-14.5 % Platelet Count 126 L 130-400 10^3/uL Mean Platelet Volume 10.4 9.0-12.2 fL Percent Immature Platelet Fraction 2.5 0.0-7.6 % Sodium Level 142 135-145 MMOL/L Potassium Level 3.8 3.6-5.0 MMOL/L Chloride Level 112 H 98-107 MMOL/L Carbon Dioxide Level 22 21-32 MMOL/L Anion Gap 8 5-14 MMOL/L Blood Urea Nitrogen 18 7-18 MG/DL Creatinine 0.70 0.60-1.30 MG/DL Estimat Glomerular Filtration Rate 112 BUN/Creatinine Ratio 26 Glucose Level 213 H 70-105 MG/DL Calcium Level 8.6 8.5-10.1 MG/DL Diagnosis/Problems Diagnosis/Problems (1) Non-ST elevation myocardial infarction (NSTEMI), initial care episode Assessment & Plan: His cardiac catheterization from 06/05 showed severe three-ve ssel coronary disease involving the distal left main coronary artery. This is typically surgical disease. However, given his social issues, coupled with his schizoaffective disorder, he may not be an ideal candidate for coronary bypass surgery. Since he has not had any recurrent chest discomfort, I have him on guideline directed medical therapy with aspirin, clopidogrel, beta-srinath, and statin medication. My plan would be for stabilizing him medically and ultimately discharging him to home. Then I would plan on an outpatient surgical consultation for consideration of bypass surgery. If he is turned down, then we could either consider ongoing medical therapy versus high risk percutaneous coronary intervention (2) Coronary artery disease with unstable angina pectoris Assessment & Plan: As above, he suffered a non-ST elevation microinfarction and has severe three-vessel coronary artery disease. I did start him on clopidogrel yesterday since I will attempt to initially manage him medically as an outpatient once he is ready for discharge. As you know, his echocardiogram showed a normal ejection fraction. (3) Primary hypertension Assessment & Plan: He does not carry a diagnosis of hypertension but has had elevated blood pressures here in the hospital. I will continue to titrate his medication to get his blood pressure under control. (4) Mixed hyperlipidemia Assessment & Plan: I started intensive dose statin in light of the acute myocardial infarction. He will need a follow-up lipid panel 6 weeks after discharge. (5) Schizoaffective disorder Assessment & Plan: This will certainly need to be taken into consideration when we consider evaluating him for any sort of coronary revascularization procedure. (6) Cigarette smoker Assessment & Plan: Cigarette smoking cessation was strongly encouraged. (7) Diabetes mellitus, type 2 Status: Chronic Assessment & Plan: This will be managed by the hospitalist. He will need to hold Metformin for 48 hours following the cardiac catheterization. CLAUDIA CADE JR, MD Jun 06, 2021 12:24
[2021-06-06] MEDS ORDERED: lisINopril 10 MG (PRINIVIL) TABLET PO ONE (12:30)
[2021-06-06] MEDS: OLANZapine 5 MG (ZyPREXA) TAB PO SCH (20:11)
[2021-06-06] MEDS ORDERED: ROSUVASTATIN 20 MG (CRESTOR) TABLET PO SCH (21:00)
[2021-06-07 02:58] LABS: HEMATOCRIT 36 % (40-54); MEAN CORPUSCULAR HEMOGLOBIN 33 pg (25-34); MEAN CORPUSCULAR HGB CONC 33 g/dL (32-36); MEAN CORPUSCULAR VOLUME 98 fL (80-99); MEAN PLATELET VOLUME 10.3 fL (9.0-12.2); PLATELET COUNT 138 10^3/uL (130-400)
[2021-06-07 03:18] LABS: POTASSIUM 3.9 MMOL/L (3.6-5.0)
[2021-06-07 03:19] LABS: CALCIUM 8.5 MG/DL (8.5-10.1)
[2021-06-07 03:24] LABS: CREATININE SERUM 0.71 MG/DL (0.60-1.30)
[2021-06-07 03:45] VITALS: BP 125/62
[2021-06-07 08:00] VITALS: BP 163/88
[2021-06-07] MEDS: PANTOPRAZOLE 40 MG (PROTONIX) TAB PO SCH (08:15)
[2021-06-07] MEDS: CLOPIDOGREL 75 MG (PLAVIX) TABLET PO SCH (08:15)
[2021-06-07] MEDS: ENOXAPARIN 40 MG/0.4 ML (LOVENOX) SYR SC SCH (08:16)
[2021-06-07] MEDS: SENNA W/DOCUSATE (SENOKOT S) TABLET PO SCH (08:16)
[2021-06-07] MEDS: NICOTINE 14 MG (NICODERM) PATCH TD SCH (08:16)
[2021-06-07] MEDS: ASPIRIN E.C. 81 MG (ECOTRIN) TAB PO SCH (08:16)
[2021-06-07] MEDS: NICOTINE PATCH REMOVAL TP SCH (08:16)
[2021-06-07] MEDS ORDERED: NON-FORMULARY MEDICATION 1 EA EA (Dapagliflozin Propanediol (Farxiga) 10 MG) PO SCH (09:00)
[2021-06-07] MEDS ORDERED: lisINopril 10 MG (PRINIVIL) TABLET PO SCH (09:00)
--- NOTE | 2021-06-07 09:43 | Cardiology Progress Note ---
Progress Note-Cardiology Events since last exam Date Seen by Provider: Jun 07, 2021 Time Seen by Provider: 09:39 Events since last exam I am seeing him due to NSTEMI. He denies any further chest discomfort. He denies dyspnea, palpitations, syncope, or ankle edema. He wants to go home today. Certain portions of this document may have been dictated utilizing voice recognition technology. Inherent to this technology, typographical and grammatical errors may exist. As much as I am diligent to identify and correct these mistakes, some errors may remain in the document. Vitals Last set of Vitals Signs Vital Signs 06/07/21 06/07/21 08:00 08:40 Temp 37.1 Pulse 56 Resp 18 B/P (MAP) 163/88 (113) Pulse Ox 98 O2 Delivery Room Air Labs Labs Laboratory Tests 06/07/21 02:45 Exam Vital Signs Vital Signs Date Time Temp Pulse Resp B/P (MAP) Pulse Ox O2 Delivery O2 Flow Rate FiO2 06/07/21 08:40 98 Room Air 06/07/21 08:00 37.1 56 18 163/88 (113) Physical Exam General: Alert. No acute distress. He is disheveled. Eye: No xanthelasma. HENT: Normocephalic. Neck: Jugular venous pressure does not appear elevated. Respiratory: Lungs are clear to auscultation. Respirations are non-labored. Breath sounds are equal. Symmetrical chest wall expansion. Cardiovascular: Normal rate. Regular rhythm. No murmur. No gallop. No edema. Gastrointestinal: Soft. Normal bowel sounds. Skin: Warm. Dry. Neurologic: Alert and oriented to person and place but not time. Cranial nerves 3-11 grossly intact. Psychiatric: Cooperative. He continues to get out of bed and try to move around the room without assistance. Labs Laboratory Tests Test 06/07/21 02:45 Range/Units White Blood Count 4.0 L 4.3-11.0 10^3/uL Red Blood Count 3.66 L 4.30-5.52 10^6/uL Hemoglobin 12.0 L 13.3-17.7 g/dL Hematocrit 36 L 40-54 % Mean Corpuscular Volume 98 80-99 fL Mean Corpuscular Hemoglobin 33 25-34 pg Mean Corpuscular Hemoglobin Concent 33 32-36 g/dL Red Cell Distribution Width 12.0 10.0-14.5 % Platelet Count 138 130-400 10^3/uL Mean Platelet Volume 10.3 9.0-12.2 fL Sodium Level 139 135-145 MMOL/L Potassium Level 3.9 3.6-5.0 MMOL/L Chloride Level 107 98-107 MMOL/L Carbon Dioxide Level 21 21-32 MMOL/L Anion Gap 11 5-14 MMOL/L Blood Urea Nitrogen 17 7-18 MG/DL Creatinine 0.71 0.60-1.30 MG/DL Estimat Glomerular Filtration Rate 111 BUN/Creatinine Ratio 24 Glucose Level 218 H 70-105 MG/DL Calcium Level 8.5 8.5-10.1 MG/DL Diagnosis/Problems Diagnosis/Problems (1) Non-ST elevation myocardial infarction (NSTEMI), initial care episode Assessment & Plan: His cardiac catheterization from 06/05 showed severe three- vessel coronary disease involving the distal left main coronary artery. This is typically surgical disease. However, given his social issues, coupled with his schizoaffective disorder, he may not be an ideal candidate for coronary bypass surgery. Since he has not had any recurrent chest discomfort, I have him on guideline directed medical therapy with aspirin, clopidogrel, beta-srinath, and statin medication. From a cardiac standpoint he can be discharged home today. I have asked his nurse to get him an appointment to see me in my office in 2 weeks. Then I will plan on an outpatient surgical consultation for consideration of coronary bypass surgery. If he is turned down for coronary bypass surgery, then we could either consider ongoing medical therapy versus high risk percutaneous coronary intervention. (2) Coronary artery disease with unstable angina pectoris Assessment & Plan: As above, he suffered a non-ST elevation microinfarction and has severe three-vessel coronary artery disease. I did start him on clopidogrel 06/05 since I will attempt to initially manage him medically as an outpatient. I should note, his echocardiogram showed a normal ejection fraction with no significant valvular heart disease. (3) Primary hypertension Assessment & Plan: He does not carry a diagnosis of hypertension but has had elevated blood pressures here in the hospital. His blood pressure was elevated again this morning. I will increase his dose of lisinopril and give him an extra dose this morning. (4) Mixed hyperlipidemia Assessment & Plan: Continue intensive dose statin in light of the acute myocardial infarction. He will need a follow-up lipid panel 6 weeks after discharge. (5) Schizoaffective disorder Assessment & Plan: This will certainly need to be taken into consideration when we consider evaluating him for any sort of coronary revascularization procedure. (6) Cigarette smoker Assessment & Plan: Cigarette smoking cessation was strongly encouraged. (7) Diabetes mellitus, type 2 Status: Chronic Assessment & Plan: This is being managed by the hospitalist. He is now 48 hours from the cardiac catheterization and can resume his Metformin if appropriate. CLAUDIA CADE JR, MD Jun 07, 2021 09:43
[2021-06-07] MEDS ORDERED: lisINopril 40 MG (PRINIVIL) TABLET PO ONE (09:45)
[2021-06-07 12:00] VITALS: BP 181/97
[2021-06-07] MEDS ORDERED: CLOP75TA28 PO (12:10)
[2021-06-07] MEDS ORDERED: ROSU20TA32 PO (12:10)
[2021-06-07] MEDS ORDERED: ASPI-1238 PO (12:10)
--- NOTE | 2021-06-07 12:10 | Discharge Summary ---
Discharge Summary Hospital Course Hospital Course Date of Admission: Jun 04, 2021 at 19:31 Admission Diagnosis : Family Physician/Provider: Anthony Logan MD Date of Discharge: 06/07/21 Discharge Diagnosis: Non-STEMI- appreciate Cardiology recommendations, had cardiac catheterization showing severe three vessel disease, unclear whether bypass will be pursued, he was discharged with medical management and can follow up to discuss possibility of bypass outpatient. Diabetes- resume home dapagliflozin, held metformin inpatient due to recent cath Hypertension- resume home lisinopril Altered mental status- sounds like it may be baseline, per nursing family rep orts he has been having progressive worsening. Oriented to self, location and year on day of d/c. Hospital Course: See discharge diagnosis Labs and Pending Lab Test: Laboratory Tests 06/07/21 02:45: White Blood Count 4.0L, Red Blood Count 3.66L, Hemoglobin 12.0L, Hematocrit 36L, Mean Corpuscular Volume 98, Mean Corpuscular Hemoglobin 33, Mean Corpuscular Hemoglobin Concent 33, Red Cell Distribution Width 12.0, Platelet Count 138, Mean Platelet Volume 10.3, Sodium Level 139, Potassium Level 3.9, Chloride Level 107, Carbon Dioxide Level 21, Anion Gap 11, Blood Urea Nitrogen 17, Creatinine 0.71, Estimat Glomerular Filtration Rate 111, BUN/Creatinine Ratio 24, Glucose Level 218H, Calcium Level 8.5 Home Meds Active Reported Tylenol (Acetaminophen) 325 Mg Capsule 650 Mg PO Q6H PRN Miralax (Polyethylene Glycol 3350) 17 Gm Powd.pack 17 Gm PO Q8H PRN Lisinopril 20 Mg Tablet 20 Mg PO DAILY Farxiga (Dapagliflozin Propanediol) 10 Mg Tablet 10 Mg PO DAILY Olanzapine 10 Mg Tablet 20 Mg PO DAILY TAKES 2 (10MG) TABS Metformin HCl 500 Mg Tablet 1,000 Mg PO BID TAKES 2 (500MG) TABS TWICE DAILY Assessment/Pt DC Instructions Follow up with Cardiology as directed Follow up with primary physician within a week of d/c. Discharge Physical Examination Allergies: Coded Allergies: No Known Drug Allergies (Unverified , 02/15/20) General Appearance: No Apparent Distress, WD/WN Respiratory: Lungs Clear, Normal Breath Sounds Cardiovascular: Regular Rate, Rhythm Skin: Warm/Dry Neurologic/Psychiatric: Alert, Normal Mood/Affect, Other (oriented to self, location and year but not month or day, unable to state why he is in the hospital) Clinical Quality Measures AMI/AHF: ASA po Prior to arrival: CLAUDIO Ye MD Jun 07, 2021 12:10
[2021-06-07 12:56] VITALS: BP 181/97
[2021-06-08] MEDS ORDERED: lisINopril 10 MG (PRINIVIL) TABLET PO SCH (09:00)
== END 2021-06-07 12:45 | DRG 281 ==
LOC: EDUNIT# 15:23 → ER 15:25 → ICU 18:10 → OBSVTOIN 19:31 → ICU 06-06 13:26
PROVIDERS: ADMIT Internal Medicine; ATTEND Family Medicine
PROC: 4A023N7 Measurement of Cardiac Sampling and Pressure, Left Heart, Percutaneous Approach (ICD-10-PCS; principal; 2021-06-05)
PROC: B2111ZZ Fluoroscopy of Multiple Coronary Arteries using Low Osmolar Contrast (ICD-10-PCS; 2021-06-05)
DX: I21.4 Non-ST elevation (NSTEMI) myocardial infarction (principal); R64 Cachexia; I25.110 Atherosclerotic heart disease of native coronary artery with unstable angina pectoris; I10 Essential (primary) hypertension; E11.9 Type 2 diabetes mellitus without complications; F25.0 Schizoaffective disorder, bipolar type; R53.81 Other malaise; F17.290 Nicotine dependence, other tobacco product, uncomplicated; E78.00 Pure hypercholesterolemia, unspecified; R41.82 Altered mental status, unspecified; Z79.84 Long term (current) use of oral hypoglycemic drugs; Z79.899 Other long term (current) drug therapy; Z20.822 Contact with and (suspected) exposure to COVID-19
CPT/HCPCS: 36415; 71045; 80048; 80053; 80061; 83036; 83735; 83874; 84484; 85025; 85027; 85379; 85610; 85730; 87636; 93005; 93041; 93306; 93458

== ENCOUNTER 2021-12-08 12:51 | Emergency (ER) | payer MEDICARE, MEDICAID ==
[~2021-12-08] VITALS: Ht 187.9 cm; Wt 72.5 kg
[~2021-12-08 12:51] MED LIST changes: +ACET325C7 PO; +ASPI-1238 PO; +CLOP75TA28 PO; +DAPA10TA PO; +LISI20TA26 PO; +POLY17PO6 PO; +ROSU20TA32 PO
--- NOTE | 2021-12-08 13:01 | ED EENT ---
History of Present Illness General Chief Complaint: Oral/Throat Problems Stated Complaint: CHOKED ON HAM Source: patient Exam Limitations: no limitations History of Present Illness Date Seen by Provider: Dec 08, 2021 Time Seen by Provider: 12:58 Initial Comments To ER by EMS from [place] where he resides with reports that he was choking on some ham. Staff lowered him to the floor and did a Heimlich maneuver. EMS arrived on scene and with a laryngoscope was able to displace his tongue and remove the large chunk of ham. Histsory of schizoaffective disorder and diabetes type 2, severe 3 vessel CAD, HTN. Timing/Duration: abrupt Severity: moderate Prearrival Treatment: other (hemilich maneuver, ham removed) Associated Symptoms: facial pain/swelling Allergies and Home Medications Allergies Coded Allergies: No Known Drug Allergies (Unverified , 02/15/20) Patient Home Medication List Home Medication List Reviewed: Yes Acetaminophen (Tylenol) 325 Mg Capsule, 650 MG PO Q6H PRN for PAIN-MILD (1-4), (Reported) Entered as Reported by: EL BRIDGES on 06/06/21 1155 Aspirin (Aspirin EC) 81 Mg Tablet.dr, 81 MG PO DAILY Prescribed by: CLAUDIO COOK on 06/07/21 1210 Clopidogrel Bisulfate (Clopidogrel) 75 Mg Tablet, 75 MG PO DAILY Prescribed by: CLAUDIO COOK on 06/07/21 1210 Dapagliflozin Propanediol (Farxiga) 10 Mg Tablet, 10 MG PO DAILY, (Reported) Entered as Reported by: EL BRIDGES on 06/06/21 1155 Lisinopril (Lisinopril) 20 Mg Tablet, 20 MG PO DAILY, (Reported) Entered as Reported by: EL BRIDGES on 06/06/21 1155 Metformin HCl (Metformin HCl) 500 Mg Tablet, 1,000 MG PO BID, (Reported) Entered as Reported by: CINDY CALVO on 02/16/20 0617 Olanzapine (Olanzapine) 10 Mg Tablet, 20 MG PO DAILY, (Reported) Entered as Reported by: CINDY CALVO on 02/16/20 0617 Polyethylene Glycol 3350 (Miralax) 17 Gm Powd.pack, 17 GM PO Q8H PRN for CONSTIPATION-2ND LINE, (Reported) Entered as Reported by: EL BRIDGES on 06/06/21 1155 Rosuvastatin Calcium (Rosuvastatin Calcium) 20 Mg Tablet, 20 MG PO HS Prescribed by: CLAUDIO COOK on 06/07/21 1210 Review of Systems Review of Systems Constitutional: see HPI Eyes: See HPI Ears: See HPI Nose: see HPI Mouth: see HPI Throat: see HPI Respiratory: see HPI Cardiovascular: see HPI Musculoskeletal: see HPI Skin: see HPI Neurological: See HPI Hematologic/Lymphatic: See HPI Immunological/Allergic: see HPI Past Loskiwh-Iucvjy-Urvjgp Hx Immunizations Up To Date Tetanus Booster (TDap): Unknown Seasonal Allergies Seasonal Allergies: No Past Medical History Cardiac: Yes Hypertension Endocrine: Yes (OBTAINED BY [employer] RECORDS) Diabetes, Non-Insulin dep Psychosocial: Yes (SCHIZOAFFECTIVE DISORDER - OBTAINED BY [employer] RECORDS) Bipolar Integumentary: No (POOR HISTORIAN-UNABLE TO OBTAIN INFO) Family Medical History Patient reports no known family medical history. Physical Exam Vital Signs Vital Signs - First Documented 12/08/21 12:56 Temp 35.8 Pulse 93 Resp 18 B/P (MAP) 178/95 (122) Pulse Ox 97 O2 Delivery Nasal Cannula O2 Flow Rate 2.00 Height, Weight, BMI Height: '" Weight: lbs. oz. kg; 20.73 BMI Method: General Appearance: WD/WN, no apparent distress, thin, other (chronically ill, thin, no respiratory distres. O2 97% on 2L which he wears occasionally at home) Eyes: bilateral eye normal inspection, bilateral eye PERRL, bilateral eye EOMI Ears: bilateral ear auricle normal, bilateral ear canal normal, bilateral ear TM normal Mouth/Throat: normal mouth inspection Neck: non-tender, full range of motion Respiratory: no respiratory distress, no accessory muscle use Gastrointestinal: normal bowel sounds, non tender Neurologic/Psychiatric: alert, normal mood/affect, oriented x 3 Skin: normal color, warm/dry Progress/Results/Core Measures Results/Orders Lab Results Laboratory Tests Test 12/08/21 13:09 12/08/21 13:15 Range/Units Blood Gas Puncture Site RIGHT RADIAL Blood Gas Patient Temperature 35.8 Arterial Blood pH 7.28 *L 7.37-7.43 Arterial Blood Partial Pressure CO2 42 35-45 MMHG Arterial Blood Partial Pressure O2 77 L 79-93 MMHG Arterial Blood HCO3 19 L 23-27 MMOL/L Arterial Blood Total CO2 20.7 L 21.0-31.0 MMOL/L Arterial Blood Oxygen Saturation 95 94-100 % Arterial Blood Base Excess -6.4 L -2.5-2.5 MMOL/L Micheal Test POSITIVE Blood Gas Ventilator Setting NO Blood Gas Inspired Oxygen 2 L White Blood Count 3.7 L 4.3-11.0 10^3/uL Red Blood Count 4.28 L 4.30-5.52 10^6/uL Hemoglobin 14.2 13.3-17.7 g/dL Hematocrit 43 40-54 % Mean Corpuscular Volume 101 H 80-99 fL Mean Corpuscular Hemoglobin 33 25-34 pg Mean Corpuscular Hemoglobin Concent 33 32-36 g/dL Red Cell Distribution Width 12.7 10.0-14.5 % Platelet Count 144 130-400 10^3/uL Mean Platelet Volume 10.2 9.0-12.2 fL Immature Granulocyte % (Auto) 1 % Neutrophils (%) (Auto) 48 42-75 % Lymphocytes (%) (Auto) 39 12-44 % Monocytes (%) (Auto) 8 0-12 % Eosinophils (%) (Auto) 3 0-10 % Basophils (%) (Auto) 0 0-10 % Neutrophils # (Auto) 1.8 1.8-7.8 10^3/uL Lymphocytes # (Auto) 1.5 1.0-4.0 10^3/uL Monocytes # (Auto) 0.3 0.0-1.0 10^3/uL Eosinophils # (Auto) 0.1 0.0-0.3 10^3/uL Basophils # (Auto) 0.0 0.0-0.1 10^3/uL Immature Granulocyte # (Auto) 0.0 0.0-0.1 10^3/uL Sodium Level 143 135-145 MMOL/L Potassium Level 3.9 3.6-5.0 MMOL/L Chloride Level 107 98-107 MMOL/L Carbon Dioxide Level 19 L 21-32 MMOL/L Anion Gap 17 H 5-14 MMOL/L Blood Urea Nitrogen 13 7-18 MG/DL Creatinine 0.79 0.60-1.30 MG/DL Estimat Glomerular Filtration Rate 97 BUN/Creatinine Ratio 16 Glucose Level 192 H 70-105 MG/DL Calcium Level 9.4 8.5-10.1 MG/DL My Orders Orders - KEYON ASIF APRN Cbc With Automated Diff (12/08/21 12:58) Basic Metabolic Panel (12/08/21 12:58) Chest Pa/Lat (2 View) (12/08/21 12:58) Arterial Blood Gas (12/08/21 13:02) Vital Signs/I&O 12/08/21 12:56 Temp 35.8 Pulse 93 Resp 18 B/P (MAP) 178/95 (122) Pulse Ox 97 O2 Delivery Nasal Cannula O2 Flow Rate 2.00 Departure Communication (Admissions) NAME: MARIA INES ROSSI [facility] REC#: [id number] PT STATUS: REG ER : 1955 PHYSICIAN: KEYON ASIF APRN ADMIT DATE: 12/08/21/ER Draft Date of Exam:12/08/21 CHEST PA/LAT (2 VIEW) INDICATION: Choked on food. FINDINGS: Lungs are hyperexpanded but clear. No opaque foreign body. No pneumothorax or pneumomediastinum. No pleural fluid. No infiltrate, failure, or effusion. IMPRESSION: Clear hyperexpanded lungs, otherwise negative. Dictated on workstation # [id number] Dict: 12/08/21 1341 Trans: 12/08/21 1345 [id number] Interpreted by: MARTHA BRUCE Electronically signed by: Impression Primary Impression: Choking due to food in larynx Disposition: 01 HOME, SELF-CARE Condition: Stable Departure-Patient Inst. Decision time for Depature: 13:55 Referrals: CLAUDIA HERNANDEZ MD (PCP/Family) Primary Care Physician Patient Instructions: NO INSTRUCTIONS GIVEN Add. Discharge Instructions: 1. Antibiotics as directed 2. Return to ER for any concerns, low oxygen or increasing cough. Follow up with his doctor next week All discharge instructions reviewed with patient and/or family. Voiced understanding. Scripts Amoxicillin/Potassium Clav (Augmentin 875-125 Tablet) 1 Each Tablet 1 EACH PO BID, #10 TAB Prov: KEYON ASIF APRN 12/08/21 KEYON ASIF APRN Dec 08, 2021 13:00
[2021-12-08 13:13] LABS: ABG BASE EXCESS -6.4 MMOL/L (-2.5-2.5); ABG OXYGEN SATURATION 95 % (94-100); ABG PCO2 42 MMHG (35-45); ABG PO2 77 MMHG (79-93); ABG TCO2 20.7 MMOL/L (21.0-31.0)
[2021-12-08 13:17] LABS: ABG PH 7.28 (7.37-7.43); ALLENS TEST POSITIVE; INSPIRED O2 2 L; VENTILATOR NO
[2021-12-08 13:18] LABS: PATIENT TEMP 35.8
[2021-12-08 13:22] LABS: BASOPHILS % (AUTO) 0 % (0-10); EOSINOPHILS # (AUTO) 0.1 10^3/uL (0.0-0.3); EOSINOPHILS % (AUTO) 3 % (0-10); HEMATOCRIT 43 % (40-54); HEMOGLOBIN 14.2 g/dL (13.3-17.7); LYMPHOCYTES # (AUTO) 1.5 10^3/uL (1.0-4.0); LYMPHOCYTES % (AUTO) 39 % (12-44); MEAN CORPUSCULAR HEMOGLOBIN 33 pg (25-34); MEAN CORPUSCULAR HGB CONC 33 g/dL (32-36); MEAN CORPUSCULAR VOLUME 101 fL (80-99); MEAN PLATELET VOLUME 10.2 fL (9.0-12.2); MONOCYTES # (AUTO) 0.3 10^3/uL (0.0-1.0); MONOCYTES % (AUTO) 8 % (0-12); NEUTROPHILS # (AUTO) 1.8 10^3/uL (1.8-7.8); NEUTROPHILS % (AUTO) 48 % (42-75); PLATELET COUNT 144 10^3/uL (130-400); WHITE BLOOD COUNT 3.7 10^3/uL (4.3-11.0)
[2021-12-08 13:34] LABS: POTASSIUM 3.9 MMOL/L (3.6-5.0)
[2021-12-08 13:35] LABS: CALCIUM 9.4 MG/DL (8.5-10.1)
[2021-12-08 13:39] LABS: CREATININE SERUM 0.79 MG/DL (0.60-1.30)
--- NOTE | 2021-12-08 13:45 | Diagnostic Imaging Report ---
INDICATION: Choked on food. FINDINGS: Lungs are hyperexpanded but clear. No opaque foreign body. No pneumothorax or pneumomediastinum. No pleural fluid. No infiltrate, failure, or effusion. IMPRESSION: Clear hyperexpanded lungs, otherwise negative. Dictated by: Dictated on workstation # [id number]
[2021-12-08] MEDS ORDERED: AMOX-358 PO (13:57)
[2021-12-08] MEDS ORDERED: PIPERACILLIN SODIUM/TAZOBACTAM 4.5 GM in NS (IVPB) 100 ML IV ONE (14:00)
[2021-12-08 15:15] VITALS: BP 131/70
== END 2021-12-08 15:10 | disposition home or self-care (01) ==
LOC: EDUNIT# 12:51 → ER 12:54
DX: T17.328A Food in larynx causing other injury, initial encounter (principal); I10 Essential (primary) hypertension; E11.9 Type 2 diabetes mellitus without complications; F31.9 Bipolar disorder, unspecified; Z79.01 Long term (current) use of anticoagulants; Z79.82 Long term (current) use of aspirin; Z79.84 Long term (current) use of oral hypoglycemic drugs; Z79.899 Other long term (current) drug therapy
CPT/HCPCS: 36415; 71046; 80048; 82805; 85025

== ENCOUNTER 2022-04-12 21:28 | Emergency (ER) | payer MEDICARE, MEDICAID ==
[~2022-04-12] VITALS: Ht 189 cm; Wt 73.4 kg
[~2022-04-12 21:28] MED LIST changes: +AMOX-358 PO
[2022-04-12] MEDS ORDERED: ALPRAZolam 0.25 MG (XANAX) TAB PO ONE (22:00)
[2022-04-12 22:09] LABS: BASOPHILS % (AUTO) 0 % (0-10); EOSINOPHILS # (AUTO) 0.1 10^3/uL (0.0-0.3); EOSINOPHILS % (AUTO) 1 % (0-10); HEMATOCRIT 38 % (40-54); HEMOGLOBIN 13.3 g/dL (13.3-17.7); LYMPHOCYTES # (AUTO) 1.4 10^3/uL (1.0-4.0); LYMPHOCYTES % (AUTO) 27 % (12-44); MEAN CORPUSCULAR HEMOGLOBIN 33 pg (25-34); MEAN CORPUSCULAR HGB CONC 35 g/dL (32-36); MEAN CORPUSCULAR VOLUME 94 fL (80-99); MEAN PLATELET VOLUME 10.7 fL (9.0-12.2); MONOCYTES # (AUTO) 0.3 10^3/uL (0.0-1.0); MONOCYTES % (AUTO) 6 % (0-12); NEUTROPHILS # (AUTO) 3.4 10^3/uL (1.8-7.8); NEUTROPHILS % (AUTO) 66 % (42-75); PLATELET COUNT 146 10^3/uL (130-400); WHITE BLOOD COUNT 5.2 10^3/uL (4.3-11.0)
--- NOTE | 2022-04-12 22:14 | Diagnostic Imaging Report ---
INDICATION: Chest pain. EXAMINATION: Chest, 04/12/2022. COMPARISON: 06/04/2021. FINDINGS: The cardiomediastinal silhouette is unremarkable. The pulmonary vasculature is within normal limits. The lungs and pleural spaces are clear. IMPRESSION: No evidence of an acute cardiopulmonary process. Dictated by: Dictated on workstation # [id number]
[2022-04-12 22:17] LABS: ALBUMIN 4.3 GM/DL (3.2-4.5)
[2022-04-12 22:18] LABS: POTASSIUM 3.9 MMOL/L (3.6-5.0)
[2022-04-12 22:19] LABS: CALCIUM 9.5 MG/DL (8.5-10.1)
[2022-04-12 22:20] LABS: TOTAL PROTEIN 7.3 GM/DL (6.4-8.2)
[2022-04-12 22:22] LABS: BILIRUBIN,TOTAL 0.5 MG/DL (0.1-1.0)
[2022-04-12 22:24] LABS: CREATININE SERUM 0.67 MG/DL (0.60-1.30)
[2022-04-12 22:26] LABS: MAGNESIUM 1.9 MG/DL (1.6-2.4); PROTHROMBIN TIME PATIENT 13.3 SEC (12.2-14.7)
--- NOTE | 2022-04-12 22:49 | ED Cardiac General ---
History of Present Illness General Chief Complaint: Cardiac/General Problems Stated Complaint: FVT Nursing Triage Note: PT TO ROOM BY [facility]. [facility] STATES PT WAS COMPLAINING OF PAIN AND NUMBNESS IN BILATERAL ARMS. EMS REPORTS PT IN SVT ON THEIR ARRIVAL WITH HEARTRATE OF 189. EMS GAVE PT 6 THEN 12 OF ADENOSINE AND PT HEARTRATE IS 94 ON ARRIVAL. PT STATES HE NO LONGER HAS PAIN IN HIS ARMS BUT REPORTS NUMBNESS IN THE LEFT HAND FOR "SEVERAL MONTHS." Source: patient, EMS, senior living records Exam Limitations: no limitations History of Present Illness Date Seen by Provider: Apr 12, 2022 Time Seen by Provider: 21:53 Initial Comments This 67-year-old gentleman presents to the emergency room via EMS after experiencing an episode of SVT. He is a resident of [facility]. [employer] bus arrived he was found to be in SVT with a heart rate of 189. EMS administered doses of adenosine 6 mg and 12 mg. He converted after the 12 mg dose. He is in sinus rhythm on arrival. His symptoms included numbness and pain across the arms bilaterally and tachycardia. Although he has converted, he is still rather anxious on arrival. There is also report of recent weight loss of 20 pounds in the last 6 months. Blood sugar for EMS was 174. Allergies and Home Medications Allergies Coded Allergies: No Known Drug Allergies (Unverified , 02/15/20) Patient Home Medication List Home Medication List Reviewed: Yes Acetaminophen (Tylenol) 325 Mg Capsule, 650 MG PO Q6H PRN for PAIN-MILD (1-4), (Reported) Entered as Reported by: EL BRIDGES on 06/06/21 1155 Amoxicillin/Potassium Clav (Augmentin 875-125 Tablet) 1 Each Tablet, 1 EACH PO BID Prescribed by: KEYON ASIF on 12/08/21 1357 Aspirin (Aspirin EC) 81 Mg Tablet.dr, 81 MG PO DAILY Prescribed by: CLAUDIO COOK on 06/07/21 1210 Clopidogrel Bisulfate (Clopidogrel) 75 Mg Tablet, 75 MG PO DAILY Prescribed by: CLAUDIO COOK on 06/07/21 1210 Dapagliflozin Propanediol (Farxiga) 10 Mg Tablet, 10 MG PO DAILY, (Reported) Entered as Reported by: EL BRIDGES on 06/06/21 1155 Lisinopril (Lisinopril) 20 Mg Tablet, 20 MG PO DAILY, (Reported) Entered as Reported by: EL BRIDGES on 06/06/21 1155 Metformin HCl (Metformin HCl) 500 Mg Tablet, 1,000 MG PO BID, (Reported) Entered as Reported by: CINDY CALVO on 02/16/20 0617 Olanzapine (Olanzapine) 10 Mg Tablet, 20 MG PO DAILY, (Reported) Entered as Reported by: CINDY CALVO on 02/16/20 0617 Polyethylene Glycol 3350 (Miralax) 17 Gm Powd.pack, 17 GM PO Q8H PRN for CONSTIPATION-2ND LINE, (Reported) Entered as Reported by: EL BRIDGES on 06/06/21 1155 Rosuvastatin Calcium (Rosuvastatin Calcium) 20 Mg Tablet, 20 MG PO HS Prescribed by: CLAUDIO COOK on 06/07/21 1210 Review of Systems Review of Systems Constitutional: see HPI EENTM: No Symptoms Reported Respiratory: No Symptoms Reported Cardiovascular: See HPI Gastrointestinal: No Symptoms Reported Genitourinary: No Symptoms Reported Musculoskeletal: no symptoms reported Skin: no symptoms reported Psychiatric/Neurological: See HPI Endocrine: No Symptoms Reported Past Odardws-Iynqpv-Dlvcda Hx Patient Social History Tobacco Use?: No Use of E-Cig and/or Vaping dev: No Substance use?: No Alcohol Use?: No Immunizations Up To Date Tetanus Booster (TDap): Unknown Influenza Vaccine Up-to-Date: No; Not Current First/Initial COVID19 Vaccinat: UNKNOWN Seasonal Allergies Seasonal Allergies: No Past Medical History Surgeries: No (None reported) Respiratory: No Cardiac: Yes Coronary Artery Disease, Hypertension Neurological: No Reproductive Disorders: No Genitourinary: No Gastrointestinal: No Musculoskeletal: No Endocrine: Yes (OBTAINED BY [employer] RECORDS) Diabetes, Non-Insulin dep HEENT: No Cancer: No Psychosocial: Yes (SCHIZOAFFECTIVE DISORDER - OBTAINED BY [employer] RECORDS) Bipolar Integumentary: No (POOR HISTORIAN-UNABLE TO OBTAIN INFO) Family Medical History Patient reports no known family medical history. Physical Exam Vital Signs Vital Signs - First Documented 04/12/22 21:30 Pulse 94 Resp 40 B/P (MAP) 119/86 (97) Pulse Ox 96 Capillary Refill : Height, Weight, BMI Height: '" Weight: lbs. oz. kg; 20.00 BMI Method: General Appearance: WD/WN, Anxious HEENT: PERRL/EOMI, Normal ENT Inspection Neck: Normal Inspection Respiratory: Lungs Clear, Normal Breath Sounds, No Accessory Muscle Use, Other (Tachypnea) Cardiovascular: Regular Rate, Rhythm, No Edema, Normal Peripheral Pulses Gastrointestinal: Soft; No Distended Extremity: Normal Inspection, No Pedal Edema Neurologic/Psychiatric: Alert, Oriented x3, No Motor/Sensory Deficits, rivet tester II- XII Norm as Tested, Other (Anxious) Skin: Normal Color, Warm/Dry Progress/Results/Core Measures Results/Orders Lab Results Laboratory Tests Test 04/12/22 21:36 04/12/22 22:09 Range/Units White Blood Count 5.2 4.3-11.0 10^3/uL Red Blood Count 4.02 L 4.30-5.52 10^6/uL Hemoglobin 13.3 13.3-17.7 g/dL Hematocrit 38 L 40-54 % Mean Corpuscular Volume 94 80-99 fL Mean Corpuscular Hemoglobin 33 25-34 pg Mean Corpuscular Hemoglobin Concent 35 32-36 g/dL Red Cell Distribution Width 12.3 10.0-14.5 % Platelet Count 146 130-400 10^3/uL Mean Platelet Volume 10.7 9.0-12.2 fL Immature Granulocyte % (Auto) 0 % Neutrophils (%) (Auto) 66 42-75 % Lymphocytes (%) (Auto) 27 12-44 % Monocytes (%) (Auto) 6 0-12 % Eosinophils (%) (Auto) 1 0-10 % Basophils (%) (Auto) 0 0-10 % Neutrophils # (Auto) 3.4 1.8-7.8 10^3/uL Lymphocytes # (Auto) 1.4 1.0-4.0 10^3/uL Monocytes # (Auto) 0.3 0.0-1.0 10^3/uL Eosinophils # (Auto) 0.1 0.0-0.3 10^3/uL Basophils # (Auto) 0.0 0.0-0.1 10^3/uL Immature Granulocyte # (Auto) 0.0 0.0-0.1 10^3/uL Prothrombin Time 13.3 12.2-14.7 SEC INR Comment 1.0 0.8-1.4 Activated Partial Thromboplast Time 31 24-35 SEC Sodium Level 143 135-145 MMOL/L Potassium Level 3.9 3.6-5.0 MMOL/L Chloride Level 106 98-107 MMOL/L Carbon Dioxide Level 21 21-32 MMOL/L Anion Gap 16 H 5-14 MMOL/L Blood Urea Nitrogen 15 7-18 MG/DL Creatinine 0.67 0.60-1.30 MG/DL Estimat Glomerular Filtration Rate 102 BUN/Creatinine Ratio 22 Glucose Level 144 H 70-105 MG/DL Calcium Level 9.5 8.5-10.1 MG/DL Corrected Calcium 9.3 8.5-10.1 MG/DL Magnesium Level 1.9 1.6-2.4 MG/DL Total Bilirubin 0.5 0.1-1.0 MG/DL Aspartate Amino Transf (AST/SGOT) 37 H 5-34 U/L Alanine Aminotransferase (ALT/SGPT) 55 0-55 U/L Alkaline Phosphatase 60 40-136 U/L Myoglobin 23.9 10.0-92.0 NG/ML Troponin I < 0.028 <0.028 NG/ML Total Protein 7.3 6.4-8.2 GM/DL Albumin 4.3 3.2-4.5 GM/DL My Orders Orders - JOHNATHAN MOSQUERA MD Ekg Tracing (04/12/22 21:31) Alprazolam Tablet (Xanax Tablet) (04/12/22 22:00) Cbc With Automated Diff (04/12/22 21:52) Magnesium (04/12/22 21:52) Chest 1 View, Ap/Pa Only (04/12/22 21:52) Comprehensive Metabolic Panel (04/12/22 21:52) Myoglobin Serum (04/12/22 21:52) Protime With Inr (04/12/22 21:52) Partial Thromboplastin Time (04/12/22 21:52) O2 (04/12/22 21:52) Monitor-Rhythm Ecg Trace Only (04/12/22 21:52) Ed Iv/Invasive Line Start (04/12/22 21:52) Troponin I Corinne (04/12/22 21:52) Medications Given in ED Vital Signs/I&O 04/12/22 04/12/22 21:30 23:32 Pulse 94 90 Resp 40 17 B/P (MAP) 119/86 (97) 137/74 Pulse Ox 96 95 Blood Pressure Mean: 97 Progress Progress Note : Progress Note Work-up was unremarkable. He had no further cardiac events. Xanax was given for anxiety with improvement. See discharge instructions for further discussion. Initial ECG Impression Date: Apr 12, 2022 Initial ECG Impression Time: 21:34 Initial ECG Rate: 93 Initial ECG Rhythm: Normal Sinus Initial ECG Impression: Normal Comment Sinus rhythm with no ST elevation or depression. No significant abnormal intervals or axis deviation. Diagnostic Imaging Diagonstic Imaging: Xray Plain Films/CT/US/NM/MRI: chest Comments NAME: MARIA INES ROSSI [facility] REC#: [id number] PT STATUS: REG ER : 1955 PHYSICIAN: JOHNATHAN MOSQUERA MD ADMIT DATE: 04/12/22/ER Signed Date of Exam:04/12/22 CHEST 1 VIEW, AP/PA ONLY INDICATION: Chest pain. EXAMINATION: Chest, 04/12/2022. COMPARISON: 06/04/2021. FINDINGS: The cardiomediastinal silhouette is unremarkable. The pulmonary vasculature is within normal limits. The lungs and pleural spaces are clear. IMPRESSION: No evidence of an acute cardiopulmonary process. Dictated by: Dictated on workstation # [id number] Dict: 04/12/222208 Trans: 04/12/222258 [facility] [id number] Interpreted by: KERMIT FARIAS MD Electronically signed by: KERMIT FARIAS MD 04/12/222258 Departure Impression Primary Impression: SVT (supraventricular tachycardia) Additional Impression: Anxiety Disposition: 01 HOME, SELF-CARE Condition: Improved Departure-Patient Inst. Decision time for Depature: 22:48 Referrals: CLAUDIA HERNANDEZ MD (PCP/Family) Primary Care Physician Patient Instructions: Paroxysmal Supraventricular Tachycardia (DC) Add. Discharge Instructions: Continue prior medications as previously directed. Follow-up with your primary care provider and regional director of finance (Dr. Aceves) as soon as possible. If SVT returns, try Valsalva maneuvers such as bearing down or blowing through a straw. If this is not effective in aborting the SVT, you may try applying an ice pack to the face briefly. If this does not resolve the SVT, return to the ER. Call your doctor with questions or concerns. Return to the ER if there are any other worsening of symptoms. All discharge instructions reviewed with patient and/or family. Voiced understanding. Copy Copies To 1: CLAUDIA HERNANDEZ MD, JOSHUA T MD Apr 12, 2022 22:49
[2022-04-12 23:32] VITALS: BP 137/74
== END 2022-04-12 23:33 | disposition home or self-care (01) ==
LOC: EDUNIT# 21:28 → ER 21:29
DX: I47.1 Supraventricular tachycardia (principal); F41.9 Anxiety disorder, unspecified
CPT/HCPCS: 36415; 71045; 80053; 83735; 83874; 84484; 85025; 85610; 85730; 93005; 93041

== ENCOUNTER 2022-06-24 09:29 | Emergency (ER) | payer MEDICARE, MEDICAID ==
[2022-06-24] MEDS ORDERED: LIDOCAINE/EPI 2% 1:100,00 (XYLOCAINE) 20 ML VIAL INJ ONE (10:30)
--- NOTE | 2022-06-24 10:33 | ED EENT ---
History of Present Illness General Chief Complaint: Oral/Throat Problems Stated Complaint: CP/ELEV BP GUMS BLEEDING FROM TEETH EXTRACTION Nursing Triage Note: PT TO [facility] 2 BY WC WITH C/O BLEEDING GUMS AFTER DENTAL SURG ON 06/23. PT WAS NOT OFF BLOOD THINNERS BEFORE SURGERY. PT ALSO SAYS THE CENTER OF HIS CHEST HAS BEEN HURTING FOR 4-5 DAYS BUT DID NOT TELL ANYONE Source: patient Exam Limitations: no limitations History of Present Illness Date Seen by Provider: Jun 24, 2022 Time Seen by Provider: 10:28 Initial Comments Patient ritu 67yo male to the ER with [facility] from [facility] with chief complaint of lower gums bleeding. He has a psych history/developmental disability. Had teeth extracted on 06/23 while on plavix - apparently the dentis had an opening and the patient was never off his plavix prior to the procedure. He has had continuous bleeding since the procedure. no f/c. no n/v. Patient is able to give me some ROS but it is somewhat liited due to mental disability. He is slightly tachycardic on exam and appears pale. BP is 97 Systolic. No gingival "pain" reported. No other complaints of illness or injury. ALl other ROS reviewed and neg except as stated. Timing/Duration: gradual Severity: moderate Location: dental Prearrival Treatment: no prearrival treatment Associated Symptoms: denies symptoms Allergies and Home Medications Allergies Coded Allergies: No Known Drug Allergies (Unverified , 02/15/20) Patient Home Medication List Home Medication List Reviewed: Yes Acetaminophen (Tylenol) 325 Mg Capsule, 650 MG PO Q6H PRN for PAIN-MILD (1-4), (Reported) Entered as Reported by: EL BRIDGES on 06/06/21 1155 Amoxicillin/Potassium Clav (Augmentin 875-125 Tablet) 1 Each Tablet, 1 EACH PO BID Prescribed by: KEYON ASIF on 12/08/21 1357 Aspirin (Aspirin EC) 81 Mg Tablet.dr, 81 MG PO DAILY Prescribed by: CLAUDIO COOK on 06/07/21 1210 Clopidogrel Bisulfate (Clopidogrel) 75 Mg Tablet, 75 MG PO DAILY Prescribed by: CLAUDIO COOK on 06/07/21 1210 Dapagliflozin Propanediol (Farxiga) 10 Mg Tablet, 10 MG PO DAILY, (Reported) Entered as Reported by: EL BRIDGES on 06/06/21 1155 Lisinopril (Lisinopril) 20 Mg Tablet, 20 MG PO DAILY, (Reported) Entered as Reported by: EL BRIDGES on 06/06/21 1155 Metformin HCl (Metformin HCl) 500 Mg Tablet, 1,000 MG PO BID, (Reported) Entered as Reported by: CINDY CALVO on 02/16/20 0617 Olanzapine (Olanzapine) 10 Mg Tablet, 20 MG PO DAILY, (Reported) Entered as Reported by: CINDY CALVO on 02/16/20 06 Polyethylene Glycol 3350 (Miralax) 17 Gm Powd.pack, 17 GM PO Q8H PRN for CONSTIPATION-2ND LINE, (Reported) Entered as Reported by: EL BRIDGES on 06/06/21 115 Rosuvastatin Calcium (Rosuvastatin Calcium) 20 Mg Tablet, 20 MG PO HS Prescribed by: CLAUDIO COOK on 06/07/21 1210 Review of Systems Review of Systems Constitutional: see HPI Mouth: other (bleeding gums) Throat: no symptoms reported Respiratory: no symptoms reported Cardiovascular: no symptoms reported Gastrointestinal: no symptoms reported Other ROS reviewed to best of patient's ability - neg except as stated, however limited due to patient's mental challenge Past Mddnhpm-Hwqttr-Bdbfta Hx Patient Social History Tobacco Use?: No Use of E-Cig and/or Vaping dev: No Substance use?: No Alcohol Use?: No Pt feels they are or have been: No Immunizations Up To Date Tetanus Booster (TDap): Unknown First/Initial COVID19 Vaccinat: UNKNOWN Second COVID19 Vaccination Óscar: UNKNOWN Third COVID19 Vaccination Date: UNKNOWN Seasonal Allergies Seasonal Allergies: No Past Medical History Surgery/Hospitalization HX: SCHIZOAFFECTIVE DO, BIPOLAR, DM, HTN, HLD, INSOMNIA, ARTHRITIS, DENTAL SURG 06/23/22 Surgeries: No (None reported) Respiratory: No Cardiac: Yes Coronary Artery Disease, Hypertension Neurological: No Reproductive Disorders: No Genitourinary: No Gastrointestinal: No Musculoskeletal: No Endocrine: Yes (OBTAINED BY [employer] RECORDS) Diabetes, Non-Insulin dep HEENT: No Cancer: No Psychosocial: Yes (SCHIZOAFFECTIVE DISORDER - OBTAINED BY [employer] RECORDS) Bipolar Integumentary: No (POOR HISTORIAN-UNABLE TO OBTAIN INFO) Family Medical History Patient reports no known family medical history. Physical Exam Vital Signs Vital Signs - First Documented 06/24/22 09:40 Temp 36.4 Pulse 114 Resp 20 B/P (MAP) 117/60 (79) Height, Weight, BMI Height: '" Weight: lbs. oz. kg; 20.00 BMI Method: General Appearance: no apparent distress, thin, other (pale) Eyes: bilateral eye normal inspection, bilateral eye PERRL, bilateral eye EOMI Nose: normal inspection Mouth/Throat: other (all lower front teeth surgically extracted with active bleeding from right sided lower gingival. Clots present in gum. no significant swelling to gums. No purulence.) Neck: supple, normal inspection Cardiovascular: regular rate, rhythm, tachycardia Respiratory: lungs clear, normal breath sounds, no respiratory distress, no accessory muscle use Gastrointestinal: non tender, soft Neurologic/Psychiatric: alert Skin: warm/dry, pallor Progress/Results/Core Measures Results/Orders Lab Results Laboratory Tests Test 06/24/22 09:50 06/24/22 12:10 Range/Units White Blood Count 11.3 H 4.3-11.0 10^3/uL Red Blood Count 3.11 L 4.30-5.52 10^6/uL Hemoglobin 10.4 L 13.3-17.7 g/dL Hematocrit 30 L 40-54 % Mean Corpuscular Volume 97 80-99 fL Mean Corpuscular Hemoglobin 33 25-34 pg Mean Corpuscular Hemoglobin Concent 35 32-36 g/dL Red Cell Distribution Width 12.6 10.0-14.5 % Platelet Count 205 130-400 10^3/uL Mean Platelet Volume 10.7 9.0-12.2 fL Immature Granulocyte % (Auto) 0 % Neutrophils (%) (Auto) 73 42-75 % Lymphocytes (%) (Auto) 18 12-44 % Monocytes (%) (Auto) 8 0-12 % Eosinophils (%) (Auto) 0 0-10 % Basophils (%) (Auto) 0 0-10 % Neutrophils # (Auto) 8.3 H 1.8-7.8 10^3/uL Lymphocytes # (Auto) 2.1 1.0-4.0 10^3/uL Monocytes # (Auto) 0.9 0.0-1.0 10^3/uL Eosinophils # (Auto) 0.0 0.0-0.3 10^3/uL Basophils # (Auto) 0.0 0.0-0.1 10^3/uL Immature Granulocyte # (Auto) 0.0 0.0-0.1 10^3/uL Glucometer 156 H 70-110 MG/DL My Orders Orders - MARIO PIMENTEL MD Ed Iv/Invasive Line Start (06/24/22 10:23) Cbc With Automated Diff (06/24/22 10:23) Lidocaine/Epi 2% 1:100,000 (Xylocaine/Ep (06/24/22 10:30) Accucheck Stat ONCE (06/24/22 10:23) Tranexamic Acid Injection (Cyklokapron I (06/24/22 10:45) Ondansetron Injection (Zofran Injectio (06/24/22 10:45) Lidocaine/Epi Mpf 2% 1:200,000 (Xylocain (06/24/22 10:38) Olanzapine Orally Dissolve Tab (Zyprexa (06/24/22 12:00) Medications Given in ED Vital Signs/I&O Blood Pressure Mean: 79 Progress Progress Note : Time: 11:55 Progress Note Patient was injected with about 6ml of 2% lidocaine WITH epi in the right lower anterior gingiva. topical TXA applied (2x2's soaked with gauze and patient instructed to bite on the gauze. After about 20m bleeding seems to be controlled. He is tachy at 108bpm. BP 95 systolic. He's a bit pale, however his HGB is 11. He is somewhat agitated and a llittle combative with his ca regiver from the home - he has olanzepine on his med list - will give a dose here as I am certain he has not had his morning dose due to his oral bleeding. No clinical indications for blood transfusion and with bleeding stemmed, will monitor after the olanzepine and likely send home. Departure Impression Primary Impression: Gingival bleeding Disposition: HOME, SELF-CARE Condition: Improved Departure-Patient Inst. Referrals: CLAUDIA HERNANDEZ MD (PCP/Family) Primary Care Physician Patient Instructions: Bleeding Gums Add. Discharge Instructions: Soft foods for the next 24-48 hours. Resume home medications. If bleeding recurs, please bring him back to the Emergency Department for re- evaluation. Keep follow up appointment with Dentist. Return to the Emergency Department for any new, concerning or emergent complaints. Copy Copies To 1: CLAUDIA HERNANDEZ MD, KATHRYN M MD Jun 24, 2022 10:33
[2022-06-24] MEDS ORDERED: LIDOCAINE/EPI 2% 1:200,00 (XYLOCAINE) 10 ML VIAL ONE (10:38)
[2022-06-24 10:44] LABS: BASOPHILS % (AUTO) 0 % (0-10); EOSINOPHILS % (AUTO) 0 % (0-10); HEMATOCRIT 30 % (40-54); HEMOGLOBIN 10.4 g/dL (13.3-17.7); LYMPHOCYTES # (AUTO) 2.1 10^3/uL (1.0-4.0); LYMPHOCYTES % (AUTO) 18 % (12-44); MEAN CORPUSCULAR HEMOGLOBIN 33 pg (25-34); MEAN CORPUSCULAR HGB CONC 35 g/dL (32-36); MEAN CORPUSCULAR VOLUME 97 fL (80-99); MEAN PLATELET VOLUME 10.7 fL (9.0-12.2); MONOCYTES # (AUTO) 0.9 10^3/uL (0.0-1.0); MONOCYTES % (AUTO) 8 % (0-12); NEUTROPHILS # (AUTO) 8.3 10^3/uL (1.8-7.8); NEUTROPHILS % (AUTO) 73 % (42-75); PLATELET COUNT 205 10^3/uL (130-400); WHITE BLOOD COUNT 11.3 10^3/uL (4.3-11.0)
[2022-06-24] MEDS ORDERED: TRANEXAMIC ACID INJECTION 1,000 MG in NS (IVPB) 50 ML IV ONE (10:45)
[2022-06-24] MEDS ORDERED: ONDANSETRON 4 MG/2 ML (SDV) Z0FRAN IVP ONE (10:45)
[2022-06-24] MEDS ORDERED: OLANZapine 5 MG ODT (ZyPREXA ZYDIS) PO ONE (12:00)
[2022-06-24 12:15] VITALS: BP 97/57
[2022-06-27] MEDS ORDERED: METO-333 PO (10:40)
== END 2022-06-24 12:18 | disposition home or self-care (01) ==
LOC: EDUNIT# 09:29 → ER 09:32
DX: K06.8 Other specified disorders of gingiva and edentulous alveolar ridge (principal); Z98.818 Other dental procedure status
CPT/HCPCS: 36415; 82947; 85025

== ENCOUNTER 2022-06-24 17:55 | Observation (INO) | payer MEDICARE, MEDICAID ==
[~2022-06-24] VITALS: Ht 193 cm; Wt 66.1 kg
[2022-06-24] MEDS ORDERED: NS IV 1000 ML 1,000 ML IV SCH (18:15)
[2022-06-24 18:16] LABS: BASOPHILS % (AUTO) 0 % (0-10); EOSINOPHILS % (AUTO) 0 % (0-10); HEMATOCRIT 25 % (40-54); LYMPHOCYTES # (AUTO) 1.4 10^3/uL (1.0-4.0); LYMPHOCYTES % (AUTO) 15 % (12-44); MEAN CORPUSCULAR HEMOGLOBIN 33 pg (25-34); MEAN CORPUSCULAR HGB CONC 35 g/dL (32-36); MEAN CORPUSCULAR VOLUME 94 fL (80-99); MEAN PLATELET VOLUME 10.2 fL (9.0-12.2); MONOCYTES # (AUTO) 0.6 10^3/uL (0.0-1.0); MONOCYTES % (AUTO) 6 % (0-12); NEUTROPHILS # (AUTO) 7.5 10^3/uL (1.8-7.8); NEUTROPHILS % (AUTO) 79 % (42-75); PLATELET COUNT 177 10^3/uL (130-400); WHITE BLOOD COUNT 9.5 10^3/uL (4.3-11.0)
--- NOTE | 2022-06-24 18:17 | ED Fall/Injury ---
General Chief Complaint: Trauma-Non Activation Stated Complaint: FALL Source: patient, EMS, [facility] records, old records Exam Limitations: no limitations History of Present Illness Date Seen by Provider: Jun 24, 2022 Time Seen by Provider: 17:53 Initial Comments Patient [facility] with chief complaint he had a witnessed fall. They had him up in the chair by the time EMS got there. He has a history of diabetes denies any heart history. He has hypertension. He is complaining of some pain in his low back and some pain in his left chest pointing to his costal margins of his left lower ribs. He is on Plavix and recently had 6 teeth removed and had a fall and some copious bleeding from his mouth but is not having any bleeding presently. He was in the ER earlier today and had TXA given. His hemoglobin this morning was normal. His blood pressure was soft in the 100-1 10 range this morning. Per EMS it was 103/59. The patient states has been having the chest pain for 5 days but has not noted it to anybody until now. When asked where he was hurting he only volunteered his low back. When asked about his left chest then he pointed to his left lower anterior ribs. Allergies and Home Medications Allergies Coded Allergies: No Known Drug Allergies (Unverified , 02/15/20) Patient Home Medication List Home Medication List Reviewed: Yes Acetaminophen (Tylenol) 325 Mg Capsule, 650 MG PO Q6H PRN for PAIN-MILD (1-4), (Reported) Entered as Reported by: EL BRIDGES on 06/06/21 1155 Amoxicillin/Potassium Clav (Augmentin 875-125 Tablet) 1 Each Tablet, 1 EACH PO BID Prescribed by: KEYON ASIF on 12/08/21 1357 Aspirin (Aspirin EC) 81 Mg Tablet.dr, 81 MG PO DAILY Prescribed by: CLAUDIO COOK on 06/07/21 1210 Clopidogrel Bisulfate (Clopidogrel) 75 Mg Tablet, 75 MG PO DAILY Prescribed by: CLAUDIO COOK on 06/07/21 1210 Dapagliflozin Propanediol (Farxiga) 10 Mg Tablet, 10 MG PO DAILY, (Reported) Entered as Reported by: EL BRIDGES on 06/06/21 1155 Lisinopril (Lisinopril) 20 Mg Tablet, 20 MG PO DAILY, (Reported) Entered as Reported by: EL BRIDGES on 06/06/21 1155 Metformin HCl (Metformin HCl) 500 Mg Tablet, 1,000 MG PO BID, (Reported) Entered as Reported by: CINDY CALVO on 02/16/20 0617 Olanzapine (Olanzapine) 10 Mg Tablet, 20 MG PO DAILY, (Reported) Entered as Reported by: CINDY CALVO on 02/16/20 0617 Polyethylene Glycol 3350 (Miralax) 17 Gm Powd.pack, 17 GM PO Q8H PRN for CONSTIPATION-2ND LINE, (Reported) Entered as Reported by: EL BRIDGES on 06/06/21 1155 Rosuvastatin Calcium (Rosuvastatin Calcium) 20 Mg Tablet, 20 MG PO HS Prescribed by: CLAUDIO COKO on 06/07/21 1210 Review of Systems Review of Systems Constitutional: No chills, No diaphoresis Eyes: Denies Blindness, Denies Drainage Ears, Nose, Mouth, Throat: denies ear pain, denies ear discharge Respiratory: No cough, No short of breath Cardiovascular: see HPI, chest pain; No edema Gastrointestinal: see HPI Genitourinary: no symptoms reported, see HPI Musculoskeletal: see HPI, back pain (Low) All Other Systems Reviewed Negative Unless Noted: Yes Past Koampre-Sohxeo-Tmyajr Hx Patient Social History Tobacco Use?: No Use of E-Cig and/or Vaping dev: No Immunizations Up To Date Tetanus Booster (TDap): Unknown First/Initial COVID19 Vaccinat: UNKNOWN Second COVID19 Vaccination Óscar: UNKNOWN Third COVID19 Vaccination Date: UNKNOWN Seasonal Allergies Seasonal Allergies: No Past Medical History Surgery/Hospitalization HX: SCHIZOAFFECTIVE DO, BIPOLAR, DM, HTN, HLD, INSOMNIA, ARTHRITIS, DENTAL SURG 06/23/22 Surgeries: No (None reported) Respiratory: No Cardiac: Yes Coronary Artery Disease, Hypertension Neurological: No Reproductive Disorders: No Genitourinary: No Gastrointestinal: No Musculoskeletal: No Endocrine: Yes (OBTAINED BY [employer] RECORDS) Diabetes, Non-Insulin dep HEENT: No Cancer: No Psychosocial: Yes (SCHIZOAFFECTIVE DISORDER - OBTAINED BY [employer] RECORDS) Bipolar Integumentary: No (POOR HISTORIAN-UNABLE TO OBTAIN INFO) Family Medical History Patient reports no known family medical history. Physical Exam Vital Signs Vital Signs - First Documented 06/24/22 17:55 Temp 36.9 Pulse 100 B/P (MAP) 106/63 (77) Capillary Refill : Height, Weight, BMI Height: '" Weight: lbs. oz. kg; 20.00 BMI Method: General Appearance: WD/WN, no apparent distress HEENT: PERRL/EOMI, pharynx normal Neck: full range of motion, supple, normal inspection Cardiovascular: normal peripheral pulses, regular rate, rhythm Respiratory: lungs clear, normal breath sounds, no respiratory distress, no accessory muscle use Peripheral Pulses: 2+ Radial Pulses (R), 2+ Radial Pulses (L) Gastrointestinal: normal bowel sounds, non tender, soft Back: normal inspection, no CVA tenderness, no vertebral tenderness; No muscle spasm, No vertebral tenderness Neurologic/Psychiatric: alert, normal mood/affect, other (Oriented to person and place, at baseline. Waves consistently at the girl who was in the room when there is no girl in the room.) Skin: normal color, warm/dry Progress/Results/Core Measures Results/Orders Lab Results Laboratory Tests Test 06/24/22 18:07 Range/Units White Blood Count 9.5 4.3-11.0 10^3/uL Red Blood Count 2.70 L 4.30-5.52 10^6/uL Hemoglobin 9.0 L 13.3-17.7 g/dL Hematocrit 25 L 40-54 % Mean Corpuscular Volume 94 80-99 fL Mean Corpuscular Hemoglobin 33 25-34 pg Mean Corpuscular Hemoglobin Concent 35 32-36 g/dL Red Cell Distribution Width 12.5 10.0-14.5 % Platelet Count 177 130-400 10^3/uL Mean Platelet Volume 10.2 9.0-12.2 fL Immature Granulocyte % (Auto) 0 % Neutrophils (%) (Auto) 79 H 42-75 % Lymphocytes (%) (Auto) 15 12-44 % Monocytes (%) (Auto) 6 0-12 % Eosinophils (%) (Auto) 0 0-10 % Basophils (%) (Auto) 0 0-10 % Neutrophils # (Auto) 7.5 1.8-7.8 10^3/uL Lymphocytes # (Auto) 1.4 1.0-4.0 10^3/uL Monocytes # (Auto) 0.6 0.0-1.0 10^3/uL Eosinophils # (Auto) 0.0 0.0-0.3 10^3/uL Basophils # (Auto) 0.0 0.0-0.1 10^3/uL Immature Granulocyte # (Auto) 0.0 0.0-0.1 10^3/uL Prothrombin Time 14.8 H 12.2-14.7 SEC INR Comment 1.1 0.8-1.4 Activated Partial Thromboplast Time 31 24-35 SEC Sodium Level 140 135-145 MMOL/L Potassium Level 3.7 3.6-5.0 MMOL/L Chloride Level 102 98-107 MMOL/L Carbon Dioxide Level 21 21-32 MMOL/L Anion Gap 17 H 5-14 MMOL/L Blood Urea Nitrogen 51 H 7-18 MG/DL Creatinine 0.76 0.60-1.30 MG/DL Estimat Glomerular Filtration Rate 98 BUN/Creatinine Ratio 67 Glucose Level 189 H 70-105 MG/DL Calcium Level 9.2 8.5-10.1 MG/DL Corrected Calcium 9.5 8.5-10.1 MG/DL Magnesium Level 1.9 1.6-2.4 MG/DL Total Bilirubin 0.6 0.1-1.0 MG/DL Aspartate Amino Transf (AST/SGOT) 27 5-34 U/L Alanine Aminotransferase (ALT/SGPT) 35 0-55 U/L Alkaline Phosphatase 42 40-136 U/L Myoglobin 125.1 H 10.0-92.0 NG/ML Troponin I 0.062 H <0.028 NG/ML B-Type Natriuretic Peptide 59.4 <100.0 PG/ML Total Protein 6.0 L 6.4-8.2 GM/DL Albumin 3.6 3.2-4.5 GM/DL Lipase 7 L 8-78 U/L My Orders Orders - TOBIMIYA Rene Cbc With Automated Diff (06/24/22 18:07) Magnesium (06/24/22 18:07) Chest 1 View, Ap/Pa Only (06/24/22 18:07) Comprehensive Metabolic Panel (06/24/22 18:07) Myoglobin Serum (06/24/22 18:07) Protime With Inr (06/24/22 18:07) Partial Thromboplastin Time (06/24/22 18:07) O2 (06/24/22 18:07) Monitor-Rhythm Ecg Trace Only (06/24/22 18:07) Lipid Panel (06/25/22 06:00) Ed Iv/Invasive Line Start (06/24/22 18:07) Lipase (06/24/22 18:07) Bnp [place] (06/24/22 18:07) Troponin I Corinne (06/24/22 18:07) Ed Iv/Invasive Line Start (06/24/22 18:07) Ns Iv 1000 Ml (Sodium Chloride 0.9%) (06/24/22 18:15) Ct Head/Cervical Spine Wo (06/24/22 18:07) Ct Lumbar Spine Wo (06/24/22 18:07) Aspirin Chewable Tablet (Baby Aspirin Ch (06/24/22 19:15) Medications Given in ED Current Medications Medications Dose Ordered Sig/Una Route Start Time Stop Time Status Last Admin Dose Admin Aspirin 324 mg ONCE ONCE PO 06/24/22 19:15 06/24/22 19:16 DC 06/24/22 19:21 324 MG Vital Signs/I&O 06/24/22 17:55 Temp 36.9 Pulse 100 B/P (MAP) 106/63 (77) Progress Progress Note #1: Time: 18:13 Progress Note We will hold off on aspirin since he is already on Plavix and has issues with bleeding this morning. Is not having any bleeding presently. We will get a CT of his head and C-spine as well as lumbar spine. His back is nontender to palpation. He does not want anything for pain right now. We will get x-ray of his ribs. We will check some labs. Suspect that the pain in his chest is related to his fall. We will give him a liter of fluids and recheck some labs. Progress Note #2: Time: 19:45 Progress Note We will hold off on giving Lovenox or Plavix to this patient as well he has an elevated troponin of uncertain significance he has had copious bleeding already today. We will discussed the case with cardiology. He is not requesting anything for pain medicines right now. We did give him 324 mg of aspirin to chew and swallow. Initial ECG Impression Date: Jun 24, 2022 Initial ECG Impression Time: 18:03 Initial ECG Rate: 100 Initial ECG Rhythm: S.Tach Initial ECG Intervals: Normal Initial ECG Impression: Normal Comment Sinus tachycardia without clinically relevant ST changes. Diagnostic Imaging Diagonstic Imaging: Xray Plain Films/CT/US/NM/MRI: chest [facility] [place] [place] NAME: MARIA INES [facility]SI [facility] REC#: [id number] PT STATUS: REG ER : 1955 PHYSICIAN: MIYA BRITTON MD ADMIT DATE: 06/24/22/ER Draft Date of Exam:06/24/22 CHEST 1 VIEW, AP/PA ONLY CLINICAL INDICATION: Patient status post fall. EXAM: Portable chest x-ray upright view. COMPARISON: Chest x-ray dated 04/12/2022. FINDINGS: Lungs/pleura: Lungs are clear. There is no pneumothorax. There is no pleural effusion. Mediastinum: Unremarkable. Pulmonary vasculature: Unremarkable. Heart: Unremarkable. Bones/extrathoracic soft tissue: Unremarkable. IMPRESSION: There is no radiographic evidence of acute cardiopulmonary process. Dictated on workstation # [id number] Dict: 06/24/221843 Trans: 06/24/22 184 [facility] [id number] Interpreted by: RASHMI CROWDER MD Electronically signed by: Reviewed: Reviewed by Me Diagonstic Imaging: CT (Without IV contra) Plain Films/CT/US/NM/MRI: c-spine, head Comments [facility] [place] [place] NAME: MARIA INES [facility]SI [facility] REC#: [id number] PT STATUS: REG ER : 1955 PHYSICIAN: MIYA BRITTON MD ADMIT DATE: 06/24/22/ER Draft Date of Exam:06/24/22 CT HEAD/CERVICAL SPINE WO Clinical Indication: Patient with head and neck pain status post fall. Exam: Head CT without IV contrast with sagittal and coronal reformations. Axial CT scan of the cervical spine with sagittal and coronal reformations. Auto Exposure Controls were utilized during the CT exam to meet ALARA standards for radiation dose reduction. Comparison: None. Findings: Head CT: There is no evidence of acute cerebral infarct, intracranial hemorrhage or gross mass effect. The brain parenchymal volume appears appropriate for patient's age. There are patchy confluent areas of low-density involving the white matter of both cerebral hemispheres and latrice, likely representing chronic small vessel ischemic disease and leukoaraiosis. There is normal barcenas-white matter distinction. There is no significant midline shift or herniation. There is no evidence of hydrocephalus. The basal cisterns are unremarkable. The skull, extracranial soft tissue, and orbits are unremarkable. The paranasal sinuses are unremarkable. Temporal bones show no significant abnormality. Cervical spine CT: There is no acute cervical spine fracture or dislocation. There are cervical spine vertebral body spurs. Visualized upper lung husain are clear. The neck soft tissue structures show no significant abnormality. Impression: 1: There is no acute intracranial process. There is no intracranial hemorrhage or skull fracture. 2: There is no acute cervical spine fracture or dislocation. Dictated on workstation # [id number] Dict: 06/24/22 184 Trans: 06/24/221848 [facility] [id number] Interpreted by: RASHMI CROWDER MD Electronically signed by: Reviewed: Reviewed by Me Diagonstic Imaging: CT (Without IV contrast) Plain Films/CT/US/NM/MRI: other (Lumbar spine) Comments [facility] [place] NAME: MARIA INES ROSSI [facility] REC#: [id number] PT STATUS: REG ER : 1955 PHYSICIAN: MIYA BRITTON MD ADMIT DATE: 06/24/22/ER Draft Date of Exam:06/24/22 CT LUMBAR SPINE WO CLINICAL INDICATION: Patient with low back pain from fall. EXAM: Axial CT scan of the lumbar spine performed without IV contrast. Sagittal and coronal reformatted images were created. Auto Exposure Controls were utilized during the CT exam to meet ALARA standards for radiation dose reduction. COMPARISON: None. FINDINGS: There is no acute lumbar spine fracture or dislocation. There are degenerative spurs involving mid to lower lumbar spine. There is lower lumbar spine facet arthropathy. There is no significant paraspinal soft tissue abnormality. There are large amounts of stool seen in the visualized portions of the sigmoid colon. IMPRESSION: There is no acute fracture or dislocation. Dictated on workstation # [id number] Dict: 06/24/22 1843 Trans: 06/24/22 184 [facility] [id number] Interpreted by: RASHMI CROWDER MD Electronically signed by: Reviewed: Reviewed by Me Departure Communication (Admissions) Time/Spoke to Admitting Phy: 19:35 Discussed the case with Dr. Hirsch and she will do queued orders. Consult cardiology. Time/Spoke to Consulting Phy: 19:45 Discussed the case with Dr. Marcelino, cardiology and he recommends that we give the aspirin and Toprol 6.25 mg twice daily but do not give blood thinners due to his history of heavy bleeding from his recent surgery. He would not give the Plavix either for the same reason. Morphine for his pain as necessary. 80 mg of atorvastatin nightly. Impression Primary Impression: Fall Qualified Codes: W19.XXXA - Unspecified fall, initial encounter Additional Impressions: Rib pain on left side Low back pain Qualified Codes: M54.50 - Low back pain, unspecified Coronary artery disease with unstable angina pectoris Qualified Codes: I25.110 - Atherosclerotic heart disease of [place] coronary artery with unstable angina pectoris Disposition: ADMITTED INPATIENT Condition: Stable (ERASED) Admissions Decision to Admit Reason: Admit from ER (General) Decision to Admit/Date: Jun 24, 2022 Time/Decision to Admit Time: 19:30 Departure-Patient Inst. Referrals: CLAUDIA HERNANDEZ MD (PCP/Family) Primary Care Physician MIYA BRITTON Jun 24, 2022 18:17
[2022-06-24 18:38] LABS: ALBUMIN 3.6 GM/DL (3.2-4.5)
[2022-06-24 18:39] LABS: INR 1.1 (0.8-1.4); POTASSIUM 3.7 MMOL/L (3.6-5.0); PROTHROMBIN TIME PATIENT 14.8 SEC (12.2-14.7)
[2022-06-24 18:40] LABS: CALCIUM 9.2 MG/DL (8.5-10.1)
[2022-06-24 18:43] LABS: BILIRUBIN,TOTAL 0.6 MG/DL (0.1-1.0)
[2022-06-24 18:45] LABS: CREATININE SERUM 0.76 MG/DL (0.60-1.30)
--- NOTE | 2022-06-24 18:46 | Diagnostic Imaging Report ---
CLINICAL INDICATION: Patient with low back pain from fall. EXAM: Axial CT scan of the lumbar spine performed without IV contrast. Sagittal and coronal reformatted images were created. Auto Exposure Controls were utilized during the CT exam to meet ALARA standards for radiation dose reduction. COMPARISON: None. FINDINGS: There is no acute lumbar spine fracture or dislocation. There are degenerative spurs involving mid to lower lumbar spine. There is lower lumbar spine facet arthropathy. There is no significant paraspinal soft tissue abnormality. There are large amounts of stool seen in the visualized portions of the sigmoid colon. IMPRESSION: There is no acute fracture or dislocation. Dictated by: Dictated on workstation # [id number]
--- NOTE | 2022-06-24 18:47 | Diagnostic Imaging Report ---
CLINICAL INDICATION: Patient status post fall. EXAM: Portable chest x-ray upright view. COMPARISON: Chest x-ray dated 04/12/2022. FINDINGS: Lungs/pleura: Lungs are clear. There is no pneumothorax. There is no pleural effusion. Mediastinum: Unremarkable. Pulmonary vasculature: Unremarkable. Heart: Unremarkable. Bones/extrathoracic soft tissue: Unremarkable. IMPRESSION: There is no radiographic evidence of acute cardiopulmonary process. Dictated by: Dictated on workstation # [id number]
[2022-06-24 18:48] LABS: MAGNESIUM 1.9 MG/DL (1.6-2.4)
--- NOTE | 2022-06-24 18:49 | Diagnostic Imaging Report ---
Clinical Indication: Patient with head and neck pain status post fall. Exam: Head CT without IV contrast with sagittal and coronal reformations. Axial CT scan of the cervical spine with sagittal and coronal reformations. Auto Exposure Controls were utilized during the CT exam to meet ALARA standards for radiation dose reduction. Comparison: None. Findings: Head CT: There is no evidence of acute cerebral infarct, intracranial hemorrhage or gross mass effect. The brain parenchymal volume appears appropriate for patient's age. There are patchy confluent areas of low-density involving the white matter of both cerebral hemispheres and latrice, likely representing chronic small vessel ischemic disease and leukoaraiosis. There is normal barcenas-white matter distinction. There is no significant midline shift or herniation. There is no evidence of hydrocephalus. The basal cisterns are unremarkable. The skull, extracranial soft tissue, and orbits are unremarkable. The paranasal sinuses are unremarkable. Temporal bones show no significant abnormality. Cervical spine CT: There is no acute cervical spine fracture or dislocation. There are cervical spine vertebral body spurs. Visualized upper lung husain are clear. The neck soft tissue structures show no significant abnormality. Impression: 1: There is no acute intracranial process. There is no intracranial hemorrhage or skull fracture. 2: There is no acute cervical spine fracture or dislocation. Dictated by: Dictated on workstation # [id number]
[2022-06-24] MEDS ORDERED: ASPIRIN 81 MG CHEW (CHILDREN'S ASA) PO ONE (19:15)
[2022-06-24 20:45] VITALS: BP 97/59
[2022-06-24] MEDS ORDERED: CALCIUM CARBONATE 500 MG (TUMS) TAB.CHEW PO PRN (20:45)
[2022-06-24] MEDS ORDERED: ACETAMINOPHEN 325 MG TABLET PO PRN (20:45)
[2022-06-24] MEDS ORDERED: morphine INJ 4 MG/ML 1 ML (VIAL/SYRINGE) IV PRN (20:45)
[2022-06-24] MEDS ORDERED: diphenhydrAMINE 25 MG TAB (BENADRYL) PO PRN (20:45)
[2022-06-24] MEDS ORDERED: HALOPERIDOL 5 MG/ML (HALDOL) VIAL IM PRN (20:45)
[2022-06-24] MEDS ORDERED: LACTULOSE SYRUP 10GM/15ML (ENULOSE) 30ML UDC PO PRN (20:45)
[2022-06-24] MEDS ORDERED: MILK OF MAGNESIA 400 MG/5 ML 30 ML UDC PO PRN (20:45)
[2022-06-24] MEDS ORDERED: polyethylene glycoL POWDER 17 GM (MIRALAX) PACK PO PRN (20:45)
[2022-06-24] MEDS ORDERED: MELATONIN 3 MG TABLET PO PRN (20:45)
[2022-06-24] MEDS ORDERED: ONDANSETRON 4 MG (ZOFRAN) ORAL DISSOLVE TAB PO PRN (20:45)
[2022-06-24] MEDS ORDERED: LORazepam 0.5 MG (ATIVAN) TABLET PO PRN (20:45)
[2022-06-24] MEDS ORDERED: ANTACID SUSP 30 ML UDC (MYLANTA) PO PRN (20:45)
[2022-06-24] MEDS ORDERED: BISACODYL 10 MG SUPP (DULCOLAX) PR PRN (20:45)
[2022-06-24] MEDS ORDERED: cloNIDine 0.1 MG (CATAPRES) TAB PO PRN (20:45)
[2022-06-24] MEDS ORDERED: ONDANSETRON 4 MG/2 ML (SDV) Z0FRAN IV PRN (20:45)
[2022-06-24] MEDS ORDERED: diphenhydrAMINE 50 MG/ML INJ (BENADRYL) IVP PRN (20:45)
[2022-06-24 21:00] VITALS: BP 86/68
[2022-06-24 21:19] VITALS: BP 113/68
[2022-06-24] MEDS ORDERED: RT-ALBUTEROL/IPRATROPIUM 3 ML (DUONEB) VIAL INH PRN (21:30)
[2022-06-24 22:00] VITALS: BP 85/54
[2022-06-24 23:00] VITALS: BP 90/56
[2022-06-25] VITALS (11 sets, daily range): BP systolic 84–108; BP diastolic 50–66
[2022-06-25] MEDS: inSUlin ASPART (NovoLOG) 1 UNIT/0.01 ML (CHARGE PER UNIT) SC SCH ×5 (04:19→21:07)
[2022-06-25] MEDS: DOCUSATE SODIUM 100 MG (COLACE) CAP PO SCH ×3 (04:19→19:41)
[2022-06-25] MEDS: SENNOSIDES 8.6 MG (SENOKOT) TAB PO SCH ×3 (04:20→19:41)
[2022-06-25] MEDS: meTOprolol TARTRATE 25 MG (LOPRESSOR) TABLET PO SCH ×3 (04:20→19:41)
[2022-06-25 04:44] LABS: BASOPHILS % (AUTO) 0 % (0-10); EOSINOPHILS % (AUTO) 1 % (0-10); HEMATOCRIT 23 % (40-54); HEMOGLOBIN 7.8 g/dL (13.3-17.7); LYMPHOCYTES # (AUTO) 1.7 10^3/uL (1.0-4.0); LYMPHOCYTES % (AUTO) 31 % (12-44); MEAN CORPUSCULAR HEMOGLOBIN 33 pg (25-34); MEAN CORPUSCULAR HGB CONC 35 g/dL (32-36); MEAN CORPUSCULAR VOLUME 96 fL (80-99); MEAN PLATELET VOLUME 10.5 fL (9.0-12.2); MONOCYTES # (AUTO) 0.3 10^3/uL (0.0-1.0); MONOCYTES % (AUTO) 6 % (0-12); NEUTROPHILS # (AUTO) 3.4 10^3/uL (1.8-7.8); NEUTROPHILS % (AUTO) 61 % (42-75); PLATELET COUNT 131 10^3/uL (130-400); WHITE BLOOD COUNT 5.6 10^3/uL (4.3-11.0)
[2022-06-25 05:05] LABS: ALBUMIN 3.2 GM/DL (3.2-4.5); POTASSIUM 3.5 MMOL/L (3.6-5.0)
[2022-06-25 05:06] LABS: CALCIUM 8.8 MG/DL (8.5-10.1)
[2022-06-25 05:08] LABS: TOTAL PROTEIN 5.3 GM/DL (6.4-8.2)
[2022-06-25 05:10] LABS: BILIRUBIN,TOTAL 0.5 MG/DL (0.1-1.0)
[2022-06-25 05:11] LABS: CREATININE SERUM 0.61 MG/DL (0.60-1.30)
--- NOTE | 2022-06-25 06:48 | Short Stay Summary-Hospitalist ---
History of Present Illness HPI/Chief Complaint Chief complaint: Chest pain with slightly elevated troponin HPI: This is a 67-year-old male who lives at [facility] who has severe chronic debility with dementia who presented to the ER with complaints of chest pain and found to have slightly elevated troponin. Dr. Marcelino has been consulted and recommends conservative care. Patient will be transferred down to fourth floor and he is a very poor historian. Source: patient, RN/MD Exam Limitations: clinical condition Date Seen 06/25/22 Time Seen by a Provider: 10:30 Attending Physician Anthony Logan MD PCP Admitting Physician: Leda Puente DO Attending Physician: Leda Puente DO Referring Physician Date of Admission Jun 24, 2022 at 19:50 Home Medications & Allergies Home Medications Reviewed patient Home Medication Reconciliation performed by pharmacy medication reconciliations cardiopulmonary technician and/or nursing. Patients Allergies have been reviewed. Allergies Allergies Coded Allergies No Known Drug Allergies (Unverified02/15/20) Past Mdtjyqw-Dbvcvr-Jatrow Hx Patient Social History Marrital Status: single Employed/Student: retired Tobacco Use?: No Smoking Status: Unknown if Ever Smoked Use of E-Cig and/or Vaping dev: No Substance use?: No Alcohol Use?: No Pt feels they are or have been: No Immunizations Up To Date First/Initial COVID19 Vaccinat: UNKNOWN Second COVID19 Vaccination Óscar: UNKNOWN Tetanus Booster (TDap): Unknown Hepatitis A: Yes Hepatitis B: Yes Seasonal Allergies Seasonal Allergies: No Current Status Communicates: Verbally Primary Language: Belarusian Preferred Spoken Language: Belarusian Past Medical History Coronary Artery Disease, Hypertension Diabetes, Non-Insulin dep Bipolar PMHx: Difficult to obtain due to patient unable to provide DMII Behvaioral health disorder suspected given he is on olanzepine SurgHx: Unknown Family Medical History Patient reports no known family medical history. Review of Systems Constitutional: see HPI Physical Exam Physical Exam Vital Signs Vital Signs - First Documented 06/24/22 06/24/22 17:55 20:28 Temp 36.9 Pulse 100 Resp 20 B/P (MAP) 106/63 (77) Pulse Ox 95 O2 Delivery Room Air Capillary Refill : Height, Weight, BMI Height: '" Weight: lbs. oz. kg; 17.12 BMI Method: General Appearance: No Apparent Distress, WD/WN, Chronically ill Respiratory: Lungs Clear, Normal Breath Sounds Cardiovascular: Regular Rate, Rhythm Neurologic/Psychiatric: Alert, Depressed Affect, Disoriented, Motor Weakness (Generalized) Results Results/Procedures Labs Laboratory Tests 06/24/22 18:07 06/25/22 04:10 Patient resulted labs reviewed. Short Stay Diagnosis Discharge Diagnosis-Short Stay Admission Diagnosis Assessment: Chest pain Elevated troponin Dementia Final Discharge Diagnosis Assessment: Chest pain Elevated troponin Dementia Conclusion Plan Moved to fourth floor Appreciate cardiology Clinical Quality Measures DVT/VTE Risk/Contraindication: Contraindications-Pharm: Other *list below* Other: bleed teeth LEDA PUENTE DO Jun 25, 2022 06:48
--- NOTE | 2022-06-25 07:56 | Tele-ICU Progress Note ---
Progress Note video rounds completed 67 y/o male presents to ED after a witnessed fall and complaints of chest pain CT evaluation for trauma all negative Troponins mild elevation at 0.062 Admitted for possible ACS Focused Exam Height, Weight, BMI Height: '" Weight: lbs. oz. kg; 17.12 BMI Method: Labs Laboratory Tests 06/24/22 18:07 06/25/22 04:10 Results Results/Procedures Labs Laboratory Tests 06/24/22 18:07 06/25/22 04:10 Patient resulted labs reviewed. Results Labs Labs Laboratory Tests 06/24/22 18:07: White Blood Count 9.5, Red Blood Count 2.70L, Hemoglobin 9.0L, Hematocrit 25L, Mean Corpuscular Volume 94, Mean Corpuscular Hemoglobin 33, Mean Corpuscular Hemoglobin Concent 35, Red Cell Distribution Width 12.5, Platelet Count 177, Mean Platelet Volume 10.2, Immature Granulocyte % (Auto) 0, Neutrophils (%) (Auto) 79H, Lymphocytes (%) (Auto) 15, Monocytes (%) (Auto) 6, Eosinophils (%) (Auto) 0, Basophils (%) (Auto) 0, Neutrophils # (Auto) 7.5, Lymphocytes # (Auto) 1.4, Monocytes # (Auto) 0.6, Eosinophils # (Auto) 0.0, Basophils # (Auto) 0.0, Immature Granulocyte # (Auto) 0.0, Prothrombin Time 14.8H, INR Comment 1.1, Activated Partial Thromboplast Time 31, Sodium Level 140, Potassium Level 3.7, Chloride Level 102, Carbon Dioxide Level 21, Anion Gap 17H, Blood Urea Nitrogen 51H, Creatinine 0.76, Estimat Glomerular Filtration Rate 98, BUN/Creatinine Ratio 67, Glucose Level 189H, Calcium Level 9.2, Corrected Calcium 9.5, Magnesium Level 1.9, Total Bilirubin 0.6, Aspartate Amino Transf (AST/SGOT) 27, Alanine Aminotransferase (ALT/SGPT) 35, Alkaline Phosphatase 42, Myoglobin 125.1H, Troponin I 0.062H, B-Type Natriuretic Peptide 59.4, Total Protein 6.0L, Albumin 3.6, Lipase 7L 06/25/22 04:10: White Blood Count 5.6, Red Blood Count 2.35L, Hemoglobin 7.8L, Hematocrit 23L, Mean Corpuscular Volume 96, Mean Corpuscular Hemoglobin 33, Mean Corpuscular Hemoglobin Concent 35, Red Cell Distribution Width 12.8, Platelet Count 131, Mean Platelet Volume 10.5, Immature Granulocyte % (Auto) 0, Neutrophils (%) (Auto) 61, Lymphocytes (%) (Auto) 31, Monocytes (%) (Auto) 6, Eosinophils (%) (Auto) 1, Basophils (%) (Auto) 0, Neutrophils # (Auto) 3.4, Lymphocytes # (Auto) 1.7, Monocytes # (Auto) 0.3, Eosinophils # (Auto) 0.0, Basophils # (Auto) 0.0, Immature Granulocyte # (Auto) 0.0, Sodium Level 145, Potassium Level 3.5L, Chloride Level 108H, Carbon Dioxide Level 24, Anion Gap 13, Blood Urea Nitrogen 41H, Creatinine 0.61, Estimat Glomerular Filtration Rate 105, BUN/Creatinine Ratio 67, Glucose Level 98, Calcium Level 8.8, Corrected Calcium 9.4, Total Bilirubin 0.5, Aspartate Amino Transf (AST/SGOT) 26, Alanine Aminotransferase (ALT/SGPT) 31, Alkaline Phosphatase 36L, Troponin I 0.038H, Total Protein 5.3L, Albumin 3.2, Triglycerides Level 53, Cholesterol Level 62, LDL Cholesterol Direct 22, VLDL Cholesterol 11, HDL Cholesterol 26L JULIO SINGH MD Jun 25, 2022 07:56
[2022-06-25] MEDS ORDERED: NS IV 500 ML 500 ML ONE (08:20)
[2022-06-25] MEDS: POTASSIUM CL 10MEQ/50ML IVPB 50 ML IV SCH ×2 (08:27→09:37)
[2022-06-25] MEDS: ASPIRIN 81 MG CHEW (CHILDREN'S ASA) PO SCH (08:28)
--- NOTE | 2022-06-25 12:51 | Consultation-Cardiology ---
HPI-Cardiology Cardiology Consultation: Date of Consultation 06/25/22 Time Seen by a Provider: 10:20 Date of Admission Attending Physician Anthony Logan MD Admitting Physician Admitting Physician: Leda Hirsch DO Attending Physician: Leda Hirsch DO Consulting Physician SARY RUDOLPH MD, MA, FACP, FACC, FSCAI, CCDS HPI: Chief Complaint: Reason for Card consult: Elevated troponin 67 yo man, resident of a local [place], admitted by Dr Hirsch after the patient was brought to the ER after he had brief syncope while on his feet. He reported back pain and L lower rib cage pain. No other chest pain. He was found to be somewhat hypotensive during this hospitalization. He does not reply to questions in any detail. Some questions he does not answer at all. Review of Systems-Cardiology Review of Systems Constitutional: malaise, tiredness, other (ROS is not reliable as he was not very forthcoming with answers to question) Eyes: No vision change Ears/Nose/Throat: No recent hearing loss Cardiovascular: As described under HPI Gastrointestinal: No nausea Genitourinary: No dysuria Musculoskeletal: back pain (chronic) Skin: No rash Psychiatric/Neurological: No focal weakness Hematologic: No bleeding abnormalities All Other Systems Reviewed Negative Unless Noted: Yes GCN-Axdkph-Gwcixz Hx Patient Social History Have you traveled recently?: No Alcohol Use?: No Pt feels they are or have been: No Immunizations Up To Date Tetanus Booster (TDap): Unknown Past Medical History PMH As described under Assessment. Family Medical History Family Medical History: The patient does not know of any family history of premature coronary artery disease. Family History: Patient reports no known family medical history. Allergies and Home Medications Allergies Coded Allergies: No Known Drug Allergies (Unverified , 02/15/20) Patient Home Medication List Home Medication List Reviewed: Yes Acetaminophen (Tylenol) 325 Mg Capsule, 650 MG PO Q6H PRN for PAIN-MILD (1-4), (Reported) Entered as Reported by: EL BRIDGES on 06/06/21 1155 Amoxicillin/Potassium Clav (Augmentin 875-125 Tablet) 1 Each Tablet, 1 EACH PO BID Prescribed by: KEYON ASIF on 12/08/21 1357 Aspirin (Aspirin EC) 81 Mg Tablet.dr, 81 MG PO DAILY Prescribed by: CLAUDIO COOK on 06/07/21 1210 Clopidogrel Bisulfate (Clopidogrel) 75 Mg Tablet, 75 MG PO DAILY Prescribed by: CLAUDIO COOK on 06/07/21 1210 Dapagliflozin Propanediol (Farxiga) 10 Mg Tablet, 10 MG PO DAILY, (Reported) Entered as Reported by: EL BRIDGES on 06/06/21 1155 Lisinopril (Lisinopril) 20 Mg Tablet, 20 MG PO DAILY, (Reported) Entered as Reported by: EL BRIDGES on 06/06/21 1155 Metformin HCl (Metformin HCl) 500 Mg Tablet, 1,000 MG PO BID, (Reported) Entered as Reported by: CINDY CALVO on 02/16/20 06 Olanzapine (Olanzapine) 10 Mg Tablet, 20 MG PO DAILY, (Reported) Entered as Reported by: CINDY CALVO on 02/16/20 06 Polyethylene Glycol 3350 (Miralax) 17 Gm Powd.pack, 17 GM PO Q8H PRN for CONS TIPATION-2ND LINE, (Reported) Entered as Reported by: EL BRIDGES on 06/06/21 1155 Rosuvastatin Calcium (Rosuvastatin Calcium) 20 Mg Tablet, 20 MG PO HS Prescribed by: CLAUDIO COOK on 06/07/21 1210 Physical Exam-Cardiology Physical Exam Vital Signs/I&O 06/25/22 06/25/22 06/25/22 06/25/22 01:00 01:00 02:00 03:00 Pulse 64 99 57 65 Resp 16 16 15 B/P (MAP) 85/54 (64) 84/54 (64) 99/52 (68) Pulse Ox 97 96 97 O2 Delivery Room Air Room Air Room Air 06/25/22 06/25/22 06/25/22 06/25/22 03:37 04:00 05:00 06:00 Pulse 62 61 61 Resp 17 16 14 B/P (MAP) 86/51 (63) 104/50 (68) Pulse Ox 98 100 97 O2 Delivery Room Air Room Air Room Air Room Air 06/25/22 06/25/22 06/25/22 06/25/22 07:00 07:58 08:00 08:00 Temp 37.0 Pulse 65 71 Resp 17 B/P (MAP) 98/58 (71) Pulse Ox 98 99 O2 Delivery Room Air Room Air 06/25/22 06/25/22 06/25/22 06/25/22 12:00 12:00 12:00 12:31 Temp 37.0 Pulse 72 66 Resp 15 B/P (MAP) 108/58 (75) Pulse Ox 97 100 O2 Delivery Room Air Room Air 06/25/22 00:00 Intake Total 1000 ml Balance 1000 ml Capillary Refill : Constitutional: No AAO x 3; other (does not respond to questions in any detail; appears disoriented from time to time) HEENT: PERRL, EOMI Neck: carotid pulses are 2 + bilaterally, with good upstrokes Respiratory: No accessory muscle use; other (fair, bilateral air entry; tenderness to palp over L lower rib cage) Cardiovascular: regular rate-rhythm, S1 and S2, systolic murmur (soft THEA at card base) Gastrointestinal: No tender; soft; No guarding, No rebound; audible bowel sounds Extremities: No clubbing, No cyanosis, No significant edema Neurologic/Psychiatric: No oriented x 3; other (seems to move all limbs, does not cooperate with a neuro exam) Skin: No rash on exposed areas, No ulcerations on exposed areas Data Review Labs Laboratory Tests 06/24/22 18:07: White Blood Count 9.5, Red Blood Count 2.70L, Hemoglobin 9.0L, Hematocrit 25L, Mean Corpuscular Volume 94, Mean Corpuscular Hemoglobin 33, Mean Corpuscular Hemoglobin Concent 35, Red Cell Distribution Width 12.5, Platelet Count 177, Mean Platelet Volume 10.2, Immature Granulocyte % (Auto) 0, Neutrophils (%) (Auto) 79H, Lymphocytes (%) (Auto) 15, Monocytes (%) (Auto) 6, Eosinophils (%) (Auto) 0, Basophils (%) (Auto) 0, Neutrophils # (Auto) 7.5, Lymphocytes # (Auto) 1.4, Monocytes # (Auto) 0.6, Eosinophils # (Auto) 0.0, Basophils # (Auto) 0.0, Immature Granulocyte # (Auto) 0.0, Prothrombin Time 14.8H, INR Comment 1.1, Activated Partial Thromboplast Time 31, Sodium Level 140, Potassium Level 3.7, Chloride Level 102, Carbon Dioxide Level 21, Anion Gap 17H, Blood Urea Nitrogen 51H, Creatinine 0.76, Estimat Glomerular Filtration Rate 98, BUN/Creatinine Ratio 67, Glucose Level 189H, Calcium Level 9.2, Corrected Calcium 9.5, Magnesium Level 1.9, Total Bilirubin 0.6, Aspartate Amino Transf (AST/SGOT) 27, Alanine Aminotransferase (ALT/SGPT) 35, Alkaline Phosphatase 42, Myoglobin 1 25.1H, Troponin I 0.062H, B-Type Natriuretic Peptide 59.4, Total Protein 6.0L, Albumin 3.6, Lipase 7L 06/25/22 04:10: White Blood Count 5.6, Red Blood Count 2.35L, Hemoglobin 7.8L, Hematocrit 23L, Mean Corpuscular Volume 96, Mean Corpuscular Hemoglobin 33, Mean Corpuscular Hemoglobin Concent 35, Red Cell Distribution Width 12.8, Platelet Count 131, Mean Platelet Volume 10.5, Immature Granulocyte % (Auto) 0, Neutrophils (%) (Auto) 61, Lymphocytes (%) (Auto) 31, Monocytes (%) (Auto) 6, Eosinophils (%) (Auto) 1, Basophils (%) (Auto) 0, Neutrophils # (Auto) 3.4, Lymphocytes # (Auto) 1.7, Monocytes # (Auto) 0.3, Eosinophils # (Auto) 0.0, Basophils # (Auto) 0.0, Immature Granulocyte # (Auto) 0.0, Sodium Level 145, Potassium Level 3.5L, Chloride Level 108H, Carbon Dioxide Level 24, Anion Gap 13, Blood Urea Nitrogen 41H, Creatinine 0.61, Estimat Glomerular Filtration Rate 105, BUN/Creatinine Ratio 67, Glucose Level 98, Calcium Level 8.8, Corrected Calcium 9.4, Total Bilirubin 0.5, Aspartate Amino Transf (AST/SGOT) 26, Alanine Aminotransferase (ALT/SGPT) 31, Alkaline Phosphatase 36L, Troponin I 0.038H, Total Protein 5.3L, Albumin 3.2, Triglycerides Level 53, Cholesterol Level 62, LDL Cholesterol Direct 22, VLDL Cholesterol 11, HDL Cholesterol 26L 06/25/22 11:02: Glucometer 110 Laboratory Tests 06/24/22 18:07 06/25/22 04:10 A/P-Cardiology Assessment/Admission Diagnosis Syncope likely due to hypotension Small NSTEMI - pt has known severe 3VD, based on card cath of May 2021 by his change of address clerk, Dr Aceves - in discussions between the patient, his family, and Dr Aceves, the plan for treatment has been guideline-directed medical therapy. His symptoms have been stable Chest wall pain (L lower rib cage) Mixed hyperlipidemia - treated with statin H/o lung nodules/mass - managed by pcp and the Hospitalist service Type 2 diabetes mellitus - managed by pcp and the Hospitalist service Schizoaffective disorder - managed by pcp and the Hospitalist service Electronic cigarette user - advised to quit Discussion and Recomendations * Conservative management (guideline-directed medical management of CAD) * Add Plavix * Continue ASA and statin * D/c clonidine because of low bp * Add low dose beta-srinath because of CAD * We recommend w/u for anemia. Dr Hirsch to decide * Replenish K * Monitor labs Clinical Quality Measures DVT/VTE Risk/Contraindication: Contraindications-Pharm: Other *list below* Other: bleed teeth SARY RUDOLPH MD FACP [facility] Jun 25, 2022 12:51
[2022-06-26 03:41] VITALS: BP 120/70
[2022-06-26 06:39] LABS: BASOPHILS % (AUTO) 0 % (0-10); EOSINOPHILS # (AUTO) 0.1 10^3/uL (0.0-0.3); EOSINOPHILS % (AUTO) 2 % (0-10); HEMATOCRIT 25 % (40-54); HEMOGLOBIN 8.2 g/dL (13.3-17.7); LYMPHOCYTES # (AUTO) 1.8 10^3/uL (1.0-4.0); LYMPHOCYTES % (AUTO) 40 % (12-44); MEAN CORPUSCULAR HEMOGLOBIN 33 pg (25-34); MEAN CORPUSCULAR HGB CONC 34 g/dL (32-36); MEAN CORPUSCULAR VOLUME 99 fL (80-99); MEAN PLATELET VOLUME 10.6 fL (9.0-12.2); MONOCYTES # (AUTO) 0.4 10^3/uL (0.0-1.0); MONOCYTES % (AUTO) 8 % (0-12); NEUTROPHILS # (AUTO) 2.3 10^3/uL (1.8-7.8); NEUTROPHILS % (AUTO) 50 % (42-75); PLATELET COUNT 147 10^3/uL (130-400); WHITE BLOOD COUNT 4.6 10^3/uL (4.3-11.0)
[2022-06-26 06:51] LABS: ALBUMIN 3.5 GM/DL (3.2-4.5)
[2022-06-26 06:52] LABS: POTASSIUM 3.5 MMOL/L (3.6-5.0)
[2022-06-26 06:53] LABS: CALCIUM 8.7 MG/DL (8.5-10.1)
[2022-06-26 06:54] LABS: TOTAL PROTEIN 5.9 GM/DL (6.4-8.2)
[2022-06-26 06:56] LABS: BILIRUBIN,TOTAL 0.6 MG/DL (0.1-1.0)
[2022-06-26 06:57] LABS: CREATININE SERUM 0.63 MG/DL (0.60-1.30)
[2022-06-26] MEDS: inSUlin ASPART (NovoLOG) 1 UNIT/0.01 ML (CHARGE PER UNIT) SC SCH ×4 (06:57→21:21)
[2022-06-26 07:06] VITALS: BP 113/70
[2022-06-26] MEDS: DOCUSATE SODIUM 100 MG (COLACE) CAP PO SCH ×2 (09:38→21:18)
[2022-06-26] MEDS: meTOprolol TARTRATE 25 MG (LOPRESSOR) TABLET PO SCH ×2 (09:39→21:19)
[2022-06-26] MEDS: SENNOSIDES 8.6 MG (SENOKOT) TAB PO SCH ×2 (09:39→21:20)
[2022-06-26] MEDS: ASPIRIN 81 MG CHEW (CHILDREN'S ASA) PO SCH (09:39)
[2022-06-26 11:11] VITALS: BP 102/64
[2022-06-26 15:16] VITALS: BP 116/67
--- NOTE | 2022-06-26 17:20 | Progress Note - Hospitalist ---
Subjective HPI/CC On Admission Date Seen by Provider: Jun 26, 2022 Time Seen by Provider: 12:00 Chief complaint: Chest pain with slightly elevated troponin HPI: This is a 67-year-old male who lives at [facility] who has severe chronic debility with dementia who presented to the ER with complaints of chest pain and found to have slightly elevated troponin. Dr. Marcelino has been consulted and recommends conservative care. Patient will be transferred down to fourth floor and he is a very poor historian. Subjective/Events-last exam Taking shower Awaiting Cardiology evaluation DC soon Review of Systems General: Fatigue Neurological: Confusion Objective Exam Vital Signs Vital Signs Date Time Temp Pulse Resp B/P (MAP) Pulse Ox O2 Delivery O2 Flow Rate FiO2 06/26/22 15:16 36.2 64 18 116/67 (83) 97 Room Air Capillary Refill : General Appearance: No Apparent Distress, WD/WN, Chronically ill, Thin Results/Procedures Lab Laboratory Tests 06/26/22 05:28 Patient resulted labs reviewed. Assessment/Plan Assessment and Plan Assess & Plan/Chief Complaint Chest pain Moved to fourth floor Appreciate cardiology Clinical Quality Measures DVT/VTE Risk/Contraindication: Contraindications-Pharm: Other *list below* Other: bleed teeth CORA PUENTE DO Jun 26, 2022 17:20
--- NOTE | 2022-06-26 17:25 | Progress Note - Cardiology ---
Cardiology SOAP Progress Note Subjective: No cp, palp, syncope Does not report symptoms States feels well Objective: I&O/Vital Signs 06/26/22 06/26/22 06/26/22 06/26/22 07:06 08:00 11:11 15:16 Temp 36.4 36.0 36.2 Pulse 60 59 64 Resp 21 22 18 B/P (MAP) 113/70 (84) 102/64 (77) 116/67 (83) Pulse Ox 99 100 100 97 O2 Delivery Room Air Room Air Room Air Room Air 06/26/22 00:00 Intake Total 290 ml Output Total 200 ml Balance 90 ml Constitutional: No AAO x 3; other (does not respond to questions in any detail; appears disoriented from time to time) Respiratory: No accessory muscle use; other (fair, bilateral air entry; tenderness to palp over L lower rib cage) Cardiovascular: regular rate-rhythm, S1 and S2, systolic murmur (soft THEA at card base) Gastrointestional: No tender; soft; No guarding, No rebound; audible bowel sounds Extremities: No clubbing, No cyanosis, No significant edema Neurologic/Psychiatric: No oriented x 3; other (seems to move all limbs, does not cooperate with a neuro exam) Skin: No rash on exposed areas, No ulcerations on exposed areas Results/Procedures: Labs Laboratory Tests 06/25/22 20:23: Glucometer 154H 06/26/22 05:28: White Blood Count 4.6, Red Blood Count 2.48L, Hemoglobin 8.2L, Hematocrit 25L, Mean Corpuscular Volume 99, Mean Corpuscular Hemoglobin 33, Mean Corpuscular Hemoglobin Concent 34, Red Cell Distribution Width 13.2, Platelet Count 147, Mean Platelet Volume 10.6, Immature Granulocyte % (Auto) 0, Neutrophils (%) (Auto) 50, Lymphocytes (%) (Auto) 40, Monocytes (%) (Auto) 8, Eosinophils (%) (Auto) 2, Basophils (%) (Auto) 0, Neutrophils # (Auto) 2.3, Lymphocytes # (Auto) 1.8, Monocytes # (Auto) 0.4, Eosinophils # (Auto) 0.1, Basophils # (Auto) 0.0, Immature Granulocyte # (Auto) 0.0, Sodium Level 143, Potassium Level 3.5L, Chloride Level 107, Carbon Dioxide Level 25, Anion Gap 11, Blood Urea Nitrogen 26H, Creatinine 0.63, Estimat Glomerular Filtration Rate 104, BUN/Creatinine Ratio 41, Glucose Level 97, Calcium Level 8.7, Corrected Calcium 9.1, Total Bilirubin 0.6, Aspartate Amino Transf (AST/SGOT) 36H, Alanine Aminotransferase (ALT/SGPT) 39, Alkaline Phosphatase 45, Total Protein 5.9L, Albumin 3.5 06/26/22 06:56: Glucometer 82 06/26/22 11:10: Glucometer 157H 06/26/22 15:14: Glucometer 168H 06/26/22 16:29: Glucometer 143H Laboratory Tests 06/24/22 18:07 06/25/22 04:10 06/26/22 05:28 A/P: Assessment: Syncope likely due to hypotension - bp now stable Small NSTEMI - pt has known severe 3VD, based on card cath of May 2021 by his scrummaster, Dr Aceves - in discussions between the patient, his family, and Dr Aceves, the plan for treatment has been guideline-directed medical therapy. His symptoms have been stable Chest wall pain (L lower rib cage) Mixed hyperlipidemia - treated with statin H/o lung nodules/mass - managed by pcp and the Hospitalist service Type 2 diabetes mellitus - managed by pcp and the Hospitalist service Schizoaffective disorder - managed by pcp and the Hospitalist service Electronic cigarette user - advised to quit Plan: * Conservative management (guideline-directed medical management of CAD) * Add Plavix * Continue ASA and statin * D/c clonidine because of low bp * Add low dose beta-srinath because of CAD * We recommend w/u for anemia. Dr Hirsch to decide * Ok to d/c from cardiac standpoint. Please maintain current regimen and have him f/u with Dr Aceves next week SARY RUDOLPH MD [facility] CCDS Jun 26, 2022 17:25
[2022-06-26 19:09] VITALS: BP 129/65
[2022-06-27 00:42] VITALS: BP 159/73
[2022-06-27 04:21] VITALS: BP 146/65
[2022-06-27] MEDS: inSUlin ASPART (NovoLOG) 1 UNIT/0.01 ML (CHARGE PER UNIT) SC SCH ×2 (05:38→11:18)
[2022-06-27 06:36] LABS: BASOPHILS % (AUTO) 0 % (0-10); EOSINOPHILS # (AUTO) 0.1 10^3/uL (0.0-0.3); EOSINOPHILS % (AUTO) 2 % (0-10); HEMATOCRIT 25 % (40-54); HEMOGLOBIN 8.4 g/dL (13.3-17.7); LYMPHOCYTES # (AUTO) 1.4 10^3/uL (1.0-4.0); LYMPHOCYTES % (AUTO) 28 % (12-44); MEAN CORPUSCULAR HEMOGLOBIN 33 pg (25-34); MEAN CORPUSCULAR HGB CONC 34 g/dL (32-36); MEAN CORPUSCULAR VOLUME 98 fL (80-99); MEAN PLATELET VOLUME 10.8 fL (9.0-12.2); MONOCYTES # (AUTO) 0.4 10^3/uL (0.0-1.0); MONOCYTES % (AUTO) 7 % (0-12); NEUTROPHILS # (AUTO) 3.1 10^3/uL (1.8-7.8); NEUTROPHILS % (AUTO) 63 % (42-75); PLATELET COUNT 144 10^3/uL (130-400); WHITE BLOOD COUNT 4.9 10^3/uL (4.3-11.0)
[2022-06-27 06:53] LABS: ALBUMIN 3.6 GM/DL (3.2-4.5); POTASSIUM 3.5 MMOL/L (3.6-5.0)
[2022-06-27 06:54] LABS: CALCIUM 8.8 MG/DL (8.5-10.1)
[2022-06-27 06:55] LABS: TOTAL PROTEIN 6.1 GM/DL (6.4-8.2)
[2022-06-27 06:57] LABS: BILIRUBIN,TOTAL 0.5 MG/DL (0.1-1.0)
[2022-06-27 06:59] LABS: CREATININE SERUM 0.59 MG/DL (0.60-1.30)
[2022-06-27 07:43] VITALS: BP 130/69
--- NOTE | 2022-06-27 08:24 | Cardiology Progress Note ---
Progress Note-Cardiology Events since last exam Date Seen by Provider: Jun 27, 2022 Time Seen by Provider: 08:22 Events since last exam We are following him due to syncope and probable NSTEMI. He denies chest pain, dyspnea, palpitations, recurrent syncope, or lower extremity edema. Certain portions of this document may have been dictated utilizing voice recognition technology. Inherent to this technology, typographical and grammatical errors may exist. As much as I am diligent to identify and correct these mistakes, some errors may remain in the document. Vitals Last set of Vitals Signs Vital Signs 06/27/22 06/27/22 06/27/22 07:43 08:00 09:41 Temp 37.0 Pulse 49 Resp 18 B/P (MAP) 130/69 (89) Pulse Ox 96 O2 Delivery Room Air Labs Labs Laboratory Tests 06/27/22 05:51 Exam Vital Signs Vital Signs Date Time Temp Pulse Resp B/P (MAP) Pulse Ox O2 Delivery O2 Flow Rate FiO2 06/27/22 09:41 49 06/27/22 08:00 Room Air 06/27/22 07:43 37.0 18 130/69 (89) 96 Physical Exam General: Alert. No acute distress. Eye: No xanthelasma. HENT: Normocephalic. Neck: Jugular venous pressure does not appear elevated. Respiratory: Lungs are clear to auscultation. Respirations are non-labored. Breath sounds are equal. Symmetrical chest wall expansion. Cardiovascular: Normal rate. Regular rhythm. No murmur. No gallop. No edema. Gastrointestinal: Soft. Normal bowel sounds. Skin: Warm. Dry. Neurologic: Alert and oriented to person and place but not time. Cranial nerves 3-11 grossly intact. Psychiatric: Cooperative. Appropriate mood & affect. Labs Laboratory Tests Test 06/26/22 11:10 06/26/22 15:14 06/26/22 16:29 06/26/22 21:21 Range/Units Glucometer 157 H 168 H 143 H 132 H 70-110 MG/DL Test 06/27/22 05:32 06/27/22 05:51 Range/Units Glucometer 95 70-110 MG/DL White Blood Count 4.9 4.3-11.0 10^3/uL Red Blood Count 2.54 L 4.30-5.52 10^6/uL Hemoglobin 8.4 L 13.3-17.7 g/dL Hematocrit 25 L 40-54 % Mean Corpuscular Volume 98 80-99 fL Mean Corpuscular Hemoglobin 33 25-34 pg Mean Corpuscular Hemoglobin Concent 34 32-36 g/dL Red Cell Distribution Width 12.9 10.0-14.5 % Platelet Count 144 130-400 10^3/uL Mean Platelet Volume 10.8 9.0-12.2 fL Immature Granulocyte % (Auto) 0 % Neutrophils (%) (Auto) 63 42-75 % Lymphocytes (%) (Auto) 28 12-44 % Monocytes (%) (Auto) 7 0-12 % Eosinophils (%) (Auto) 2 0-10 % Basophils (%) (Auto) 0 0-10 % Neutrophils # (Auto) 3.1 1.8-7.8 10^3/uL Lymphocytes # (Auto) 1.4 1.0-4.0 10^3/uL Monocytes # (Auto) 0.4 0.0-1.0 10^3/uL Eosinophils # (Auto) 0.1 0.0-0.3 10^3/uL Basophils # (Auto) 0.0 0.0-0.1 10^3/uL Immature Granulocyte # (Auto) 0.0 0.0-0.1 10^3/uL Sodium Level 144 135-145 MMOL/L Potassium Level 3.5 L 3.6-5.0 MMOL/L Chloride Level 108 H 98-107 MMOL/L Carbon Dioxide Level 26 21-32 MMOL/L Anion Gap 10 5-14 MMOL/L Blood Urea Nitrogen 15 7-18 MG/DL Creatinine 0.59 L 0.60-1.30 MG/DL Estimat Glomerular Filtration Rate 106 BUN/Creatinine Ratio 25 Glucose Level 106 H 70-105 MG/DL Calcium Level 8.8 8.5-10.1 MG/DL Corrected Calcium 9.1 8.5-10.1 MG/DL Total Bilirubin 0.5 0.1-1.0 MG/DL Aspartate Amino Transf (AST/SGOT) 40 H 5-34 U/L Alanine Aminotransferase (ALT/SGPT) 42 0-55 U/L Alkaline Phosphatase 47 40-136 U/L Total Protein 6.1 L 6.4-8.2 GM/DL Albumin 3.6 3.2-4.5 GM/DL Diagnosis/Problems Diagnosis/Problems (1) Syncope Assessment & Plan: Exact etiology unclear. There is no evidence of Zevyf-Nbgjmovez-Zdddc, Brugada syndrome, or prolonged or short QT on his resting electrocardiogram. There was a note from the emergency room provider that he may have had some supraventricular tachycardia but unfortunately, it does not appear that any telemetry strips were saved. Given his known history of severe three-vessel coronary artery disease, syncope is certainly concerning. However, as family had previously requested conservative medical therapy only. It would not be unreasonable to discharge the patient at this time. I will attempt to get a follow-up echocardiogram before he leaves. I may consider outpatient m onitoring but I will discuss this with the patient and his DPOA at the time of follow-up in my office. (2) Non-ST elevation myocardial infarction (NSTEMI), initial care episode Assessment & Plan: Probably had a non-ST elevation myocardial infarction due to supply/demand mismatch due to low blood pressures at the time of admission. He is not having any chest pain. He is on aspirin, beta-srinath, and statin medication. He appears to have been on clopidogrel prior to admission but due to anemia, I recommend we hold off on resuming clopidogrel. He was ordered for atorvastatin in the hospital but appears to have been taking rosuvastatin prior to admission. I changed him back over to rosuvastatin. As above, from a cardiac standpoint it would not be unreasonable to discharge him to home today. I would like to try to get an echocardiogram to get another assessment of his ejection fraction at this time. (3) Primary hypertension Assessment & Plan: He is now on metoprolol tartrate and he has been norm otensive. (4) Mixed hyperlipidemia Assessment & Plan: Continue rosuvastatin. His lipid panel looked good during this admission. (5) Schizoaffective disorder Assessment & Plan: Due to this disorder, his family has requested medical therapy only as opposed to aggressive measures such as coronary bypass surgery. (6) Type 2 diabetes mellitus with complication Assessment & Plan: This is being managed by the hospitalist. (7) Anemia Assessment & Plan: Etiology unclear. As above, I recommend we stop clopidogrel. His primary provider may need to have a discussion with his DPOA about evaluation of the anemia. CLAUDIA CADE JR, MD Jun 27, 2022 08:24
[2022-06-27] MEDS: ASPIRIN 81 MG CHEW (CHILDREN'S ASA) PO SCH (08:41)
[2022-06-27] MEDS: SENNOSIDES 8.6 MG (SENOKOT) TAB PO SCH (08:42)
[2022-06-27] MEDS: meTOprolol TARTRATE 25 MG (LOPRESSOR) TABLET PO SCH (08:42)
[2022-06-27] MEDS: DOCUSATE SODIUM 100 MG (COLACE) CAP PO SCH (08:42)
[2022-06-27] MEDS ORDERED: MELA3TAB39 PO (09:40)
[2022-06-27] MEDS ORDERED: CLOP75TA28 PO (09:40)
[2022-06-27] MEDS ORDERED: ROSU20TA32 PO (09:40)
[2022-06-27] MEDS ORDERED: TRM50T PO (09:40)
[2022-06-27] MEDS ORDERED: METF-397 PO (09:40)
[2022-06-27] MEDS ORDERED: ACET325T38 PO (09:40)
[2022-06-27] MEDS ORDERED: ZINC50TA51 PO (09:40)
[2022-06-27] MEDS ORDERED: OLAN10TA71 PO (09:40)
[2022-06-27] MEDS ORDERED: POLY17PO6 PO (09:40)
[2022-06-27] MEDS ORDERED: MULT-1136 PO (09:40)
[2022-06-27] MEDS ORDERED: ASPI-1238 PO (09:40)
[2022-06-27] MEDS ORDERED: ACET-2267 PO (09:40)
[2022-06-27] MEDS ORDERED: EMPA10TA PO (09:40)
[2022-06-27] MEDS ORDERED: METO-333 PO (10:40)
--- NOTE | 2022-06-27 10:41 | Discharge Summary ---
Discharge Summary Hospital Course Was the Problem List Reviewed?: Yes Problems/Dx: (1) Syncope (2) Non-ST elevation myocardial infarction (NSTEMI), initial care episode (3) Primary hypertension (4) Mixed hyperlipidemia (5) Schizoaffective disorder (6) Type 2 diabetes mellitus with complication (7) Anemia Hospital Course Date of Admission: Jun 24, 2022 at 19:50 Admission Diagnosis : Family Physician/Provider: Anthony Logan MD Date of Discharge: 06/27/22 Discharge Diagnosis: chest pain no evidence of ACS, dementia severe Hospital Course: Brief course after admitted for chest pain r/o ACS> Cardiology consulted and due to dementia and no significant sign of ACS conservative management in order and patient was DC in improved condition but Plavic held due to teeth bleeding for extraction Labs and Pending Lab Test: Laboratory Tests 06/26/22 11:10: Glucometer 157H 06/26/22 15:14: Glucometer 168H 06/26/22 16:29: Glucometer 143H 06/26/22 21:21: Glucometer 132H 06/27/22 05:32: Glucometer 95 06/27/22 05:51: White Blood Count 4.9, Red Blood Count 2.54L, Hemoglobin 8.4L, Hematocrit 25L, Mean Corpuscular Volume 98, Mean Corpuscular Hemoglobin 33, Mean Corpuscular Hemoglobin Concent 34, Red Cell Distribution Width 12.9, Platelet Count 144, Mean Platelet Volume 10.8, Immature Granulocyte % (Auto) 0, Neutrophils (%) (Auto) 63, Lymphocytes (%) (Auto) 28, Monocytes (%) (Auto) 7, Eosinophils (%) (Auto) 2, Basophils (%) (Auto) 0, Neutrophils # (Auto) 3.1, Lymphocytes # (Auto) 1.4, Monocytes # (Auto) 0.4, Eosinophils # (Auto) 0.1, Basophils # (Auto) 0.0, Immature Granulocyte # (Auto) 0.0, Sodium Level 144, Potassium Level 3.5L, Chloride Level 108H, Carbon Dioxide Level 26, Anion Gap 10, Blood Urea Nitrogen 15, Creatinine 0.59L, Estimat Glomerular Filtration Rate 106, BUN/Creatinine Ratio 25, Glucose Level 106H, Calcium Level 8.8, Corrected Calcium 9.1, Total Bilirubin 0.5, Aspartate Amino Transf (AST/SGOT) 40H, Alanine Aminotransferase (ALT/SGPT) 42, Alkaline Phosphatase 47, Total Protein 6.1L, Albumin 3.6 Home Meds Active Metoprolol Tartrate 25 Mg Tablet 6.25 Mg PO BID Reported Tylenol Extra Strength (Acetaminophen) 500 Mg Tablet 1,000 Mg PO Q6H PRN Tramadol HCl 50 Mg Tablet 50 Mg PO Q6H PRN Tylenol (Acetaminophen) 325 Mg Tablet 650 Mg PO Q6H PRN Miralax (Polyethylene Glycol 3350) 17 Gram Powd.pack 17 Gm PO Q8H PRN Metformin HCl 500 Mg Tablet 1,000 Mg PO BID TAKES 2 (500MG) TABLETS Zinc (Zinc Amino Acid Chelate) 50 Mg Tablet 25 Mg PO DAILY TAKES OF A (50MG) TABLET Rosuvastatin Calcium 20 Mg Tablet 20 Mg PO HS Olanzapine 10 Mg Tablet 20 Mg PO DAILY TAKES 2 (10MG) TABLETS Multivitamin 1 Each Tablet 1 Each PO DAILY Melatonin 3 Mg Tablet 3 Mg PO HS Jardiance (Empagliflozin) 10 Mg Tablet 10 Mg PO DAILY Clopidogrel (Clopidogrel Bisulfate) 75 Mg Tablet 75 Mg PO DAILY Aspirin EC (Aspirin) 81 Mg Tablet.dr 81 Mg PO DAILY Lisinopril 20 Mg Tablet 20 Mg PO DAILY Assessment/Pt Instructions NH rounds Discharge Planning: <30 minutes discharge planning Discharge Instructions Discharge Diet: No Restrictions Discharge Physical Examination Vital Signs Vital Signs Date Time Temp Pulse Resp B/P (MAP) Pulse Ox O2 Delivery O2 Flow Rate FiO2 06/27/22 09:41 49 06/27/22 08:00 Room Air 06/27/22 07:43 37.0 18 130/69 (89) 96 General Appearance: No Apparent Distress, WD/WN, Chronically ill Allergies: Coded Allergies: No Known Drug Allergies (Unverified , 02/15/20) Discharge Summary Date of Admission Jun 24, 2022 at 19:50 Date of Discharge Discharge Date: Jun 27, 2022 Admission Diagnosis Assessment: Chest pain Elevated troponin Dementia Discharge Diagnosis Chest pain Moved to fourth floor Appreciate cardiology (1) Syncope (2) Non-ST elevation myocardial infarction (NSTEMI), initial care episode (3) Primary hypertension (4) Mixed hyperlipidemia (5) Schizoaffective disorder (6) Type 2 diabetes mellitus with complication (7) Anemia Clinical Quality Measures DVT/VTE Risk/Contraindication: Contraindications-Pharm: Other *list below* Other: bleed teeth CORA PUENTE DO Jun 27, 2022 10:41
[2022-06-27 11:17] VITALS: BP 146/70
[2022-06-27 14:09] VITALS: BP 146/70
[2022-06-27] MEDS ORDERED: ROSUVASTATIN 20 MG (CRESTOR) TABLET PO SCH (21:00)
== END 2022-06-27 14:12 ==
LOC: EDUNIT# 17:55 → ER 17:57 → 4TH 19:50 → ICU 20:56 → 4TH 06-25 16:42
PROVIDERS: ADMIT Internal Medicine; ATTEND Internal Medicine
DX: R55 Syncope and collapse (principal); I21.4 Non-ST elevation (NSTEMI) myocardial infarction; F03.90 Unspecified dementia, unspecified severity, without behavioral disturbance, psychotic disturbance, mood disturbance, and anxiety; E78.2 Mixed hyperlipidemia; R91.8 Other nonspecific abnormal finding of lung field; E11.9 Type 2 diabetes mellitus without complications; F17.290 Nicotine dependence, other tobacco product, uncomplicated; F25.9 Schizoaffective disorder, unspecified; Z79.899 Other long term (current) drug therapy; Z79.84 Long term (current) use of oral hypoglycemic drugs; D64.9 Anemia, unspecified
CPT/HCPCS: 70450; 71045; 72125; 72131; 80053 ×4; 80061; 82947 ×3; 83690; 83735; 83874; 83880; 84484 ×2; 85025 ×4; 85610; 85730; 93005; 93041; 93306; 96360; 96366; 96375; 99284; G0378; 36415

== ENCOUNTER 2022-07-08 13:14 | Emergency (ER) | payer MEDICARE, MEDICAID ==
[~2022-07-08] VITALS: Ht 187 cm; Wt 72.5 kg
[~2022-07-08 13:14] MED LIST changes: +ACET-2267 PO; +ACET325T38 PO; +EMPA10TA PO; +MELA3TAB39 PO; +METO-333 PO; +MULT-1136 PO; +TRM50T PO; +ZINC50TA51 PO
--- NOTE | 2022-07-08 13:34 | ED Respiratory ---
General Chief Complaint: Respiratory Problems Stated Complaint: CHOKING Source: patient, EMS Exam Limitations: clinical condition History of Present Illness Date Seen by Provider: Jul 08, 2022 Time Seen by Provider: 13:15 Initial Comments Patient is a 67-year-old male who presents to the emergency room from [facility] just across the street by ambulance with a chief complaint of a "choking" spell. Evidently the patient had eaten lunch and had ambulated back to his bedroom. He either started coughing or vomiting and states that he coughed up food. The initial EMS call was for unresponsive/not breathing/CPR in progress however EMS informs me that he was awake and alert at their arrival satting 82% on room air. He is stridorous. He has a voice change. He complains of discomfort in his chest related to the vomiting or choking. He tells me that he did have a fall approximately an hour ago but he cannot really recall what caused it to happen. He seems to be somewhat of a poor historian. Overall it appears older than stated age, cachectic and frail, pale. detention records reveal a history of coronary artery disease (severe 3v by med record - medical therapy opted for per guardian), type 2 diabetes, hype rtension, schizoaffective disorder, general debility. It is of note that dysphagia of the oropharyngeal phase is noted and EMS reports nursing staff at the prison said that he has a history of aspiration. Patient is slightly hypertensive on arrival with a systolic blood pressure in the 180s. EMS reports that his heart rate was in the upper 120s on their arrival it is down to about 110 currently. On a nonrebreather the patient was satting 100%, he was transitioned to a nasal cannula at 3 L and is satting 97%. Review of systems limited secondary to the patient's clinical condition. Timing/Duration: just prior to arrival Severity: severe Prior Episodes/Possible Cause: occasional episodes Associated Symptoms: chest pain/soreness, shortness of breath Allergies and Home Medications Allergies Coded Allergies: No Known Drug Allergies (Unverified , 02/15/20) Patient Home Medication List Home Medication List Reviewed: Yes Acetaminophen (Tylenol) 325 Mg Tablet, 650 MG PO Q6H PRN for PAIN-MILD (1-4), (Reported) Entered as Reported by: LUIS CADR on 06/27/22 0940 Acetaminophen (Tylenol Extra Strength) 500 Mg Tablet, 1,000 MG PO Q6H PRN for PAIN-MILD (1-4), (Reported) Entered as Reported by: LUIS CARD on 06/27/22939 Aspirin (Aspirin EC) 81 Mg Tablet.dr, 81 MG PO DAILY, (Reported) Entered as Reported by: LUIS CARD on 06/27/22939 Empagliflozin (Jardiance) 10 Mg Tablet, 10 MG PO DAILY, (Reported) Entered as Reported by: LUIS CARD on 06/27/22939 Lisinopril (Lisinopril) 20 Mg Tablet, 20 MG PO DAILY, (Reported) Entered as Reported by: EL BRIDGES on 06/06/21 1155 Melatonin (Melatonin) 3 Mg Tablet, 3 MG PO HS, (Reported) Entered as Reported by: LUIS CARD on 06/27/22939 Metformin HCl (Metformin HCl) 500 Mg Tablet, 1,000 MG PO BID, (Reported) Entered as Reported by: LUIS CARD on 06/27/22939 Metoprolol Tartrate (Metoprolol Tartrate) 25 Mg Tablet, 6.25 MG PO BID Prescribed by: CORA PUENTE on 06/27/22 1040 Multivitamin (Multivitamin) 1 Each Tablet, 1 EACH PO DAILY, (Reported) Entered as Reported by: LUIS CARD on 06/27/22939 Olanzapine (Olanzapine) 10 Mg Tablet, 20 MG PO DAILY, (Reported) Entered as Reported by: LUIS CARD on 06/27/22939 Polyethylene Glycol 3350 (Miralax) 17 Gram Powd.pack, 17 GM PO Q8H PRN for CONSTIPATION-2ND LINE, (Reported) Entered as Reported by: LUIS CARD on 06/27/22939 Rosuvastatin Calcium (Rosuvastatin Calcium) 20 Mg Tablet, 20 MG PO HS, (Reported) Entered as Reported by: LUIS CARD on 06/27/22939 Tramadol HCl (Tramadol HCl) 50 Mg Tablet, 50 MG PO Q6H PRN for PAIN-MODERATE (5- 7), (Reported) Entered as Reported by: LUIS CARD on 06/27/22939 Zinc Amino Acid Chelate (Zinc) 50 Mg Tablet, 25 MG PO DAILY, (Reported) Entered as Reported by: LUIS CARD on 06/27/22 0940 Review of Systems Review of Systems Constitutional: see HPI EENTM: throat pain Respiratory: cough, short of breath Gastrointestinal: nausea Review of systems limited secondary to the patient's clinical condition, general debility and poor ability to give history Past Wdlvvjd-Gnoiev-Wpjkuk Hx Patient Social History Tobacco Use?: No Use of E-Cig and/or Vaping dev: Yes E-Cig or Vaping type used: Nicotine Substance use?: No Alcohol Use?: No Pt feels they are or have been: No Immunizations Up To Date Tetanus Booster (TDap): Unknown First/Initial COVID19 Vaccinat: UNKNOWN Second COVID19 Vaccination Óscar: UNKNOWN Third COVID19 Vaccination Date: UNKNOWN Seasonal Allergies Seasonal Allergies: No Past Medical History Surgery/Hospitalization HX: SCHIZOAFFECTIVE DO, BIPOLAR, DM, HTN, HLD, INSOMNIA, ARTHRITIS, DENTAL SURG 06/23/22 Surgeries: No (None reported) Respiratory: No Cardiac: Yes Coronary Artery Disease, Hypertension Neurological: No Reproductive Disorders: No Genitourinary: No Gastrointestinal: No Musculoskeletal: No Endocrine: Yes (OBTAINED BY [employer] RECORDS) Diabetes, Non-Insulin dep HEENT: No Cancer: No Psychosocial: Yes (SCHIZOAFFECTIVE DISORDER - OBTAINED BY [employer] RECORDS) Bipolar Integumentary: No (POOR HISTORIAN-UNABLE TO OBTAIN INFO) Family Medical History Patient reports no known family medical history. Physical Exam Vital Signs - First Documented 07/08/22 13:14 Temp 36.1 Pulse 120 Resp 24 B/P (MAP) 184/91 (122) Pulse Ox 100 O2 Delivery Non Rebreather O2 Flow Rate 15.00 Capillary Refill : Height: '" Weight: lbs. oz. kg; 17.74 BMI Method: General Appearance: thin (Cachectic, chronically ill-appearing male) Eyes: Bilateral Eye Normal Inspection, Bilateral Eye PERRL, Bilateral Eye Conjunctivae Pale HEENT: pharynx normal Neck: normal inspection Respiratory: respiratory distress (Mild), other (Diminished breath sounds in the bases bilaterally, otherwise quite stridorous, "hot potato" voice occasional scattered wheeze anteriorly in the upper lung husain) Cardiovascular: regular rate, rhythm, tachycardia (110), systolic murmur (right upper sternal border) Gastrointestinal: non tender, soft Extremities: normal range of motion, no pedal edema Neurologic/Psychiatric: alert, depressed affect Skin: warm/dry, pallor Progress/Results/Core Measures Suspected Sepsis SIRS Temperature: Pulse: Respiratory Rate: Laboratory Tests 07/08/22 13:25: White Blood Count 5.1 Blood Pressure / Mean: Laboratory Tests 07/08/22 13:25: Creatinine 0.74, Platelet Count 201 Results/Orders Lab Results Laboratory Tests Test 07/08/22 13:25 Range/Units White Blood Count 5.1 4.3-11.0 10^3/uL Red Blood Count 3.36 L 4.30-5.52 10^6/uL Hemoglobin 11.1 L 13.3-17.7 g/dL Hematocrit 35 L 40-54 % Mean Corpuscular Volume 103 H 80-99 fL Mean Corpuscular Hemoglobin 33 25-34 pg Mean Corpuscular Hemoglobin Concent 32 32-36 g/dL Red Cell Distribution Width 15.0 H 10.0-14.5 % Platelet Count 201 130-400 10^3/uL Mean Platelet Volume 9.8 9.0-12.2 fL Immature Granulocyte % (Auto) 1 % Neutrophils (%) (Auto) 61 42-75 % Lymphocytes (%) (Auto) 31 12-44 % Monocytes (%) (Auto) 6 0-12 % Eosinophils (%) (Auto) 1 0-10 % Basophils (%) (Auto) 0 0-10 % Neutrophils # (Auto) 3.1 1.8-7.8 10^3/uL Lymphocytes # (Auto) 1.6 1.0-4.0 10^3/uL Monocytes # (Auto) 0.3 0.0-1.0 10^3/uL Eosinophils # (Auto) 0.0 0.0-0.3 10^3/uL Basophils # (Auto) 0.0 0.0-0.1 10^3/uL Immature Granulocyte # (Auto) 0.0 0.0-0.1 10^3/uL Sodium Level 146 H 135-145 MMOL/L Potassium Level 4.3 3.6-5.0 MMOL/L Chloride Level 108 H 98-107 MMOL/L Carbon Dioxide Level 17 L 21-32 MMOL/L Anion Gap 21 H 5-14 MMOL/L Blood Urea Nitrogen 11 7-18 MG/DL Creatinine 0.74 0.60-1.30 MG/DL Estimat Glomerular Filtration Rate 99 BUN/Creatinine Ratio 15 Glucose Level 129 H 70-105 MG/DL Calcium Level 9.2 8.5-10.1 MG/DL My Orders Orders - MARIO PIMENTEL MD Communication For Respiratory (07/08/22 13:28) Chest 1 View, Ap/Pa Only (07/08/22 13:28) Ed Iv/Invasive Line Start (07/08/22 13:39) Cbc With Automated Diff (07/08/22 13:39) Basic Metabolic Panel (07/08/22 13:39) Vital Signs/I&O 07/08/22 13:14 Temp 36.1 Pulse 120 Resp 24 B/P (MAP) 184/91 (122) Pulse Ox 100 O2 Delivery Non Rebreather O2 Flow Rate 15.00 Capillary Refill : Progress Note : Time: 15:08 Progress Note Patient looks much much improved after supplemental oxygen and deep NT suctioning per respiratory. He is tolerating room air with oxygen saturations at 97 to 99%. No increased work of breathing or stridor is noted. No wheezing. Labs have been reviewed and show a hemoglobin of 11 which is quite a bit above his recent baseline. He is conversant and pleasant. He is in no acute distress. He does have some patchy alveolar infiltrate in the right midlung consistent with some aspiration. As he is rebounded so nicely but does have chest x-ray findings concerning for aspiration we will go ahead and put him on some Augmentin. He has no clinical or objective findings to warrant admission at this time. He is drinking water and comfortable. Will be discharged back to prison. Diagnostic Imaging Diagonstic Imaging: Xray Plain Films/CT/US/NM/MRI: chest Comments [facility], [facility]. [place], [place] NAME: MARIA INES ROSSI [facility] REC#: [id number] PT STATUS: REG ER : 1955 PHYSICIAN: MARIO PIMENTEL MD ADMIT DATE: 07/08/22/ER Draft Date of Exam:07/08/22 CHEST 1 VIEW, AP/PA ONLY EXAM: CHEST 1 VIEW, AP/PA ONLY INDICATION: Aspiration. COMPARISON: Chest radiograph 06/24/2022. FINDINGS: Normal heart size and central pulmonary vascularity. Patchy airspace opacity in the medial right lung base. No pleural effusion or pneumothorax. IMPRESSION: Patchy airspace opacity in the medial right lung base is new compared to the prior. Dictated on workstation # [id number] Dict: 07/08/22 1442 Trans: 07/08/22 1443 CV [id number] Interpreted by: GA DE LA CRUZ MD Electronically signed by: Critical Care Note Critical Care Start Time: 13:15 Stop Time: 14:00 Total Time (minutes) 35 minutes critical care time in the evaluation and management of this 67-year-old from a local prison with a choking spell and aspiration and hypoxia. Time includes initial evaluation management of hypoxia with supplemental oxygenation. Supervision of respiratory and deep NT suction. Evaluation of chest x-ray, laboratory studies. Review of past medical history a nd serial reevaluation of the patient. Departure Impression Primary Impression: Hypoxia Additional Impressions: Choking due to food (regurgitated) Qualified Codes: T17.320A - Food in larynx causing asphyxiation, initial encounter Aspiration into main bronchus Disposition: HOME, SELF-CARE Condition: Improved Departure-Patient Inst. Decision time for Depature: 15:09 Referrals: CLAUDIA HERNANDEZ MD (PCP/Family) Primary Care Physician Patient Instructions: Aspiration Pneumonia (DC) Add. Discharge Instructions: Monitor patient for signs of worsening breathing, distress. Breathing treatments as per prison orders. Augmentin 875 mg twice daily for 7 days. Return to the emergency department for any new, concerning or emergent complaints. Scripts Amoxicillin/Potassium Clav (Amox Tr-K Clv 875-125 mg Tab) 875 Mg-125 Mg Tablet 1 EACH PO BID for 7 Days, #14 TAB Prov: MARIO PIMENTEL MD 07/08/22 MARIO PIMENTEL MD Jul 08, 2022 13:34
[2022-07-08 13:45] LABS: BASOPHILS % (AUTO) 0 % (0-10); EOSINOPHILS % (AUTO) 1 % (0-10); HEMATOCRIT 35 % (40-54); HEMOGLOBIN 11.1 g/dL (13.3-17.7); LYMPHOCYTES # (AUTO) 1.6 10^3/uL (1.0-4.0); LYMPHOCYTES % (AUTO) 31 % (12-44); MEAN CORPUSCULAR HEMOGLOBIN 33 pg (25-34); MEAN CORPUSCULAR HGB CONC 32 g/dL (32-36); MEAN CORPUSCULAR VOLUME 103 fL (80-99); MEAN PLATELET VOLUME 9.8 fL (9.0-12.2); MONOCYTES # (AUTO) 0.3 10^3/uL (0.0-1.0); MONOCYTES % (AUTO) 6 % (0-12); NEUTROPHILS # (AUTO) 3.1 10^3/uL (1.8-7.8); NEUTROPHILS % (AUTO) 61 % (42-75); PLATELET COUNT 201 10^3/uL (130-400); WHITE BLOOD COUNT 5.1 10^3/uL (4.3-11.0)
[2022-07-08 13:53] LABS: POTASSIUM 4.3 MMOL/L (3.6-5.0)
[2022-07-08 13:54] LABS: CALCIUM 9.2 MG/DL (8.5-10.1)
[2022-07-08 13:58] LABS: CREATININE SERUM 0.74 MG/DL (0.60-1.30)
--- NOTE | 2022-07-08 14:43 | Diagnostic Imaging Report ---
EXAM: CHEST 1 VIEW, AP/PA ONLY INDICATION: Aspiration. COMPARISON: Chest radiograph 06/24/2022. FINDINGS: Normal heart size and central pulmonary vascularity. Patchy airspace opacity in the medial right lung base. No pleural effusion or pneumothorax. IMPRESSION: Patchy airspace opacity in the medial right lung base is new compared to the prior. Dictated by: Dictated on workstation # [id number]
[2022-07-08] MEDS ORDERED: AMOX1TAB12 PO (15:11)
[2022-07-08 15:55] VITALS: BP 129/71
== END 2022-07-08 15:55 | disposition home or self-care (01) ==
LOC: EDUNIT# 13:14 → ER 13:15
DX: T17.500A Unspecified foreign body in bronchus causing asphyxiation, initial encounter (principal); F17.210 Nicotine dependence, cigarettes, uncomplicated; Z28.310 Unvaccinated for COVID-19; W45.8XXA Other foreign body or object entering through skin, initial encounter
CPT/HCPCS: 36415; 71045; 80048; 85025

== ENCOUNTER 2022-10-10 12:54 | Emergency (ER) | payer MEDICARE, MEDICAID ==
[~2022-10-10] VITALS: Ht 187.9 cm; Wt 77.0 kg
[~2022-10-10 12:54] MED LIST changes: +AMOX1TAB12 PO
--- NOTE | 2022-10-10 13:18 | ED Fall/Injury ---
General Chief Complaint: Trauma-Non Activation Stated Complaint: FALL Nursing Triage Note: PT BROUGHT IN BY [facility] FROM [facility] WITH COMPLAINT OF UNWITNESSED FALL. PT IS COMPLAINING OF BUTT PAIN. EMS STATES HE WALKED TO THE COT FOR THEM. PT DOES NOT KNOW HOW HE ENDED UP ON THE FLOOR. History of Present Illness Date Seen by Provider: Oct 10, 2022 Time Seen by Provider: 12:55 Initial Comments 67-year-old male arrives via EMS from [facility] for an unwitnessed fall that occurred this morning. Patient was lying on the floor when EMS arrived, with minimal assistance he was able to stand and walk to cot. No weakness or pain in legs with ambulation. Only complaint at this time is lower lumbar and right buttocks pain. No external rotation or shortening of either leg noted. Occurred: this morning Severity: mild Injuries/Pain Location: back (lower lumbar, TTP) Context: unknown Loss of Consciousness: no loss of consciousness Associated Symptoms (Fall): Denies Symptoms Allergies and Home Medications Allergies Coded Allergies: No Known Drug Allergies (Unverified , 02/15/20) Patient Home Medication List Home Medication List Reviewed: Yes Acetaminophen (Tylenol) 325 Mg Tablet, 650 MG PO Q6H PRN for PAIN-MILD (1-4), (Reported) Entered as Reported by: LUIS CARD on 06/27/22 0940 Acetaminophen (Tylenol Extra Strength) 500 Mg Tablet, 1,000 MG PO Q6H PRN for PAIN-MILD (1-4), (Reported) Entered as Reported by: LUIS CARD on 06/27/22 0940 Amoxicillin/Potassium Clav (Amox Tr-K Clv 875-125 mg Tab) 875 Mg-125 Mg Tablet, 1 EACH PO BID Prescribed by: MARIO PIMENTEL on 07/08/22 1511 Aspirin (Aspirin EC) 81 Mg Tablet.dr, 81 MG PO DAILY, (Reported) Entered as Reported by: LUIS CARD on 06/27/22 0940 Empagliflozin (Jardiance) 10 Mg Tablet, 10 MG PO DAILY, (Reported) Entered as Reported by: LUIS CARD on 06/27/22 0940 Lisinopril (Lisinopril) 20 Mg Tablet, 20 MG PO DAILY, (Reported) Entered as Reported by: EL BRIDGES on 06/06/21 1155 Melatonin (Melatonin) 3 Mg Tablet, 3 MG PO HS, (Reported) Entered as Reported by: LUIS CARD on 06/27/22 09 Metformin HCl (Metformin HCl) 500 Mg Tablet, 1,000 MG PO BID, (Reported) Entered as Reported by: LUIS CARD on 06/27/22939 Metoprolol Tartrate (Metoprolol Tartrate) 25 Mg Tablet, 6.25 MG PO BID Prescribed by: CORA PUENTE on 06/27/22 1040 Multivitamin (Multivitamin) 1 Each Tablet, 1 EACH PO DAILY, (Reported) Entered as Reported by: LUIS CARD on 06/27/22 09 Olanzapine (Olanzapine) 10 Mg Tablet, 20 MG PO DAILY, (Reported) Entered as Reported by: LUIS CARD on 06/27/22939 Polyethylene Glycol 3350 (Miralax) 17 Gram Powd.pack, 17 GM PO Q8H PRN for CONSTIPATION-2ND LINE, (Reported) Entered as Reported by: LUIS CARD on 06/27/22939 Rosuvastatin Calcium (Rosuvastatin Calcium) 20 Mg Tablet, 20 MG PO HS, (Reported) Entered as Reported by: LUIS CARD on 06/27/22939 Tramadol HCl (Tramadol HCl) 50 Mg Tablet, 50 MG PO Q6H PRN for PAIN-MODERATE (5- 7), (Reported) Entered as Reported by: LUIS CARD on 06/27/22939 Zinc Amino Acid Chelate (Zinc) 50 Mg Tablet, 25 MG PO DAILY, (Reported) Entered as Reported by: LUIS CARD on 06/27/22939 Review of Systems Review of Systems Constitutional: no symptoms reported, see HPI Musculoskeletal: see HPI, back pain All Other Systems Reviewed Negative Unless Noted: Yes Past Exyyjct-Rwhobh-Ataijf Hx Patient Social History Tobacco Use?: No Use of E-Cig and/or Vaping dev: No Substance use?: No Alcohol Use?: No Immunizations Up To Date Tetanus Booster (TDap): Unknown First/Initial COVID19 Vaccinat: UNKNOWN Second COVID19 Vaccination Óscar: UNKNOWN Third COVID19 Vaccination Date: UNKNOWN Seasonal Allergies Seasonal Allergies: No Past Medical History Surgery/Hospitalization HX: SCHIZOAFFECTIVE DO, BIPOLAR, DM, HTN, HLD, INSOMNIA, ARTHRITIS, DENTAL SURG 06/23/22 Surgeries: No (None reported) Respiratory: No Cardiac: Yes Coronary Artery Disease, Hypertension Neurological: No Reproductive Disorders: No Genitourinary: No Gastrointestinal: No Musculoskeletal: No Endocrine: Yes (OBTAINED BY [employer] RECORDS) Diabetes, Non-Insulin dep HEENT: No Cancer: No Psychosocial: Yes (SCHIZOAFFECTIVE DISORDER - OBTAINED BY [employer] RECORDS) Bipolar Integumentary: No (POOR HISTORIAN-UNABLE TO OBTAIN INFO) Family Medical History Reviewed Nursing Family Hx Patient reports no known family medical history. Physical Exam Vital Signs Vital Signs - First Documented 10/10/22 12:56 Temp 36.3 Pulse 66 Resp 17 B/P (MAP) 95/60 (72) Pulse Ox 97 O2 Delivery Room Air Capillary Refill : Less Than 3 Seconds Height, Weight, BMI Height: '" Weight: lbs. oz. kg; 21.00 BMI Method: General Appearance: WD/WN, no apparent distress Neck: non-tender, full range of motion, supple, normal inspection Cardiovascular: normal peripheral pulses, regular rate, rhythm Respiratory: chest non-tender, lungs clear, normal breath sounds Gastrointestinal: normal bowel sounds, non tender, soft Back: normal inspection, no CVA tenderness, vertebral tenderness (L3-S1) Extremities: normal range of motion (active and passive, full ROM), normal inspection, normal capillary refill, pelvis stable; No swelling; other (no pain with ROM to Rt and Lt hip. Power V/V with resisted ROM to UEs and LEs. ) Neurologic/Psychiatric: no motor/sensory deficits, alert, normal mood/affect Skin: normal color, warm/dry; No ecchymosis Progress/Results/Core Measures Results/Orders My Orders Orders - MANNY MCKENNA Lumbar Spine - 2-3 Views (10/10/22 13:03) Pelvis With Right Hip 2-3views (10/10/22 13:03) Vital Signs/I&O 10/10/22 12:56 Temp 36.3 Pulse 66 Resp 17 B/P (MAP) 95/60 (72) Pulse Ox 97 O2 Delivery Room Air Blood Pressure Mean: 72 Progress Progress Note : Time: 12:55 Progress Note patient assessed. Will obtain x-rays of L spine, Pelvis and right hip. No complaints of pain. 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 Initial B/P 90s/60s, cuff too large for patients arm. Appropriate cuff placed, B/P 120s/80s. 1340 no Fx or D/L noted. Arthritic changes to hips and low back. Notified [facility], patient ready for d/c to facility. 1400 patient resting, easily arousable. Declines any requests. Discharge instructions and return precautions reviewed. 1500 patient continues resting in bed, no distress noted. 1520 patient ambulatory with minimal assistance, used urinal. Taking ice chips. Called [facility], they are transporting another patient, then will come to get him 1530 patient sitting up in Wheelchair, no requests. 1540 patient requesting to transfer back to bed. 1545 patient in wheelchair, sitting at nurse's desk with staff. Eating tad crackers and drinking water. 1600 [facility] staff here to transport patient. Diagnostic Imaging Diagonstic Imaging: Xray Plain Films/CT/US/NM/MRI: other (L Spine) Comments NAME: MARIA INES ROSSI MED REC#: [id number] PT STATUS: REG ER : 1955 PHYSICIAN: MANNY MCKENNA ADMIT DATE: 10/10/22/ER Draft Date of Exam:10/10/22 LUMBAR SPINE - 2-3 VIEWS INDICATION: Low back pain. Comparison with CT scan 06/24/2022. FINDINGS: 3 views. The lumbosacral spine shows good alignment. Body height is well-maintained. Mild degenerative changes are seen along the endplates with some hypertrophic lipping most prominent at L3-L4 and L4-L5. There is noted a large amount of stool within the colon with considerable impacted stool in the rectal vault. IMPRESSION: 1. Moderate degenerative disc disease. 2. There is rather massive constipation with marked rectal impacted stool. Dictated on workstation # [id number] Dict: 10/10/22 1340 Trans: 10/10/22 1349 [facility] [id number] Interpreted by: PRATIK ELLSWORTH MD Electronically signed by: Reviewed: Reviewed by Me Diagonstic Imaging: Xray Plain Films/CT/US/NM/MRI: pelvis, hip Comments [facility] [place], [place] NAME: MARIA INES ROSSI MED REC#: [id number] PT STATUS: REG ER : 1955 PHYSICIAN: MANNY MCKENNA ADMIT DATE: 10/10/22/ER Draft Date of Exam:10/10/22 PELVIS WITH RIGHT HIP 2-3VIEWS INDICATION: Right hip pain. EXAMINATION: Pelvis and right hip, 3 views. FINDINGS: There are moderate hypertrophic changes along the inferior aspect of the SI joints bilaterally. Femoral heads are in good alignment with the acetabula. There are mild arthritic changes along the joints bilaterally. No hypertrophic changes are seen. The articulating surfaces are smooth. There are no cortical fractures. No findings to suggest AVN. No soft tissue calcification. There is noted a large amount of impacted stool within the rectum with a maximal diameter of 12 cm. IMPRESSION: 1. Mild to moderate arthritic changes are noted of the SI joints and the hips bilaterally. 2. Markedly impacted stool within the rectum. Dictated on workstation # [id number] Dict: 10/10/22 1352 Trans: 10/10/22 1357 [id number] Interpreted by: PRATIK ELLSWORTH MD Electronically signed b Reviewed: Reviewed by Me Departure Impression Primary Impression: Fall Qualified Codes: W19.XXXA - Unspecified fall, initial encounter Disposition: 01 HOME, SELF-CARE Condition: Improved Departure-Patient Inst. Decision time for Depature: 14:10 Referrals: CLAUDIA HERNANDEZ MD (PCP/Family) Primary Care Physician Patient Instructions: Preventing Falls in Older Adults Add. Discharge Instructions: Activity as tolerated. Alternate Tylenol 650 mg and ibuprofen 600 mg every 4 hours for pain or fever. Assist patient with mobility and transfers. Return to the emergency department for new, urgent healthcare needs. All discharge instructions reviewed with patient and/or family. Voiced understanding. MANNY MCKENNA Oct 10, 2022 13:18
--- NOTE | 2022-10-10 13:49 | Diagnostic Imaging Report ---
INDICATION: Low back pain. Comparison with CT scan 06/24/2022. FINDINGS: 3 views. The lumbosacral spine shows good alignment. Body height is well-maintained. Mild degenerative changes are seen along the endplates with some hypertrophic lipping most prominent at L3-L4 and L4-L5. There is noted a large amount of stool within the colon with considerable impacted stool in the rectal vault. IMPRESSION: 1. Moderate degenerative disc disease. 2. There is rather massive constipation with marked rectal impacted stool. Dictated by: Dictated on workstation # [id number]
--- NOTE | 2022-10-10 13:57 | Diagnostic Imaging Report ---
INDICATION: Right hip pain. EXAMINATION: Pelvis and right hip, 3 views. FINDINGS: There are moderate hypertrophic changes along the inferior aspect of the SI joints bilaterally. Femoral heads are in good alignment with the acetabula. There are mild arthritic changes along the joints bilaterally. No hypertrophic changes are seen. The articulating surfaces are smooth. There are no cortical fractures. No findings to suggest AVN. No soft tissue calcification. There is noted a large amount of impacted stool within the rectum with a maximal diameter of 12 cm. IMPRESSION: 1. Mild to moderate arthritic changes are noted of the SI joints and the hips bilaterally. 2. Markedly impacted stool within the rectum. Dictated by: Dictated on workstation # [id number]
[2022-10-10 16:00] VITALS: BP 107/62
== END 2022-10-10 16:00 | disposition home or self-care (01) ==
LOC: EDUNIT# 12:54 → ER 12:56
DX: M54.50 Low back pain, unspecified (principal); W19.XXXA Unspecified fall, initial encounter; Y92.89 Other specified places as the place of occurrence of the external cause
CPT/HCPCS: 72100

== ENCOUNTER 2022-12-03 10:01 | Emergency (ER) | payer MEDICARE, MEDICAID ==
[~2022-12-03] VITALS: Ht 187 cm; Wt 73.4 kg
--- NOTE | 2022-12-03 10:19 | ED General ---
General Stated Complaint: FALL, HIGH TEMP, LEFT HAND IS RED, Source of Information: Patient Exam Limitations: No Limitations History of Present Illness Date Seen by Provider: Dec 03, 2022 Time Seen by Provider: 10:19 Initial Comments Patient is a 67-year-old male who presents from medical [place] chief complaint altered mental status, reaching at things that are not present, left hand swelling, redness, fever that is 100.6 this morning at the custodial. He had a mechanical trip and fall on Sunday, 2 days ago. No injuries reported at that time. He was tested for COVID at the custodial this morning and was negative. He was incontinent in his underwear of stool this morning which is unusual for him. He is able to answer simple interactive questions for the most part. Caregiver at the bedside states this has been a little off this morning as well. No known cough or shortness of breath. No nausea or vomiting. He was able to attend and eat breakfast this morning. He does have a history of schizoaffective disorder and some dementia also hypertension. Medical records reviewed from the custodial. Timing/Duration: 12-24 Hours Associated Systoms: Denies Symptoms Allergies and Home Medications Allergies Coded Allergies: No Known Drug Allergies (Unverified , 02/15/20) Patient Home Medication List Home Medication List Reviewed: Yes Acetaminophen (Tylenol) 325 Mg Tablet, 650 MG PO Q6H PRN for PAIN-MILD (1-4), (Reported) Entered as Reported by: LUIS CARD on 06/27/22 09 Acetaminophen (Tylenol Extra Strength) 500 Mg Tablet, 1,000 MG PO Q6H PRN for PAIN-MILD (1-4), (Reported) Entered as Reported by: LUIS CARD on 06/27/22 09 Amoxicillin/Potassium Clav (Amox Tr-K Clv 875-125 mg Tab) 875 Mg-125 Mg Tablet, 1 EACH PO BID Prescribed by: MARIO PIMENTEL on 07/08/22 1511 Aspirin (Aspirin EC) 81 Mg Tablet.dr, 81 MG PO DAILY, (Reported) Entered as Reported by: LUIS CARD on 06/27/22 09 Empagliflozin (Jardiance) 10 Mg Tablet, 10 MG PO DAILY, (Reported) Entered as Reported by: LUIS CARD on 06/27/22 09 Lisinopril (Lisinopril) 20 Mg Tablet, 20 MG PO DAILY, (Reported) Entered as Reported by: EL BRIDGES on 06/06/21 1155 Melatonin (Melatonin) 3 Mg Tablet, 3 MG PO HS, (Reported) Entered as Reported by: LUIS CARD on 06/27/22 09 Metformin HCl (Metformin HCl) 500 Mg Tablet, 1,000 MG PO BID, (Reported) Entered as Reported by: LUIS CARD on 06/27/22 09 Metoprolol Tartrate (Metoprolol Tartrate) 25 Mg Tablet, 6.25 MG PO BID Prescribed by: CORA PUENTE on 06/27/22 1040 Multivitamin (Multivitamin) 1 Each Tablet, 1 EACH PO DAILY, (Reported) Entered as Reported by: LUIS CARD on 06/27/22 09 Olanzapine (Olanzapine) 10 Mg Tablet, 20 MG PO DAILY, (Reported) Entered as Reported by: LUIS CARD on 06/27/22939 Polyethylene Glycol 3350 (Miralax) 17 Gram Powd.pack, 17 GM PO Q8H PRN for CONSTIPATION-2ND LINE, (Reported) Entered as Reported by: LUIS CARD on 06/27/22 09 Rosuvastatin Calcium (Rosuvastatin Calcium) 20 Mg Tablet, 20 MG PO HS, (Reported) Entered as Reported by: LUIS CARD on 06/27/22 09 Tramadol HCl (Tramadol HCl) 50 Mg Tablet, 50 MG PO Q6H PRN for PAIN-MODERATE (5- 7), (Reported) Entered as Reported by: LUIS CARD on 06/27/22 09 Zinc Amino Acid Chelate (Zinc) 50 Mg Tablet, 25 MG PO DAILY, (Reported) Entered as Reported by: LUIS CARD on 06/27/22939 Review of Systems Review of Systems Constitutional: see HPI Cardiovascular: no symptoms reported Gastrointestinal: no symptoms reported Musculoskeletal: no symptoms reported ROS likely unreliable from the patient due to underlying mental health Past Zbbdkwk-Ubsxsb-Qyeefd Hx Immunizations Up To Date Tetanus Booster (TDap): Unknown First/Initial COVID19 Vaccinat: UNKNOWN Second COVID19 Vaccination Óscar: UNKNOWN Third COVID19 Vaccination Date: UNKNOWN Seasonal Allergies Seasonal Allergies: No Past Medical History Surgery/Hospitalization HX: SCHIZOAFFECTIVE DO, BIPOLAR, DM, HTN, HLD, INSOMNIA, ARTHRITIS, DENTAL SURG 06/23/22 Surgeries: No (None reported) Respiratory: No Cardiac: Yes Coronary Artery Disease, Hypertension Neurological: No Reproductive Disorders: No Genitourinary: No Gastrointestinal: No Musculoskeletal: No Endocrine: Yes (OBTAINED BY [employer] RECORDS) Diabetes, Non-Insulin dep HEENT: No Cancer: No Psychosocial: Yes (SCHIZOAFFECTIVE DISORDER - OBTAINED BY [employer] RECORDS) Bipolar Integumentary: No (POOR HISTORIAN-UNABLE TO OBTAIN INFO) Family Medical History Patient reports no known family medical history. Physical Exam Vital Signs Vital Signs - First Documented 12/03/22 10:15 Temp 36.2 Pulse 56 Resp 18 B/P (MAP) 130/65 (86) Pulse Ox 98 Capillary Refill : Height, Weight, BMI Height: '" Weight: lbs. oz. kg; 21.00 BMI Method: General Appearance: No Apparent Distress, WD/WN, Thin Eyes: Bilateral Eye Normal Inspection, Bilateral Eye PERRL, Bilateral Eye EOMI HEENT: Other (slightly dry oral mucoas) Neck: Normal Inspection Respiratory: Lungs Clear, Normal Breath Sounds, No Accessory Muscle Use, No Respiratory Distress Cardiovascular: Regular Rate, Rhythm, Normal Peripheral Pulses (2+ radial bilaterally) Gastrointestinal: Normal Bowel Sounds, Non Tender, Soft, Mass (mid upper abdomen, extending to Left lower abdomen; non tender; non pulsatile) Extremity: Normal Capillary Refill, Normal Range of Motion, Other (left hand with mild edema and erythema; no open wounds/abrasions, no discrete abscesses or streaking from the hand) Neurologic/Psychiatric: Alert, No Motor/Sensory Deficits, Disoriented ((per baseline)), Other (flat affect) Skin: Normal Color, Warm/Dry, Other (see extremity exam above) Focused Exam Lactate Level 12/03/22 10:30: Lactic Acid Level 1.49 Lactic Acid Level Laboratory Tests Test 12/03/22 10:30 Lactic Acid Level 1.49 MMOL/L (0.50-2.00) Progress/Results/Core Measures Suspected Sepsis SIRS Temperature: Pulse: Respiratory Rate: Laboratory Tests 12/03/22 10:30: White Blood Count 5.7 Blood Pressure / Mean: 12/03/22 10:30: Lactic Acid Level 1.49 Laboratory Tests 12/03/22 10:30: Creatinine 0.69, INR Comment 1.0, Platelet Count 170, Total Bilirubin 0.9 Results/Orders Lab Results Laboratory Tests Test 12/03/22 10:23 12/03/22 10:30 Range/Units Urine Color ORANGE Urine Clarity CLEAR Urine pH 5.5 5-9 Urine Specific [place] 1.020 1.016-1.022 Urine Protein NEGATIVE NEGATIVE Urine Glucose (UA) 3+ H NEGATIVE Urine Ketones TRACE H NEGATIVE Urine Nitrite NEGATIVE NEGATIVE Urine Bilirubin NEGATIVE NEGATIVE Urine Urobilinogen 1.0 < = 1.0 MG/DL Urine Leukocyte Esterase NEGATIVE NEGATIVE Urine RBC (Auto) NEGATIVE NEGATIVE Urine RBC NONE /HPF Urine WBC 0-2 /HPF Urine Squamous Epithelial Cells 0-2 /HPF Urine Crystals NONE /LPF Urine Bacteria NEGATIVE /HPF Urine Casts PRESENT /LPF Urine Hyaline Casts 0-2 H /LPF Urine Mucus SMALL H /LPF Urine Culture Indicated CULTURE PENDING White Blood Count 5.7 4.3-11.0 10^3/uL Red Blood Count 3.91 L 4.30-5.52 10^6/uL Hemoglobin 12.3 L 13.3-17.7 g/dL Hematocrit 36 L 40-54 % Mean Corpuscular Volume 93 80-99 fL Mean Corpuscular Hemoglobin 32 25-34 pg Mean Corpuscular Hemoglobin Concent 34 32-36 g/dL Red Cell Distribution Width 14.0 10.0-14.5 % Platelet Count 170 130-400 10^3/uL Mean Platelet Volume 9.8 9.0-12.2 fL Immature Granulocyte % (Auto) 1 % Neutrophils (%) (Auto) 70 42-75 % Lymphocytes (%) (Auto) 21 12-44 % Monocytes (%) (Auto) 7 0-12 % Eosinophils (%) (Auto) 1 0-10 % Basophils (%) (Auto) 0 0-10 % Neutrophils # (Auto) 4.0 1.8-7.8 10^3/uL Lymphocytes # (Auto) 1.2 1.0-4.0 10^3/uL Monocytes # (Auto) 0.4 0.0-1.0 10^3/uL Eosinophils # (Auto) 0.1 0.0-0.3 10^3/uL Basophils # (Auto) 0.0 0.0-0.1 10^3/uL Immature Granulocyte # (Auto) 0.0 0.0-0.1 10^3/uL Prothrombin Time 14.1 12.2-14.7 SEC INR Comment 1.0 0.8-1.4 Activated Partial Thromboplast Time 31 24-35 SEC Sodium Level 140 135-145 MMOL/L Potassium Level 3.8 3.6-5.0 MMOL/L Chloride Level 107 98-107 MMOL/L Carbon Dioxide Level 21 21-32 MMOL/L Anion Gap 12 5-14 MMOL/L Blood Urea Nitrogen 21 H 7-18 MG/DL Creatinine 0.69 0.60-1.30 MG/DL Estimat Glomerular Filtration Rate 101 BUN/Creatinine Ratio 30 Glucose Level 185 H 70-105 MG/DL Lactic Acid Level 1.49 0.50-2.00 MMOL/L Calcium Level 9.1 8.5-10.1 MG/DL Corrected Calcium 9.2 8.5-10.1 MG/DL Total Bilirubin 0.9 0.1-1.0 MG/DL Aspartate Amino Transf (AST/SGOT) 28 5-34 U/L Alanine Aminotransferase (ALT/SGPT) 36 0-55 U/L Alkaline Phosphatase 52 40-136 U/L Total Protein 7.0 6.4-8.2 GM/DL Albumin 3.9 3.2-4.5 GM/DL My Orders Orders - MARIO PIMENTEL MD Cbc With Automated Diff (12/03/22 10:29) Comprehensive Metabolic Panel (12/03/22 10:29) Blood Culture (12/03/22 10:29) Sputum Culture (12/03/22 10:29) Urinalysis (12/03/22 10:29) Urine Culture (12/03/22 10:29) Protime With Inr (12/03/22 10:29) Partial Thromboplastin Time (12/03/22 10:29) Chest 1 View, Ap/Pa Only (12/03/22 10:29) Ed Iv/Invasive Line Start (12/03/22 10:29) Ed Iv/Invasive Line Start (12/03/22 10:29) Vital Signs Adult Sepsis Patie Q15M (12/03/22 10:29) O2 (12/03/22 10:29) Remove Rings In Anticipation O (12/03/22 10:29) Lactic Acid Analyzer (12/03/22 10:29) Vital Signs/I&O 12/03/22 10:15 Temp 36.2 Pulse 56 Resp 18 B/P (MAP) 130/65 (86) Pulse Ox 98 Capillary Refill : Progress Note : Time: 12:17 Progress Note Patient seen and evaluated, 67-year-old presents with left hand swelling, low-gr emma fever and not acting like himself. Evaluation today includes a "septic" work-up. CBC, chemistry, lactic acid, coags, urinalysis chest x-ray. Based on history and physical examination differential diagnosis includes cellulitis of the left hand after fall, electrolyte imbalance, pneumonia, urinary tract infection. Based on laboratory studies, CBC normal, chemistry normal except for mild increased glucose, normal coags, normal urine normal chest x-ray I suspect viral etiology in origin. I suspect the swelling in the left hand is likely due to contusion in his hand being dependent. (no bony tenderness and normal ROM). It is not overly warm or significantly erythematous, there is no wound to the hand, wrist or forearm that appears infected. His vital signs of been stable. He is afebrile here and received no medications prior to arrival. He did COVID test prior to coming to the emergency room and it was reported as negative. He has baseline schizoaffective disorder and this likely explains his responding to apparent visual hallucinations. He has voiced no complaints throughout his stay. Overall clinically looks well. I recommended elevating the left hand to reduce swelling. Monitoring for worsening or new, concerning symptoms. Caregiver at bedside verbalized understanding. All questions are sought and answered. Patient is stable for discharge Diagnostic Imaging Diagonstic Imaging: Xray Plain Films/CT/US/NM/MRI: chest Comments interpreted by me - no focal infiltrates, effusions or other acute pathology Departure Impression Primary Impression: Contusion of left hand Qualified Codes: S60.222A - Contusion of left hand, initial encounter Disposition: 01 HOME, SELF-CARE Condition: Stable Departure-Patient Inst. Decision time for Depature: 12:22 Referrals: CLAUDIA HERNANDEZ MD (PCP/Family) Primary Care Physician Patient Instructions: Contusion (DC) Add. Discharge Instructions: Continue routine home medications. He needs to elevate the left hand to decrease swelling. If he continues to run fever or becomes short of breath or has vomiting or for any other emergent, concerning symptoms, please bring him back to the emergency room for reevaluation. Copy Copies To 1: CLAUDIA HERNANDEZ MD, KATHRYN M MD Dec 03, 2022 10:19
[2022-12-03 10:38] LABS: BILIRUBIN,URINE NEGATIVE (NEGATIVE); CLARITY,URINE CLEAR; COLOR,URINE ORANGE; GLUCOSE, URINE (UA) 3+ (NEGATIVE); KETONES,URINE TRACE (NEGATIVE); LEUKOCYTE ESTERASE ,URINE NEGATIVE (NEGATIVE); NITRITE,URINE NEGATIVE (NEGATIVE); PH,URINE 5.5 (5-9); PROTEIN,URINE NEGATIVE (NEGATIVE)
[2022-12-03 10:45] LABS: BASOPHILS % (AUTO) 0 % (0-10); EOSINOPHILS # (AUTO) 0.1 10^3/uL (0.0-0.3); EOSINOPHILS % (AUTO) 1 % (0-10); HEMATOCRIT 36 % (40-54); HEMOGLOBIN 12.3 g/dL (13.3-17.7); LYMPHOCYTES # (AUTO) 1.2 10^3/uL (1.0-4.0); LYMPHOCYTES % (AUTO) 21 % (12-44); MEAN CORPUSCULAR HEMOGLOBIN 32 pg (25-34); MEAN CORPUSCULAR HGB CONC 34 g/dL (32-36); MEAN CORPUSCULAR VOLUME 93 fL (80-99); MEAN PLATELET VOLUME 9.8 fL (9.0-12.2); MONOCYTES # (AUTO) 0.4 10^3/uL (0.0-1.0); MONOCYTES % (AUTO) 7 % (0-12); NEUTROPHILS % (AUTO) 70 % (42-75); PLATELET COUNT 170 10^3/uL (130-400); WHITE BLOOD COUNT 5.7 10^3/uL (4.3-11.0)
[2022-12-03 10:47] LABS: BACTERIA,URINE NEGATIVE /HPF; HYALINE CASTS, URINE 0-2 /LPF; SQUAMOUS EPITHELIAL CELL,UR 0-2 /HPF; WBC,URINE 0-2 /HPF
[2022-12-03 10:54] LABS: ALBUMIN 3.9 GM/DL (3.2-4.5); POTASSIUM 3.8 MMOL/L (3.6-5.0)
[2022-12-03 10:55] LABS: CALCIUM 9.1 MG/DL (8.5-10.1)
[2022-12-03 10:58] LABS: BILIRUBIN,TOTAL 0.9 MG/DL (0.1-1.0)
[2022-12-03 11:00] LABS: CREATININE SERUM 0.69 MG/DL (0.60-1.30)
[2022-12-03 11:11] LABS: PROTHROMBIN TIME PATIENT 14.1 SEC (12.2-14.7)
[2022-12-03 13:00] VITALS: BP 136/66
--- NOTE | 2022-12-04 13:58 | Diagnostic Imaging Report ---
CHEST 1 VIEW, AP/PA ONLY INDICATION: Fever COMPARISON: None. FINDINGS: Lungs: Normal lung volume. No focal consolidation. Stable pulmonary vasculature. Pleura: No pleural effusion or pneumothorax. Heart and Mediastinum: Cardiomediastinal silhouette and great vessels of the thorax are stable. Osseous Structures and Soft Tissues: No acute osseous abnormality. Normal soft tissues. IMPRESSION: No acute cardiopulmonary process. Dictated by: Dictated on workstation # [id number]
== END 2022-12-03 13:00 | disposition home or self-care (01) ==
LOC: EDUNIT# 10:01 → ER 10:02
DX: S60.222A Contusion of left hand, initial encounter (principal); W01.0XXA Fall on same level from slipping, tripping and stumbling without subsequent striking against object, initial encounter
CPT/HCPCS: 36415; 71045; 80053; 81000; 83605; 85025; 85610; 85730; 87040; 87088